=== PATIENT | male | born 1950 | race Caucasian/White ===

== ENCOUNTER → 2018-05-08 13:17 | Outpatient (CLI) | payer BC, SELFPAY ==
[2018-05-03 13:34] VITALS: BMI 31.3
[2018-05-08 16:08] LABS: AST(SGOT) 29 U/L (15-37); Alanine Aminotransfer ALT/SGPT 52 U/L (16-61); Albumin, Serum 3.9 g/dL (3.2-5.0); Alkaline Phosphatase 66 U/L (45-117); Bilirubin, Direct 0.18 mg/dL (0.00-0.30); Cholesterol 208 mg/dL (200); Globulin 3.9 g/dL (2.2-4.2); High Density Lipoprotein 45 mg/dL; Protein, Total 7.8 g/dL (6.4-8.2); Triglycerides 178 mg/dL; Very Low Density Lipoprotein 36 mg/dL (5-40)
--- OUTSIDE RECORDS SUMMARY | 2018-06-24 17:46 | XMS RPT_ITS | Clinical Summary ---
:1950 Author Organization [facility] Address [address] [place] [address] Phone Care Team Providers Name Role Phone [facility] Nurse Unavailable Unavailable Conditions or Problems Problem Name Problem Onset Status Entry Provider Comment Standard Annotate Code Date Date Description Body mass Z68.32 Active Luis S Body mass index index (BMI) (ICD-10-C 05/30 05/30 MD Faisal (BMI) 32.0-32.9, M) 32.0-32.9, adult adult Chest pain on 89643535 Active Kimberley M Chest pain on exertion (SNOMED 05/30 05/30 [place], exertion CT) RN Hyperlipidemia 11463929 Active Kimberley M Hyperlipidemia (SNOMED 05/30 05/30 [place], [place]) RN Body mass Z68.31 Inactive Kimberley M Body mass index index (BMI) (ICD-10-C 05/30 05/30 [place], (BMI) 31.0-31.9, M) RN 31.0-31.9, adult adult Medications Medication Instructions Start Stop Generic Name [facility] Provider Date Date TOPROL XL 25 MG One tablet by / METOPROLOL [id number] Luis S [id number] mouth daily 03 SUCCINATE MD Faisal PLAVIX 75 MG 4 tabs today / CLOPIDOGREL [id number] Rupert S TABS then 1 daily 03 BISULFATE MD Faisal ASPIRIN EC 81 One tablet by / ASPIRIN [id number] Kimberley M MG TBEC mouth daily DELMIS Dockery ASPIRIN EC 81 One tablet by ASPIRIN [id number] Luis S MG TBEC mouth daily MD Faisal Y-NFQTHF-F-CYST One tablet by / ACETYLCYSTEINE 25469905472 Kimberley Varela EINE 600 MG mouth twice DELMIS Dockery CAPS daily H-CLXJSZ-S-CYST One tablet by ACETYLCYSTEINE [id number] Luis S EINE 600 MG mouth twice MD Faisal CAPS daily FERROUS SULFATE One tablet by / FERROUS SULFATE [id number] Kimberley Varela 325 (65 Fe) MG mouth twice DELMIS Dockery TABS daily ASPIRIN 325 MG One tablet by / ASPIRIN [id number] Kimberley M TABS mouth daily DELMIS Dockery HYDROXYZINE HCL (Atarax) As / HYDROXYZINE HCL 40278131321 Luis S 25 MG TABS needed MD Faisal VALERIAN ROOT as needed / VALERIAN [id number] Rupert S 450 MG CAPS 03 MD Faisal GREEN Two tablets by / GREEN TEA-HOODIA [id number] Luis S TEA-HOODIA CAPS mouth daily 03 CAPS MD Faisal GARLIC TABS One tablet by / GARLIC-CALCIUM 64082055742 Luis S mouth daily 03 TABS MD Faisal VITAMIN B One tablet by / B COMPLEX 76039321553 Rupert S COMPLEX TABS mouth daily 03 VITAMINS MD Faisal OMEGA 3 CPDR One tablet by / OMEGA-3 FATTY [id number] Luis S mouth daily 03 ACIDS CPDR MD Faisal OS-MARTHA 500 + D One tablet by / CALCIUM Luis S 500-200 MG-UNIT mouth twice 03 CARBONATE-VITAMIN MD Faisal TABS daily D MULTIVITAMIN One tablet by / MULTIPLE [id number] Ru[place] S ADULT TABS mouth daily 03 VITAMINS-MINERALS MD Faisal FERROUS SULFATE One tablet by / FERROUS SULFATE [id number] Rupert S 325 (65 Fe) MG mouth daily MD Faisal TABS Medications Administered No information available. Allergies, Adverse Reactions, Alerts Allergy Name Reaction Description Start Date Severity Status Provider NKDA Critical Active Kimberley M DELMIS Dockery Results Date Name Value Unit Range Flag Description Clinical Lists Update: Preload SMOK STATUS Former smoker Tobacco use [facility] Lab Report: Basic Metabolic Profile (BMP) ANION GAP 6 5-15 anion gap, serum CO2 32.0 mmol/L 21.0-32.0 carbon dioxide, venous blood CHLORIDE 103 mmol/L 98-107 chloride, serum POTASSIUM 4.1 mmol/L 3.5-5.1 potassium, serum SODIUM 141 mmol/L 136-145 sodium, serum CALCIUM 9.7 mg/dL 8.5-10.1 calcium, serum BUN/CREAT 13.3 RATIO 10-20 urea nitrogen/creatinine ratio, serum GFRAA 91 mL/min >60 Glomerular Filtration rate GFR EST 75 mL/min >60 estimated glomerular filtration rate CREATININE 1.05 mg/dL 0.70-1.30 creatinine, serum BUN 14 mg/dL 7-18 urea nitrogen, blood GLUCOSE SER 79 mg/dL 70-110 blood glucose Plan of Care Type Date Detail Appointment 03:30 PM Selam Arciniega PA-C, [address] [facility] [address], [address], [place], [address], Pending order MMM Pending order Follow Up Appt 3 months Pending order *Hepatic Function Panel Pending order *Lipid Profile CC PCP Pending order *BMP Pending order *CBC with Differential Pending order Left Heart Cath Procedures Code Procedure Name Date Entry Date F/U MMM MMM FUA 3 months Follow Up Appt 3 months 0667-1 *BMP 0788-1 *Hepatic Function Panel 81138-5 *Lipid Profile CC PCP Vital Signs No information available.
--- OUTSIDE RECORDS SUMMARY | 2018-06-24 17:46 | XMS RPT_ITS | Clinical Summary ---
:1950 Author Organization [facility] Address [address] [place] [address] Phone Care Team Providers Name Role Phone [facility] Nurse Unavailable Unavailable Conditions or Problems Problem Name Problem Onset Status Entry Provider Comment Standard Annotate Code Date Date Description Body mass Z68.32 Active Pal[place] S Body mass index index (BMI) (ICD-10-C 05/30 05/30 MD Faisal (BMI) 32.0-32.9, M) 32.0-32.9, adult adult Chest pain on 25048788 Active Kimberley M Chest pain on exertion (SNOMED 05/30 05/30 [place], exertion CT) RN Hyperlipidemia 18633942 Active Kimberley M Hyperlipidemia (SNOMED 05/30 05/30 [place], CT) RN Body mass Z68.31 Inactive Kimberley M Body mass index index (BMI) (ICD-10-C 05/30 05/30 [place], (BMI) 31.0-31.9, M) RN 31.0-31.9, adult adult Medications Medication Instructions Start Stop Generic Name [facility] Provider Date Date TOPROL XL 25 MG One tablet by / METOPROLOL [id number] Luis S [id number] mouth daily 03 SUCCINATE MD Faisal PLAVIX 75 MG 4 tabs today / CLOPIDOGREL [id number] Luis S TABS then 1 daily 03 BISULFATE MD Faisal ASPIRIN EC 81 One tablet by / ASPIRIN 65453488286 Kimberley M MG TBEC mouth daily DELMIS Dockery ASPIRIN EC 81 One tablet by ASPIRIN 16588732607 [place] S MG TBEC mouth daily MD Faisal P-GNYRGU-D-CYST One tablet by / ACETYLCYSTEINE 24018862787 Kimberley Varela EINE 600 MG mouth twice DELMIS Dockery CAPS daily I-FKJDVT-M-CYST One tablet by ACETYLCYSTEINE 34746699458 [place] S EINE 600 MG mouth twice MD Faisal CAPS daily FERROUS SULFATE One tablet by / FERROUS SULFATE [id number] Kimberley Varela 325 (65 Fe) MG mouth twice DELMIS Dockery TABS daily ASPIRIN 325 MG One tablet by / ASPIRIN 35760965264 Kimberley M TABS mouth daily DELMIS Dockery HYDROXYZINE HCL (Atarax) As / HYDROXYZINE HCL 45751780074 [place] S 25 MG TABS needed MD Faisal VALERIAN ROOT as needed / VALERIAN 39015805465 Pal[place] S 450 MG CAPS 03 MD Faisal GREEN Two tablets by / GREEN TEA-HOODIA 51906320292 Palermo S TEA-HOODIA CAPS mouth daily 03 CAPS MD Faisal GARLIC TABS One tablet by / GARLIC-CALCIUM 00137338940 Luis S mouth daily 03 TABS MD Faisal VITAMIN B One tablet by / B COMPLEX 96043883545 Luis S COMPLEX TABS mouth daily 03 VITAMINS MD Faisal OMEGA 3 CPDR One tablet by / OMEGA-3 FATTY 87195682505 Luis S mouth daily 03 ACIDS CPDR MD Faisal OS-MARTHA 500 + D One tablet by / CALCIUM Luis S 500-200 MG-UNIT mouth twice 03 CARBONATE-VITAMIN MD Faisal TABS daily D MULTIVITAMIN One tablet by / MULTIPLE [id number] [place] S ADULT TABS mouth daily 03 VITAMINS-MINERALS MD Faisal FERROUS SULFATE One tablet by / FERROUS SULFATE [id number] Luis S 325 (65 Fe) MG mouth daily MD Faisal TABS Medications Administered No information available. 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 Dietary management education, guidance, and counseling (procedure) MEDS REVIEW Done Documentation of current medications (procedure) Lab Report: CBC W/Diff, Automated LYMPHCT AUTO 1.83 X10 3/UL 10*3/mm3 0.83-4.51 lymphocyte count, blood, automated ANC 2.8 X10 3/UL 10*3/mm3 2.0-7.7 neutrophil count, blood IMM GRANU % 0.300 % 0.0-0.9 immature granulocytes, percentage of total cells, blood BASOPHIL % 1.2 % 0-1 H basophils as percent of blood leukocytes EOSINOPHIL % 5.7 % 0-5 H eosinophils as percent of blood leukocytes MONOCYTE % 16.1 % 0-10 H monocytes as percent of blood leukocytes LYMPHS % 30.7 % 19-41 lymphocytes as percent of blood leukocytes PMN % 46.0 % 47-70 L neutrophils as percent of blood leukocytes MPV 9.7 fL 6.2-12.0 mean platelet volume PLATELETS 225 10*3/mm3 150-450 platelet count RDW-SD 45.4 fL 35.1-43.9 H red blood cell distribution width, size density RDW 13.1 % 11.6-14.6 red blood cell distribution width MCHC RBC 34.3 G/GL g/dL 32-36 mean corpuscular hemoglobin concentration, RBC MCH 32.6 pg 27.0-32.0 H mean corpuscular hemoglobin, RBC MCV 95.3 fL 80-94 H mean corpuscular volume, RBC HCT 50.2 % 40-54 hematocrit, blood HGB 17.2 g/dL 13.0-16.5 H hemoglobin, blood RBC M/UL 5.27 10*6/uL 4.6-6.2 red blood count WBC BLOOD 6.0 10*9/L 4.4-11.0 leukocyte (white blood cells) count, blood Lab Report: Basic Metabolic Profile (BMP) ANION [...] GLUCOSE SER 79 mg/dL 70-110 blood glucose Lab Report: Liver Profile BILI DIRECT 0.12 mg/dL 0.00-0.30 bilirubin, serum, direct BILI TOTAL 0.40 mg/dL 0.20-1.00 bilirubin, serum, total SGPT (ALT) 58 U/L 12-78 alanine aminotransferase (SGPT), serum ALK PHOS 81 U/L 45-117 alkaline phosphatase, serum SGOT (AST) 35 U/L 15-37 aspartate aminotransferase (SGOT), serum GLOBULIN TOT 4.0 g/dL 2.2-4.2 globulins, serum, total ALBUMIN 3.8 g/dL 3.4-5.0 albumin, serum PROTEIN, TOT 7.8 g/dL 6.4-8.2 protein, total, serum Lab Report: Lipid Profile VLDL 57 mg/dL 5-40 H very low density lipoproteins LDL 109 mg/dL 0-130 Cholesterol in LDL [Mass/volume] in Serum or Plasma HDL 40 mg/dL Cholesterol in HDL [Mass/volume] in Serum or Plasma TRIGLYCRDES 287 mg/dL H Triglyceride [Mass/volume] in Serum or Plasma CHOLESTEROL 206 mg/dL 200 H Cholesterol [Mass/volume] in Serum or Plasma Plan of Care Type Date Detail Appointment 01:00 PM Luis Malone MD, [address], [address], [place], [address], Appointment 03:30 PM Selam Arciniega PA-C, [address], [address], [place], [address], Pending order MMM Pending order Follow Up Appt 3 months Pending order *Hepatic Function Panel Pending order *Lipid Profile CC PCP Pending order *BMP Pending order *CBC with Differential Pending order Left Heart Cath Procedures Code Procedure Name Date Entry Date F/U MMM MMM FUA 3 months Follow Up Appt 3 months 0667-1 *BMP 0788-1 *Hepatic Function Panel 30036-0 *Lipid Profile CC PCP 0184-1 *CBC with Differential Vital Signs Date Name Value Unit Description BMI (Body Mass Index) 32.42 kg/m2 Body Mass Index [Ratio] BP Diastolic 84 mm[Hg] blood pressure, diastolic - 8462-4 BP Systolic 140 mm[Hg] blood pressure, systolic - 8480-6 Heart Rate 70 /min pulse rate E&M - 8867-4 Height 67 [in_us] height E&M - 8302-2 Respiratory Rate 16 /min respiratory rate E&M - 9279-1 Weight Measured 207 [lb_av] weight E&M - 3141-9
--- OUTSIDE RECORDS SUMMARY | 2018-06-24 17:46 | XMS RPT_ITS | Clinical Summary ---
:1950 Author Organization [facility] Address [address] [place] [address] Phone Care Team Providers Name Role Phone Laurie Morales RN Unavailable Unavailable Conditions or Problems Problem Name Problem Onset Status Entry Provider Comment Standard Annotate Code Date Date Description Body mass Z68.32 Active Luis S Body mass index index (BMI) (ICD-10-C 05/30 05/30 MD Faisal (BMI) 32.0-32.9, M) 32.0-32.9, adult adult Chest pain on 84714972 Active Kimberley M Chest pain on exertion (SNOMED 05/30 05/30 [place], exertion CT) RN Hyperlipidemia 44041155 Active Kimberley M Hyperlipidemia (SNOMED 05/30 05/30 [place], CT) RN Body mass Z68.31 Inactive Kimberley M Body mass index index (BMI) (ICD-10-C 05/30 05/30 [place], (BMI) 31.0-31.9, M) RN 31.0-31.9, adult adult Medications Medication Instructions Start Stop Generic Name [facility] Provider Date Date TOPROL XL 25 MG One tablet by / METOPROLOL [id number] Luis S [id number] mouth daily 03 SUCCINATE MD Faisal PLAVIX 75 MG 4 tabs today / CLOPIDOGREL [id number] [place] S TABS then 1 daily 03 BISULFATE MD Faisal ASPIRIN EC 81 One tablet by / ASPIRIN 80342686753 Kimberley M MG TBEC mouth daily DELMIS Dockery ASPIRIN EC 81 One tablet by ASPIRIN 04957117503 [place] S MG TBEC mouth daily MD Faisal L-JHDFLD-F-CYST One tablet by / ACETYLCYSTEINE 51853471310 Kimberley Varela EINE 600 MG mouth twice DELMIS Dockery CAPS daily Q-HSLGHP-X-CYST One tablet by ACETYLCYSTEINE 79964824044 Luis S EINE 600 MG mouth twice MD Faisal CAPS daily FERROUS SULFATE One tablet by / FERROUS SULFATE [id number] Kimberley Varela 325 (65 Fe) MG mouth twice DELMIS Dockery TABS daily ASPIRIN 325 MG One tablet by / ASPIRIN 57977753896 Kimberley M TABS mouth daily DELMIS Dockery HYDROXYZINE HCL (Atarax) As / HYDROXYZINE HCL 40391813157 Luis S 25 MG TABS needed 03 MD Faisal VALERIAN ROOT as needed / VALERIAN 24017297502 Luis S 450 MG CAPS 03 MD Faisal GREEN Two tablets by / GREEN TEA-HOODIA [id number] [place] S TEA-HOODIA CAPS mouth daily 03 CAPS MD Faisal GARLIC TABS One tablet by / GARLIC-CALCIUM 93174589046 [place] S mouth daily 03 TABS MD Faisal VITAMIN B One tablet by / B COMPLEX 74919009340 Luis S COMPLEX TABS mouth daily 03 VITAMINS MD Faisal OMEGA 3 CPDR One tablet by / OMEGA-3 FATTY 79453110042 Luis S mouth daily 03 ACIDS CPDR MD Faisal OS-MARTHA 500 + D One tablet by / CALCIUM Luis S 500-200 MG-UNIT mouth twice 03 CARBONATE-VITAMIN MD Faisal TABS daily D MULTIVITAMIN One tablet by / MULTIPLE 95326041004 [place] S ADULT TABS mouth daily 03 VITAMINS-MINERALS MD Faisal FERROUS SULFATE One tablet by / FERROUS SULFATE 71461260187 Luis S 325 (65 Fe) MG mouth daily MD Faisal TABS Medications Administered No information available. 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 Dietary management education, guidance, and counseling [...] H Cholesterol [Mass/volume] in Serum or Plasma Clinical Lists Update: Preload LUISITO 60 % Left ventricular Ejection fraction Plan of Care Type Date Detail Appointment 01:00 PM Luis Malone MD, [address], [address], [place], [address], Appointment 03:30 PM Selam Arciniega PA-C, [address], [address], [place], [address], Pending order MMM Pending order Follow Up Appt 3 months Pending order *Hepatic Function Panel Pending order *Lipid Profile CC PCP Pending order *BMP Pending order *CBC with Differential Pending order Left Heart Cath Procedures Code Procedure Name Date Entry Date F/U MMM MMM FUA 3 months Follow Up Appt 3 months 0667-1 *BMP 0788-1 *Hepatic Function Panel 76060-7 *Lipid Profile CC PCP 0184-1 *CBC with [...]
--- OUTSIDE RECORDS SUMMARY | 2018-06-24 17:46 | XMS RPT_ITS | Clinical Summary ---
:1950 Author Organization [facility] Address [address] [place] [address] Phone Care Team Providers Name Role Phone DELMIS Dockery, Kimberley Varela Unavailable Unavailable Conditions or Problems Problem Name Problem Onset Status Entry Provider Comment Standard Annotate Code Date Date Description Chest pain on 90731284 Active Kimberley Varela Chest pain on exertion (SNOMED 05/30 05/30 [place], exertion CT) RN Hyperlipidemia 68924892 Active Kimberley Varela Hyperlipidemia (SNOMED 05/30 05/30 [place], CT) RN Body mass index Z68.31 Active Kimberley Varela Body mass index (BMI) 31.0-31.9, (ICD-10-C 05/30 05/30 [place], (BMI) adult M) RN 31.0-31.9, adult Medications Medication Instructions Start Stop Generic Name [facility] Provider Date Date FERROUS One tablet by FERROUS SULFATE [id number] Kimberley Nichole SULFATE 325 mouth twice 2 [place], RN (65 Fe) MG daily TABS U-CPBHNV-I-CYS One tablet by ACETYLCYSTEINE 05015740014 Kimberley Varela TEINE 600 MG mouth twice 2 [place], RN CAPS daily ASPIRIN 325 MG One tablet by ASPIRIN [id number] Kimberley Nichole TABS mouth daily 2 [place], RN ASPIRIN EC 81 One tablet by ASPIRIN 62739672261 Kimberley M MG TBEC mouth daily 2 [place], RN Medications Administered No information available. Allergies, Adverse Reactions, Alerts Allergy Name Reaction Description Start Date Severity Status Provider NKDA Critical Active Kimberley Dockery RN Results Date Name Value Unit Range Flag Description Clinical Lists Update: Preload SMOK STATUS Former smoker Tobacco use [facility] Plan of Care Type Date Detail Appointment 01:00 PM Luis Malone MD, [address] [facility], [address], [place], [address], Procedures No information available. Vital Signs No information available.
--- OUTSIDE RECORDS SUMMARY | 2018-06-24 17:46 | XMS RPT_ITS | Clinical Summary ---
:1950 Author Organization [facility] Address [address] [place] [address] Phone Care Team Providers Name Role Phone MD Faisal, [place] S Unavailable [ ] Conditions or Problems Problem Name Problem Onset Status Entry Provider Comment Standard Annotate Code Date Date Description Body mass Z68.32 Active Luis S Body mass index index (BMI) (ICD-10-C 05/30 05/30 MD Faisal (BMI) 32.0-32.9, M) 32.0-32.9, adult adult Chest pain on 13581200 Active Kimberley Varela Chest pain on exertion (SNOMED 05/30 05/30 [place], exertion CT) RN Hyperlipidemia 42436291 Active Kimberley Nichole Hyperlipidemia (SNOMED 05/30 05/30 [place], CT) RN Body mass Z68.31 Inactive Kimberley M Body mass index index (BMI) (ICD-10-C 05/30 05/30 [place], (BMI) 31.0-31.9, M) RN 31.0-31.9, adult adult Medications Medication Instructions Start Stop Generic Name [facility] Provider Date Date TOPROL XL 25 MG One tablet by / METOPROLOL [id number] [place] S [id number] mouth daily 03 SUCCINATE MD Faisal PLAVIX 75 MG 4 tabs today / CLOPIDOGREL 31387742315 [place] S TABS then 1 daily 03 BISULFATE MD Faisal ASPIRIN EC 81 One tablet by ASPIRIN 77441051866 Kimberley M MG TBEC mouth daily DELMIS Dockery ASPIRIN EC 81 One tablet by ASPIRIN 05554403797 [place] S MG TBEC mouth daily MD Faisal M-BIZCWV-A-CYST One tablet by / ACETYLCYSTEINE 18974212368 Kimberley Nichole EINE 600 MG mouth twice DELMIS Dockery CAPS daily V-KRKJNF-H-CYST One tablet by ACETYLCYSTEINE 99829635348 [place] S EINE 600 MG mouth twice MD Faisal CAPS daily FERROUS SULFATE One tablet by / FERROUS SULFATE 33036649636 Kimberley M 325 (65 Fe) MG mouth twice DELMIS Dockery TABS daily ASPIRIN 325 MG One tablet by / ASPIRIN 59563541939 Kimberley Nichole TABS mouth daily DELMIS Dockery HYDROXYZINE HCL (Atarax) As / HYDROXYZINE HCL 49520143077 [place] S 25 MG TABS needed MD Faisal VALERIAN ROOT as needed / VALREINALDON 98464550446 [place] S 450 MG CAPS 03 MD Faisal GREEN Two tablets by / GREEN TEA-HOODIA 06089267609 [place] TEA-HOODIA CAPS mouth daily 03 CAPS MD Faisal GARLIC TABS One tablet by / GARLIC-CALCIUM 39325319928 [place] S mouth daily 03 TABS MD Faisal VITAMIN B One tablet by / B COMPLEX 86458868691 Luis S COMPLEX TABS mouth daily 03 VITAMINS MD Faisal OMEGA 3 CPDR One tablet by / OMEGA-3 FATTY 20337396748 [place] S mouth daily 03 ACIDS CPDR MD Faisal OS-MARTHA 500 + D One tablet by / CALCIUM Luis S 500-200 MG-UNIT mouth twice 03 CARBONATE-VITAMIN MD Faisal TABS daily D MULTIVITAMIN One tablet by / MULTIPLE 36851278843 [place] S ADULT TABS mouth daily 03 VITAMINS-MINERALS MD Faisal FERROUS SULFATE One tablet by / FERROUS SULFATE 08757058049 Luis S 325 (65 Fe) MG mouth daily MD Faisal TABS Medications Administered No information available. 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
--- OUTSIDE RECORDS SUMMARY | 2018-06-24 17:46 | XMS RPT_ITS | Clinical Summary ---
:1950 Author Organization [facility] Address [address] [place] [address] Phone Care Team Providers Name Role Phone MD Faisal, Griffin S Unavailable [ ] Conditions or Problems Problem Name Problem Onset Status Entry Provider Comment Standard Annotate Code Date Date Description Body mass Z68.32 Active Luis S Body mass index index (BMI) (ICD-10-C 05/30 05/30 MD Faisal (BMI) 32.0-32.9, M) 32.0-32.9, adult adult Chest pain on 82559542 Active Kimberley Varela Chest pain on exertion (SNOMED 05/30 05/30 [place], exertion CT) RN Hyperlipidemia [id number] Active Kimberley Nichole Hyperlipidemia (SNOMED 05/30 05/30 [place], CT) RN Body mass Z68.31 Inactive Kimberley M Body mass index index (BMI) (ICD-10-C 05/30 05/30 [place], (BMI) 31.0-31.9, M) RN 31.0-31.9, adult adult Medications Medication Instructions Start Stop Generic Name [facility] Provider Date Date TOPROL XL 25 MG One tablet by / METOPROLOL [id number] Griffin S [id number] mouth daily 03 SUCCINATE MD Faisal PLAVIX 75 MG 4 tabs today / CLOPIDOGREL [id number] Griffin S TABS then 1 daily 03 BISULFATE MD Faisal ASPIRIN EC 81 One tablet by ASPIRIN [id number] Kimberley M MG TBEC mouth daily DELMIS Dockery ASPIRIN EC 81 One tablet by ASPIRIN [id number] Griffin S MG TBEC mouth daily MD Faisal G-SATQOA-V-CYST One tablet by / ACETYLCYSTEINE [id number] Kimberley Nichole EINE 600 MG mouth twice DELMIS Dockery CAPS daily G-ICEBJF-H-CYST One tablet by ACETYLCYSTEINE [id number] Griffin S EINE 600 MG mouth twice MD Faisal CAPS daily FERROUS SULFATE One tablet by / FERROUS SULFATE [id number] Kimberley M 325 (65 Fe) MG mouth twice DELMIS Dockery TABS daily ASPIRIN 325 MG One tablet by / ASPIRIN [id number] Kimberley Nichole TABS mouth daily DELMIS Dockery HYDROXYZINE HCL (Atarax) As / HYDROXYZINE HCL [id number] Griffin S 25 MG TABS needed MD Faisal VALERIAN ROOT as needed / VALREINALDON 91566526990 Griffin S 450 MG CAPS 03 MD Faisal GREEN Two tablets by / GREEN [place] [id number] Griffin S [place] CAPS mouth daily 03 CAPS MD Faisal GARLIC TABS One tablet by / GARLIC-CALCIUM [id number] Griffin S mouth daily 03 TABS MD Faisal VITAMIN B One tablet by / B COMPLEX [id number] Luis S COMPLEX TABS mouth daily 03 VITAMINS MD Faisal OMEGA 3 CPDR One tablet by / OMEGA-3 FATTY [id number] Griffin S mouth daily 03 ACIDS CPDR MD Faisal OS-MARTHA 500 + D One tablet by / CALCIUM Luis S 500-200 MG-UNIT mouth twice 03 CARBONATE-VITAMIN MD Faisal TABS daily D MULTIVITAMIN One tablet by / MULTIPLE [id number] Griffin S ADULT TABS mouth daily 03 VITAMINS-MINERALS MD Faisal FERROUS SULFATE One tablet by / FERROUS SULFATE [id number] Luis S 325 (65 Fe) MG mouth daily MD Faisal TABS Medications Administered No information available. Allergies, Adverse Reactions, Alerts Allergy Name Reaction Description Start Date Severity Status Provider NKDA Critical Active Kimberley Dockery RN Results Date Name Value Unit Range Flag Description Clinical Lists Update: Preload SMOK STATUS Former smoker Tobacco use [facility] Lab Report: CBC W/Diff, Automated LYMPHCT AUTO [...] Appointment 03:30 PM Selam Arciniega PA-C, [address], [place], [address], Pending order MMM Pending order Follow Up Appt 3 months Pending order *Hepatic Function Panel Pending order *Lipid Profile CC PCP Pending order *BMP Pending order *CBC with Differential Pending order Left Heart Cath Procedures Code Procedure Name Date Entry Date F/U MMM MM FUA 3 months Follow Up Appt 3 months 0667-1 *BMP 0788-1 *Hepatic Function Panel 78790-7 *Lipid Profile CC PCP 0184-1 *CBC with Differential Vital Signs No information available.
--- OUTSIDE RECORDS SUMMARY | 2018-06-24 17:47 | XMS RPT_ITS ---
:1950 Author Organization OHIP Care Team Providers Name Role Phone FaisalJeyson nielsenl Attending Unavailable Faisal, [place] Referring Unavailable Mainor Childress Primary Care Unavailable Selam Arciniega Attending Unavailable Mainor Childress Referring Unavailable FaisalLuis nielsen Attending Unavailable Mainor Childress Referring Unavailable CHRISTOPHER ANGUIANO Admitting Unavailable CHRISTOPHER ANGUIANO Attending Unavailable NOE RODRIGUEZ (PA) Referring Unavailable JOSE HENAO (NUCLEAR EQUIPMENT DESIGN ENGINEER) Referring Unavailable JOSE HENAO (NUCLEAR EQUIPMENT DESIGN ENGINEER) Attending Unavailable JOSE HENAO (NUCLEAR EQUIPMENT DESIGN ENGINEER) Referring Unavailable JOSE HENAO (NUCLEAR EQUIPMENT DESIGN ENGINEER) Referring Unavailable JOSE HENAO (NUCLEAR EQUIPMENT DESIGN ENGINEER) Attending Unavailable JOSE HENAO (NUCLEAR EQUIPMENT DESIGN ENGINEER) Referring Unavailable PROBLEMS PROBLEMS DATE TYPE CONDITION / CODE ATTENDING STATUS SOURCE 05/08/2018 Unknown I25.10 - Faisal, [place] Active [place] Atherosclerotic heart Community disease of [facility] coronary artery Repository without angina pectoris / I25.10(ICD-10) 05/08/2018 Unknown E78.00 - Pure Faisal, Luis Active [place] hypercholesterolemia, Community unspecified / Hospital E78.00(ICD-10) Repository 07/31/2017 Active Malignant neoplasm of NA Active [place] ascending colon / Clinic Main C18.2(ICD-10) [place] Repository 02/23/2017 Active Personal history of NA Active [place] other malignant Clinic Main neoplasm of large [place] intestine / Repository Z85.038(ICD-10) 06/23/2017 Active Encounter for ANNMARIE, Active [place] screening for CHRISTOPHER T [facility] Main malignant neoplasm of [place] colon / Repository Z12.11(ICD-10) PROCEDURES PROCEDURES No Procedure Records FoundRESULTS RESULTS LIVER PROFILE Collected: 05/08/2018 Status: F Source: [place] 1:29 PM [facility] REPOSITORY TYPE CODE TESTS RESULT OUT OF RANGE REFERENCE UNITS LAB L501.1500 6.4-8.2 g/dL Normal T PROT 7.8 LAB L501.1800 3.2-5.0 g/dL Normal ALB 3.9 LAB L501.1950 2.2-4.2 g/dL Normal GLOB 3.9 LAB L501.4100 15-37 U/L Normal AST 29 LAB L501.4305 45-117 U/L Normal ALK P 66 LAB L501.4405 16-61 U/L Normal ALT 52 LAB L501.4600 0.20-1.00 mg/dL Normal T BILI 0.60 LAB L501.4700 0.00-0.30 mg/dL Normal D BILI 0.18 Performed By: #### L500.3400, L500.4100 #### [facility] [address] [place], [address] LIPID PROFILE Collected: 05/08/2018 Status: F Source: [place] 1:29 PM [facility] REPOSITORY TYPE CODE TESTS RESULT OUT OF RANGE REFERENCE UNITS LAB L501.4900 200 mg/dL High CHOL 208 Result Comment: <200 mg/dL Desirable 200-240 mg/dL Borderline >240 mg/dL High Risk LAB L501.5000 mg/dL Normal TRIG 178 Result Comment: The drugs N-Acetylcysteine and Metamizole may falsely depress this assay. Serum Triglycerides Reference Interval Normal <150 mg/dL Borderline high 150 - 199 mg/dL High 200 - 499 mg/dL Very High > or = 500 mg/dL LAB L501.6400 mg/dL Normal HDL 45 Result Comment: The drugs N-Acetylcysteine and Metamizole may falsely depress this assay. Reference Range HDL <40 mg/dL Low HDL Cholesterol HDL >or= 60 mg/dL High HDL Cholesterol LAB L501.6500 0-130 mg/dL Normal LDL 127 LAB L501.6600 5-40 mg/dL Normal VLDL 36 Performed By: #### L500.3400, L500.4100 #### [facility] [address] [place], [address] CARDIOLOGY VISIT Observed: 05/03/2018 Status: F Source: [place] REPORT 1:40 PM [facility] REPOSITORY [facility] [address] [place] [address] OFFICE VISIT Date of Service: 05/03/18 MR#: [id number] Acct: [id number] Name: CHRISTOPHER WILLIAMSON Rep #: [id number] : 1950 Provider: Luis Malone MD Age/Sex: 67/M Location: [facility] Status: Signed HPI HPI Chief Complaint: Follow-up visit. Details: CHRISTOPHER WILLIAMSON, is a 67 M who presents to the office today for a follow-up visit. He is a gentleman with a history of mild coronary artery disease with 50-60% stenosis noted in the ramus intermedius vessel. He denies any chest pain or shortness breath or paroxysmal nocturnal dyspnea or pedal edema his been compliant with his medications. He has had no dizziness or diaphoresis no near syncope or syncope. His physical exam today demonstrates clear lung reina regular rate and rhythm and no pedal edema. Intake Vital Signs05/03/18 Height 5 ft 8 in 05/03/18 Weight: 206 lb 05/03/18 Body Mass Index (BMI) 31.3 05/03/18 Blood Pressure 138/78 H 05/03/18 Blood Pressure Location Lt brachial Intake Visit Reasons: 1 Y F U Allergies No Known Allergies Allergy (Verified 05/03/18 13:35) Medications B Complex with Vitamin C [Super B Complex with C] 1 ea PO DAILY 06/28/13 [History Confirmed 05/03/18] Calcium Carb/Vitamin D [Os-Martha 500MG + D] 1 tab PO BID 06/28/13 [History Confirmed 05/03/18] Garlic 1 tab PO DAILY 06/28/13 [History Confirmed 05/03/18] Green Tea/Hoodia Gordonii [Sv Green Tea Plus Hoodia Cap] 2 ea PO DAILY 06/28/13 [History Confirmed 05/03/18] Multivitamins,Therapeutic [Multivitamin] 1 tab PO DAILY 06/28/13 [History Confirmed 05/03/18] Valerian Root 450 mg PO QHS 06/28/13 [History Confirmed 05/03/18] Aspirin 325 mg PO DAILY@0800 04/07/17 [History Confirmed 05/03/18] Ferrous Sulfate 325 mg PO DAILY@0800 04/07/17 [History Confirmed 05/03/18] Hydroxyzine HCl 25 mg PO DAILY PRN 04/07/17 [History Confirmed 05/03/18] calcium carbonate 500 mg (1,250 mg)-vitamin D3 200 unit tablet 1 tab PO BID 05/02/17 [History Confirmed 05/03/18] green tea 315 mg-hoodia gordonii 12.5 mg capsule cap PO 05/02/17 [History Confirmed 05/03/18] omega-3 fatty acids 1,000 mg capsule 1,000 mg PO QDAY 05/02/17 [History Confirmed 05/03/18] metoprolol succinate ER 50 mg tablet,extended release 24 hr 50 mg PO QDAY #90 tab 05/03/18 [Rx Confirmed 05/03/18] [facility] History Atherosclerotic heart disease of [place] coronary artery without angina pectoris (Chronic) Hyperlipidemia (Chronic) Adenocarcinoma, colon (Chronic) Anemia (Chronic) Surgical History H/O cardiac catheterization (Chronic) H/O hemicolectomy (Inactive) Social History Smoking Status: Former smoker alcohol intake: current alcohol intake frequency: holidays/special occasions only Alcohol type: beer ROS Const Const: Negative for fatigue, weakness, night sweats, excessive sweating, frequent falls, headache(s) or daytime sleepiness Eyes Eyes: Negative for loss of peripheral vision, transient loss of vision, blind spots, double vision or blurry vision ENT ENT: Negative for headache(s), dizziness, balance problems, Nosebleed/epistaxis, tongue swelling or lip swelling Cardio Chest Pain: No Palpitations: No Edema: None Muscle aches with walking: None Resp Respiratory: Negative for SOB at rest, SOB orthopnea\SOB lying down, Cough, paroxysmal nocturnal dyspnea or SOB with activity GI GI: Negative nausea, vomiting, heartburn, black,tarry stools or bright, red blood in stools : Negative for hematuria Musc Musc: Negative for balance problems, muscle aches/ myalgia, muscle weakness or joint pain Skin Skin: Negative non-healing lesions, unusual bruising or rash Neuro Neuro: Negative for weakness, frequent falls, headache(s), double vision, dizziness, lightheadedness, orthostatic symptoms, blurry vision or lack of coordination Elfe[place] Hematologic/Lymphatic: Negative for easy bruising or easy bleeding Endo Endo: Negative for fatigue, excessive sweating, cold intolerance, heat intolerance, increased thirst/drinking or hair loss Psych Psych: Negative for anxiety or depression Allergy Allergy/Immunology: Negative for throat swelling, Negative for tongue swelling, Negative for hives, Negative for rash, Negative for lip swelling Cardiology Exam Const Appearance: cooperative, healthy appearing, well developed, well groomed and no acute distress Nutritional Appearance: well nourished and average body habitus Orientation: alert, awake and oriented x3 Head Head: normal to inspection, normocephalic and atraumatic Ears: hearing grossly normal bilaterally and external ears normal Nose: external nose normal, nasal mucous membranes and turbinates normal, nares normal, septum normal, no nasal discharge Face and Sinus: face symmetric Mouth: oral mucosae normal, tongue normal, oropharynx normal and moist mucous membranes Teeth and gingiva: dentition normal Throat: posterior oropharynx normal, tonsils normal and uvula midline Eyes General: appearance normal, both eyes and all related structures Eyelids: eyelids normal Conjunctivae: conjunctivae normal Pupils: PERRL, normal by confrontation and accommodation normal EOM: EOM intact bilaterally Neck Neck: normal visual inspection, trachea midline and no JVD JVD: +5 Carotids: normal carotid upstroke and bounding pulses Chest Chest inspection: normal inspection of the chest, symmetric chest movement and normal respiratory effort Auscultation: Bilateral: Clear to Auscultation Cardio Palpation: normal PMI Rate: regular rate Rhythm: regular rhythm Heart sounds: S1 normal, S2 normal and normal, physiologic split S2; negative rub, gallop or murmur GI GI: normal to inspection, soft, no hepatosplenomegaly and bowel sounds present Neuro General: alert, awake, oriented x3, no focal sensory deficit, gait normal and moves all extremities Skin Skin: no rashes or lesions noted Extremities Pulses: Normal: Right Femoral Pulse, Left Femoral Pulse, Right Dorsalis Pedis Pulse, Left Dorsalis Pedis Pulse, Right Posterior Tibial Pulse, Left Posterior Tibial Pulse, Right Radial Pulse, Left Radial Pulse Lower Extremity Edema: None: Bilateral Musculoskel Musculoskeletal: No joint tenderness Psych Psychological: normal affect Assessment AND Plan 1. Atherosclerosis of [place] coronary artery of [place] heart without angina pectoris I25.10 non-obstructive CAD of [place] Plan He does have a history of mild coronary artery disease. At this time my recommendation will be for him to do with risk factor modification and exercise. He has not had any recurrence of his chest discomfort and we will continue following him. He will remain on his baby aspirin for now. Orders Orders: 2. Pure hypercholesterolemia E78.00 Plan We will continue to modify his risk factors by obtaining a repeat lipid profile. Depending on the findings further recommendations will be made. In the meantime he will continue with his usual supplements. Orders Orders: Plan Detail Other Medications Refilled: Coding Level of Care Code Off vis,est,level 3 Diagnoses Atherosclerosis of [place] coronary artery of [place] heart without angina pectoris I25.10 [place] vs. transplanted heart: [place] heart Pure hypercholesterolemia E78.00 Hyperlipidemia type: pure hypercholesterolemia Coding Level of Care Code Off vis,est,level 3 Diagnoses Atherosclerosis of [place] coronary artery of [place] heart without angina pectoris I25.10 [place] vs. transplanted heart: [place] heart Pure hypercholesterolemia E78.00 Hyperlipidemia type: pure hypercholesterolemia 05/03/18 1340 <Electronically signed by Luis Malone MD> Date Luis Malone MD Cosigner Signature: Date (if applicable) CC: Mainor Childress MD PROGRESS Observed: 02/01/2018 Status: COMPLETED Source: [place] 8:39 AM [facility] [place] REPOSITORY O ID: [id number] Author: Jose Henao Service: (none) Author Type: Nurse Practitioner Type: Progress Notes Filed: 02/01/2018 9:45 AM Note Text: Chief Complaint Patient presents with: Established Patient HPI: Christopher Williamson is a 67 year old male who presents here today for follow up colon cancer. 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 He was noted to have HASEEB. A CT of the A/P was obtained and patient was referred to Dr. Anguiano for colonoscopy. ?? The CT demonstrated what appeared to be a malignant mass just distal to the haptic flexure with no evidence metastatic disease. ?? Colonoscopy revealed circumferential tumor just distal to hepatic flexure. ?? Underwent colectomy 07/05/13: Final pathology: 7 cm adenocarcinoma with 30% mucinous differentiation invading through muscularis porpria into the subserosal adipose tissue and not to serosal surface. Low grade. No AL invasion. No perineural invasion. No tumor perforation. 34 LNs all negative. IHC for MSH2, MSH6, MLH-1 and PMS2 all positive. Ki76 positive; high. ?? Had Oncotype testing. Suggested potential benefit from chemotherapy, but he declined. ?? Colonoscopy done in August 2014. Repeat in 3 years-Annmarie. Colonoscopy done 2017-Next due in 5 years. ? No complaints.? Appetite:too good?Energy level:not too bad Denies fevers or recent illness. Resp:denies cough or sob Cardiac:denies chest pain/palpitations GI:denies abd pain,?n/v, moving bowels regularly :denies dysuria/hematuria Extrem:denies back/bone/joint pain Neuro:occ.?tingling to fingers/toes-mostly resolved Skin:denies rashes/lesions? Heme:denies bleeding The ROS is otherwise negative. Past medical history, appointments, medications, allergies reviewed. No changes. EXAM: BP 142/76 Pulse 65 Temp 37.3 ?C (99.1 ?F) (Oral) Wt 93.7 kg (206 lb 8 oz) BMI 31.40 kg/m? APPEARANCE Well appearing, alert, in no acute distress, well-hydrated, well nourished. HEART RRR with normal S1 and S2, no murmurs LUNG clear to auscultation LYMPH NODES No cervical lymphadenopathy, No supraclavicular lymphadenopathy and No axillary lymphadenopathy. ABDOMEN bowel sounds normoactive, no bruits, soft, non-tender, non-distended, without organomegaly or palpable masses EXTREMITIES No edema NEURO Awake, alert and oriented x 3, Normal gait and No involuntary motions. SKIN Skin color, texture, turgor normal, no suspicious rashes or lesions ASSESSMENT/PLAN: 1. Malignant neoplasm of ascending colon (HCC) - ICD9: 153.6, ICD10: C18.2 pT3 N0 M0 low grade adenocarcinoma of the ascending colon. - ?No concerning findings on exam. - ?CEA pending. - ?CT's as indicated. - ?Colonoscopy due in 4 1/2 years-Dr. Anguiano. - ?Follow up in 6 months with CEA-pending today's CEA. - ?Pt. aware to call office with any questions/concerns. ? The patient indicates understanding of these issues and agrees with the plan. Jose Henao APRN.CNP CNOVSP Observed: 02/01/2018 Status: COMPLETED Source: [place] 8:30 AM [facility] REPOSITORY Visit (SP) Office ([place]) MELVINCHRISTOPHER CHAVARRIA Nichole ([id number]) 1950 M Date Time Provider Department 02/01/18 8:30 AM JOSE HENAO ([place]) [place] During your visit today, we recorded the following information about you: Temperature Pulse Blood pressure Weight 99.1 degrees 65/minute 142/76 93.7 kg Mi Watts LPN 02/01/2018 8:45 AM Signed Est patient. Six month office visit. CEA level this morning. Mi Henao APRN.CNP 02/01/2018 9:45 AM Signed Chief Complaint Patient presents with: Established Patient HPI: Christopher Abdullahitegan is a 67 year old male who presents here today for follow up colon cancer. 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 He was noted to have HASEEB. A CT of the A/P was obtained and patient was referred to Dr. Anguiano for colonoscopy. ?? The CT demonstrated what appeared to be a malignant mass just distal to the haptic flexure with no evidence metastatic disease. ?? Colonoscopy revealed circumferential tumor just distal to hepatic flexure. ?? Underwent colectomy 07/05/13: Final pathology: 7 cm adenocarcinoma with 30% mucinous differentiation invading through muscularis porpria into the subserosal adipose tissue and not to serosal surface. Low grade. No AL invasion. No perineural invasion. No tumor perforation. 34 LNs all negative. IHC for MSH2, MSH6, MLH-1 and PMS2 all positive. Ki76 positive; high. ?? Had Oncotype testing. Suggested potential benefit from chemotherapy, but he declined. ?? Colonoscopy done in August 2014. Repeat in 3 years-Annmarie. Colonoscopy done 2017-Next due in 5 years. ? No complaints.? Appetite:too good?Energy level:not too bad Denies fevers or recent illness. Resp:denies cough or sob Cardiac:denies chest pain/palpitations GI:denies abd pain,?n/v, moving bowels regularly :denies dysuria/hematuria Extrem:denies back/bone/joint pain Neuro:occ.?tingling to fingers/toes-mostly resolved Skin:denies rashes/lesions? Heme:denies bleeding The ROS is otherwise negative. Past medical history, appointments, medications, allergies reviewed. No changes. EXAM: BP 142/76 Pulse 65 Temp 37.3 ?C (99.1 ?F) (Oral) Wt 93.7 kg (206 lb 8 oz) BMI 31.40 kg/m? APPEARANCE Well appearing, alert, in no acute distress, well- hydrated, well nourished. HEART RRR with normal S1 and S2, no murmurs LUNG clear to auscultation LYMPH NODES No cervical lymphadenopathy, No supraclavicular lymphadenopathy and No axillary lymphadenopathy. ABDOMEN bowel sounds normoactive, no bruits, soft, non-tender, non-distended, without organomegaly or palpable masses EXTREMITIES No edema NEURO Awake, alert and oriented x 3, Normal gait and No involuntary motions. SKIN Skin color, texture, turgor normal, no suspicious rashes or lesions ASSESSMENT/PLAN: 1. Malignant neoplasm of ascending colon (HCC) - ICD9: 153.6, ICD10: C18.2 pT3 N0 M0 low grade adenocarcinoma of the ascending colon. - ?No concerning findings on exam. - ?CEA pending. - ?CT's as indicated. - ?Colonoscopy due in 4 1/2 years-Dr. Anguiano. - ?Follow up in 6 months with CEA-pending today's CEA. - ?Pt. aware to call office with any questions/concerns. ? The patient indicates understanding of these issues and agrees with the plan. Jose Henao APRN.NUCLEAR EQUIPMENT DESIGN ENGINEER Referring Provider: JOSE HENAO ([facility]) [[id number]] Allergies As of Date: 02/01/2018 Noted Allergy Reaction SEASONAL ALLERGIES 06/19/2013 14 - Other: See Comments Comments: Stuffy nose Date Reviewed: 02/01/2018 Reviewed by: Jose (Egg Packer) Earlene - Fully Assessed Reason for Visit: Established Patient [175] Primary Visit Diagnosis:Malignant neoplasm of ascending colon (HCC) [C18.2] Follow-up and Disposition History Recorded Prescriptions as of 02/01/2018 Sig: ASPIRIN 325 MG TABLET Take 325 mg by mouth once santos* METOPROLOL SUCCINATE ER 50 MG* Take 50 mg by mouth once jah* IRON ORAL Take 1 tablet by mouth once d* ADVIL PM ORAL Take 1 tablet by mouth at bed* VALERIAN ROOT ORAL Take 2 tablets by mouth at be* GREEN TEA-HOODIA GORDONII ORAL Take 2 tablets by mouth once * GARLIC 1,000 MG CAPSULE Take 1 tablet by mouth once d* SUPER B COMPLEX ORAL Take 1 tablet by mouth once d* OMEGA-3 FATTY ACIDS-FISH OIL * Take 2 capsules by mouth once* OS-MARTHA ORAL Take 1 tablet by mouth once d* ONE DAILY ACTIVE ORAL Take 1 tablet by mouth once d* Medication notes this encounter HYDROXYZINE HCL 25 MG TABLET >> Mi Watts LPN 02/01/2018 8:27 AM >> MI WATTS LPN [facility] Feb 01, 2018 8:27 AM 2 tabs >> Mi Watts LPN 02/01/2018 8:28 AM >> MI WATTS LPN Anabel Feb 01, 2018 8:28 AM Not taking Problem List As Of Date 02/01/2018 Noted Resolved OTHER LUNG DISEASE NEC [J98.4] INVALID FOR* Colon cancer [C18.9] INVALID FOR* Personal history of colon cancer [Z85.038] INVALID FOR* Malignant neoplasm of ascending colon (HCC) [C1*INVALID FOR* Visit Notes: >> Mi Watts ROJELIO Anabel Feb 01, 2018 8:28 AM Status: Signed Est patient. Six month office visit. CEA level this morning. Mi Watts LPN Encounter Status:Closed by JOSE HENAO CNP on 02/01/18 CEA Collected: 02/01/2018 Status: F Source: [place] 8:08 AM [facility] REPOSITORY TYPE CODE TESTS RESULT OUT OF RANGE REFERENCE UNITS LAB CEA 0.0-2.9 ng/mL CEA 2.9 Result Comment: Test analyzed by the [employer] DxI method. Performed By: #### CEA #### [facility] [employer] [address] [place], [place] [address] CNOVSP Observed: 07/31/2017 Status: COMPLETED Source: [place] 8:30 AM [facility] REPOSITORY Visit (SP) Office ([place]) CHRISTOPHER WILLIAMSON ([id number]) 1950 M Date Time Provider Department 07/31/17 8:30 AM JOSE HENAO) [place] During your visit today, we recorded the following information about you: Temperature Pulse Blood pressure Weight 97.5 degrees 59/minute 141/86 96.6 kg Miranda Velásquez LPN, LPN 07/31/2017 8:22 AM Signed Est pt, 6 month f/u. Had labs done this morning ROJELIO Silva CNP 07/31/2017 8:38 AM Signed Chief Complaint Patient presents with: Established Patient HPI: Christopher Varela Renato is a 66 year old male who presents here today for follow up colon cancer. 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 He was noted to have HASEEB. A CT of the A/P was obtained and patient was referred to Dr. Anguiano for colonoscopy. ?? The CT demonstrated what appeared to be a malignant mass just distal to the haptic flexure with no evidence metastatic disease. ?? Colonoscopy revealed circumferential tumor just distal to hepatic flexure. ?? Underwent colectomy 07/05/13: Final pathology: 7 cm adenocarcinoma with 30% mucinous differentiation invading through muscularis porpria into the subserosal adipose tissue and not to serosal surface. Low grade. No AL invasion. No perineural invasion. No tumor perforation. 34 LNs all negative. IHC for MSH2, MSH6, MLH-1 and PMS2 all positive. Ki76 positive; high. ?? Had Oncotype testing. Suggested potential benefit from chemotherapy, but he declined. ?? Colonoscopy done in August 2014. Repeat in 3 years-Annmarie. ? No complaints.?? Colonoscopy done 2017. Planning to retire next month. ?? Appetite:ANDquot;too goodANDquot; Energy level:ANDquot;not badANDquot; Denies fevers or recent illness. Resp:denies cough or sob Cardiac:denies chest pain/palpitations -ANDquot;I had a heart cath May.03 because I was having L arm pain-one artery was partially blocked but not enough to stent.ANDquot; GI:denies abd pain other than above, denies?n/v, moving bowels regularly :denies dysuria/hematuria Extrem:denies back/bone/joint pain Neuro:occ.?tingling to fingers/toes Skin:denies rashes/lesions Heme:denies bleeding The ROS is otherwise negative. Past medical history, appointments, medications, allergies reviewed. No changes. EXAM: BP 141/86 Pulse (!) 59 Temp 36.4 ?C (97.5 ?F) Wt 96.6 kg (213 lb) BMI 32.39 kg/m2 APPEARANCE Well appearing, alert, in no acute distress, well- hydrated, well nourished. HEART RRR with normal S1 and S2, no murmurs LUNG clear to auscultation LYMPH NODES No cervical lymphadenopathy, No supraclavicular lymphadenopathy and No axillary lymphadenopathy. ABDOMEN bowel sounds normoactive, no bruits, soft, non-tender, non-distended, without organomegaly or palpable masses EXTREMITIES No edema NEURO Awake, alert and oriented x 3, Normal gait and No involuntary motions. SKIN Skin color, texture, turgor normal, no suspicious rashes or lesions LABS: CEA: Pending ASSESSMENT/PLAN: 1. Malignant neoplasm of ascending colon (HCC) - ICD9: 153.6, ICD10: C18.2 pT3 N0 M0 low grade adenocarcinoma of the ascending colon. - ?No concerning findings on exam. - ?CEA pending-drawn this morning. - CT's as indicated. - ?Colonoscopy due in 5 years-Dr. Anguiano. - ?Follow up in 6 months with CEA-pending today's CEA. - ?Pt. aware to call office with any questions/concerns. The patient indicates understanding of these issues and agrees with the plan. Jose Henao CNP Referring Provider: JOSE HENAO ([facility]) [[id number]] Allergies As of Date: 07/31/2017 Noted Allergy Reaction SEASONAL ALLERGIES 06/19/2013 14 - Other: See Comments Comments: Stuffy nose Date Reviewed: 07/31/2017 Reviewed by: Jose (Egg Packer) Earlene - Fully Assessed Reason for Visit: Established Patient [175] Primary Visit Diagnosis:Malignant neoplasm of ascending colon (HCC) [C18.2] Follow-up and Disposition History Recorded Prescriptions as of 07/31/2017 Sig: ASPIRIN 325 MG TABLET Take 325 mg by mouth once santos* METOPROLOL SUCCINATE ER 50 MG* Take 50 mg by mouth once jah* IRON ORAL Take 1 tablet by mouth once d* HYDROXYZINE HCL 25 MG TABLET Take 25 mg by mouth every 8 h* ADVIL PM ORAL Take 1 tablet by mouth at bed* VALERIAN ROOT ORAL Take 2 tablets by mouth at be* GREEN TEA-HOODIA GORDONII ORAL Take 2 tablets by mouth once * GARLIC 1,000 MG CAPSULE Take 1 tablet by mouth once d* SUPER B COMPLEX ORAL Take 1 tablet by mouth once d* OMEGA-3 FATTY ACIDS-FISH OIL * Take 2 capsules by mouth once* OS-MARTHA ORAL Take 1 tablet by mouth once d* ONE DAILY ACTIVE ORAL Take 1 tablet by mouth once d* Problem List As Of Date 07/31/2017 Noted Resolved OTHER LUNG DISEASE NEC [J98.4] INVALID FOR* Colon cancer [C18.9] INVALID FOR* Personal history of colon cancer [Z85.038] INVALID FOR* Malignant neoplasm of ascending colon (HCC) [C1*INVALID FOR* Visit Notes: >> Miranda Alvarado JeraldTeetee ROJELIO Velásquez Mon Jul 31, 2017 8:16 AM Status: Signed Est pt, 6 month f/u. Had labs done this morning Miranda Alvarado ROJELIO Velásquez Encounter Status:Closed by JOSE HENAO CNP on 07/31/17 PROGRESS Observed: 07/31/2017 Status: COMPLETED Source: [place] 8:17 AM [facility] REPOSITORY HNO ID: [id number] Author: Jose Anna) Earlene Service: (none) Author Type: Nurse Practitioner Type: Progress Notes Filed: 07/31/2017 8:38 AM Note Text: Chief Complaint Patient presents with: Established Patient HPI: Christopher Williamson is a 66 year old male who presents here today for follow up colon cancer. 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 He was noted to have HASEEB. A CT of the A/P was obtained and patient was referred to Dr. Anguiano for colonoscopy. ?? The CT demonstrated what appeared to be a malignant mass just distal to the haptic flexure with no evidence metastatic disease. ?? Colonoscopy revealed circumferential tumor just distal to hepatic flexure. ?? Underwent colectomy 07/05/13: Final pathology: 7 cm adenocarcinoma with 30% mucinous differentiation invading through muscularis porpria into the subserosal adipose tissue and not to serosal surface. Low grade. No AL invasion. No perineural invasion. No tumor perforation. 34 LNs all negative. IHC for MSH2, MSH6, MLH-1 and PMS2 all positive. Ki76 positive; high. ?? Had Oncotype testing. Suggested potential benefit from chemotherapy, but he declined. ?? Colonoscopy done in August 2014. Repeat in 3 years-Annmarie. ? No complaints.?? Colonoscopy done 2017. Planning to retire next month. ?? Appetite:too good Energy level:not bad Denies fevers or recent illness. Resp:denies cough or sob Cardiac:denies chest pain/palpitations -I had a heart cath May.03 because I was having L arm pain-one artery was partially blocked but not enough to stent. GI:denies abd pain other than above, denies?n/v, moving bowels regularly :denies dysuria/hematuria Extrem:denies back/bone/joint pain Neuro:occ.?tingling to fingers/toes Skin:denies rashes/lesions Heme:denies bleeding The ROS is otherwise negative. Past medical history, appointments, medications, allergies reviewed. No changes. EXAM: BP 141/86 Pulse (!) 59 Temp 36.4 ?C (97.5 ?F) Wt 96.6 kg (213 lb) BMI 32.39 kg/m2 APPEARANCE Well appearing, alert, in no acute distress, well-hydrated, well nourished. HEART RRR with normal S1 and S2, no murmurs LUNG clear to auscultation LYMPH NODES No cervical lymphadenopathy, No supraclavicular lymphadenopathy and No axillary lymphadenopathy. ABDOMEN bowel sounds normoactive, no bruits, soft, non-tender, non-distended, without organomegaly or palpable masses EXTREMITIES No edema NEURO Awake, alert and oriented x 3, Normal gait and No involuntary motions. SKIN Skin color, texture, turgor normal, no suspicious rashes or lesions LABS: CEA: Pending ASSESSMENT/PLAN: 1. Malignant neoplasm of ascending colon (HCC) - ICD9: 153.6, ICD10: C18.2 pT3 N0 M0 low grade adenocarcinoma of the ascending colon. - ?No concerning findings on exam. - ?CEA pending-drawn this morning. - CT's as indicated. - ?Colonoscopy due in 5 years-Dr. Anguiano. - ?Follow up in 6 months with CEA-pending today's CEA. - ?Pt. aware to call office with any questions/concerns. The patient indicates understanding of these issues and agrees with the plan. Jose Henao CNP CEA Collected: 07/31/2017 Status: F Source: [place] 8:07 AM [facility] REPOSITORY TYPE CODE TESTS RESULT OUT OF RANGE REFERENCE UNITS LAB CEA 0.0-2.9 ng/mL High CEA 3.0 Result Comment: Test analyzed by the [employer] DxI method. Performed By: #### CEA #### [facility] [address], [place] [address] CNCO Observed: 07/02/2017 Status: COMPLETED Source: [place] 12:00 AM [facility] REPOSIT[facility] Letter Text NURSING PROG Observed: 06/23/2017 Status: COMPLETED Source: [place] 7:51 AM [facility] REPOSITORY HNO ID: [id number] Author: Isabella AlmonteRnTeetee Flores RN Service: (none) Author Type: Registered Nurse Type: Nursing Progress Note Filed: 06/23/2017 7:54 AM Note Text: Patient did not experience a fall prior to discharge. Patient did not experience a burn prior to discharge. Isabella Flores RN NURSING PROG Observed: 06/23/2017 Status: COMPLETED Source: [place] 7:29 AM [facility] REPOSITORY HNO ID: [id number] Author: Isabella Flores RN Service: (none) Author Type: Registered Nurse Type: Nursing Progress Note Filed: 06/23/2017 7:30 AM Note Text: Pt sitting up in bed tolerating snack and drink. at bedside. Abd soft and nondistended. Denies pain or nausea. Dr. Anguiano was by and spoke with both pt and . No complaints. Isabella Flores RN PT ED Observed: 06/23/2017 Status: COMPLETED Source: [place] 7:17 AM [facility] REPOSITORY HNO ID: [id number] Author: Isabella Flores RN Service: (none) Author Type: Registered Nurse Type: Patient Education Filed: 06/23/2017 7:17 AM Note Text: POST OP LEARNING RESPONSE INSTRUCTION PROVIDED TO: Patient and Spouse METHOD OF INSTRUCTION: Individual instruction Written instruction - handouts Verbal instruction PATIENT / FAMILY RESPONSE: Verbalizes understanding of: MEDICAL REGIMEN-Importance of following prescribed medical regimen POST-PROCEDURE INSTRUCTIONS-Correct actions to take to reduce post procedure complications WORSENING CONDITION-Signs and symptoms of a worsening condition that warrant a call to the physician FOLLOW-UP PLAN: Follow up phone call. Contact information given. SUPPLEMENTAL MATERIAL: Procedure discharge instructions REFERRAL (RECOMMENDATION): None Electronically Signed By: Isabella Flores RN In Department: AMBULATORY SURGERY NURSING PROG Observed: 06/23/2017 Status: COMPLETED Source: [place] 7:05 AM [facility] REPOSITORY HNO ID: [id number] Author: Mirtha AlmonteRnTeetee Huitron RN Service: Nursing Author Type: Registered Nurse Type: Nursing Progress Note Filed: 06/23/2017 7:05 AM Note Text: Preoperative order for IV Antibiotic Prophylaxis is N/A. Patient did not experience a fall within the Intraoperative procedural area. Patient did not experience a burn within the Intraoperative procedural area. Mirtha Huitron RN NURSING PROG Observed: 06/23/2017 Status: COMPLETED Source: [place] 6:38 AM [facility] REPOSITORY HNO ID: [id number] Author: Rylie Natarajan RN Service: (none) Author Type: Registered Nurse Type: Nursing Progress Note Filed: 06/23/2017 6:47 AM Note Text: Patient did not experience a fall within the Preoperative area. Patient did not experience a burn within the Preoperative area. [facility] PRE-OP NURSING HAND OFF NOTE SBAR Hand off given to Mirtha Huitron RN. Hand off was communicated verbally and at the patient's bedside and all questions were answered. DELMIS Piper RN PT ED Observed: 06/23/2017 Status: COMPLETED Source: [place] 6:27 AM [facility] HNO ID: [id number] Author: Rylie Natarajan RN Service: (none) Author Type: Registered Nurse Type: Patient Education Filed: 06/23/2017 6:27 AM Note Text: PRE OP LEARNING ASSESSMENT PROCEDURE/SURGERY: GI PROCEDURES: Colonoscopy READINESS TO LEARN COGNITIVE ABILITY: Alert and oriented MOTIVATION TO LEARN: Eager Interested FAMILY SUPPORT: High - Very involved in pt care PATIENT LEARNS BEST BY: Individual Instruction Written Instruction - Hand-outs Verbal Instruction Multiple Methods FACTORS AFFECTING LEARNING: None PHYSICAL LIMITATIONS AFFECTING LEARNING: None Electronically Signed By: Rylie Natarajan RN In Department: AMBULATORY SURGERY HISTORY PHYSICAL Observed: 06/23/2017 Status: COMPLETED Source: [place] 6:22 AM [facility] REPOSITORY HNO ID: [id number] Author: Christopher Anguiano Service: General Surgery Author Type: Physician Type: HANDP Filed: 06/23/2017 6:22 AM Note Text: ? HISTORY AND PHYSICAL ? Christopher Williamson 1950 ? REFERRING PHYSICIAN: Self ? CHIEF COMPLAINT: colon consult ? HPI: The patient is a 66 year old male referred for endoscopy. Christopher notes a personal history of colon cancer. ?Dr. Anguiano performed a laparoscopic extended right hemicolectomy on 07/05/2013. The pathology demonstrated invasive adenocarcinoma. The tumor's greatest dimension was 7.0 x 5.5 x 1.0cm. Surgical margins were free of disease. 34 out of 34 lymph nodes were negative for metastatic disease. Angiolymphatic invasion was not seen. Histologic features for microsatellite instability - Lymphocytic response: Tumor infiltrating lymphocytes: present. Crohn's like lymphoid response present. Dirty necrosis present. Mucinous differentiation present. Tumor heterogeneity not present IHC prognostic markers - Pum1pxc negative, Ki-67 positive, high, p53 negative. ? performed follow-up lower endoscopy on 09/09/14. ?The patient was found to have a patent anastomosis, diverticukosis, scar in mid sigmoid colon. ?Pathology demonstrated: benign colonic mucosa ? Patient is due for 3-year follow-up this year. He denies any change in bowel habits, weight changes, blood in stools, black tarry stools or abdominal pain. The patient notes no history of upper GI complaints. He denies any chest pain, shortness of breath or recent hospitalizations. ? ? ? PAST?MEDICAL?HISTORY PAST MEDICAL HISTORY Diagnosis Date - Colonic mass ? - Fatigue ? ? ? PAST?SURGICAL?HISTORY PAST SURGICAL HISTORY Procedure Laterality Date - COLONOS W/REM POLYP SNARE ? 07/04/13 ? prox transverse colon cancer - COLONOSCOPY ? 09/09/14 ? repeat in 3 yrs - LAPAROSCOPIC HEMICOLECTOMY ? 07/05/13 ? 34 nodes neg T3N0 - OTHER ? 2008 ? basal cell excision, side of nose, done in [place] ? ? ? CURRENT?MEDICATIONS ? Current Outpatient Prescriptions: aspirin 325 mg tablet Take 325 mg by mouth once daily. metoprolol succinate ER (TOPROL XL) 50 mg 24 hr tablet Take 50 mg by mouth once daily. FERROUS SULFATE (IRON ORAL) Take 1 tablet by mouth once daily. hydrOXYzine HCl 25 mg tablet Take 25 mg by mouth every 8 hours as needed. IBUPROFEN/DIPHENHYDRAMINE CIT (ADVIL PM ORAL) Take 1 tablet by mouth at bedtime as needed. VALERIAN ROOT ORAL Take 2 tablets by mouth at bedtime as needed. GREEN TEA-HOODIA GORDONII ORAL Take 2 tablets by mouth once daily. Garlic 1,000 mg cap Take 1 tablet by mouth once daily. VITAMIN B COMPLEX (SUPER B COMPLEX ORAL) Take 1 tablet by mouth once daily. [place]roe-3 Fatty Acids, FISH OIL, (FISH OIL) 360-1,200 mg cap Take 2 capsules by mouth once daily. CALCIUM CARBONATE (OS-MARTHA ORAL) Take 1 tablet by mouth once daily. MULTIVITAMIN WITH MINERALS (ONE DAILY ACTIVE ORAL) Take 1 tablet by mouth once daily. ? No current facility-administered medications for this visit. ? ALLERGIES: Seasonal Allergies ? PERSONAL HISTORY: SOCIAL?HISTORY Social History Marital status: Spouse name: Years of education: Number of children: ? Social History Main Topics Smoking status: Former Smoker Packs/day: 1.00 Years: 20.00 Types: Cigarettes Quit date: 01/19/1991 Smokeless status: Never Used Alcohol use: Yes Comment: occassional Drug use: No Sexual activity: Yes Partners with: Female control/protection: None ? ? FAMILY HISTORY: FAMILY?HISTORY FAMILY HISTORY Problem Relation Age of Onset - Cancer Sister ? ? ? colon ? ? REVIEW OF SYMPTOMS: The review of systems data was entered by the nurse and reviewed by me ? Nursing Notes: Melani Byrnes LPN 06/01/2017 8:32 AM Signed REVIEW OF SYSTEMS: General: The patient NOTES fatigue, denies weight loss, denies weight gain, NOTES feeling hot, and NOTES feelings of cold. Eyes: The patient denies glaucoma, denies eye injury/surgery, wears glasses or contacts. Ear/Nose/Throat: The patient NOTES allergies, denies hayfever, denies ear infections, and denies bloody noses. Cardiovascular: The patient denies chest pain, denies heart disease, denies high blood pressure,denies cardiac stent, denies prior heart attack, denies irregular heart beat, denies high cholesterol, denies poor circulation, denies heart failure, other cardiac issues, denies claudication, NOTES cold feet, denies peripheral arterial stent. Respiratory: The patient denies tuberculosis, NOTES pneumonia, denies frequent cough, denies pulmonary embolism, NOTES shortness of breath, and denies coughing up blood. Gastrointestinal: The patient denies difficulty swallowing, denies acid reflux, denies ulcers, denies vomiting, denies jaundice/hepatitis, denies gallbladder problems, denies black or tarry stools, denies hemorrhoids, NOTES bleeding from rectum, denies diverticulitis, denies constipation, denies diarrhea, denies loss of stool control, and denies hernias. Kidney/Bladder: The patient denies kidney stones, denies urine infections, and denies bloody urine. Skin: The patient NOTES a history of skin cancer, denies bleeding/changing moles, and denies a history of skin rash. Neurologic: The patient denies a history of epilepsy/convulsions, NOTES headaches, denies head/spinal injuries, and denies stroke/TIA. Psychiatric: The patient denies psychiatric medications, denies depression, and denies voices, denies substance abuse. Endocrine: The patient denies thyroid disorders, denies diabetes, and denies hormonal problems. Hematologic: The patient denies a history of bruising, denies bleeding, and denies anemia, denies blood clots. Infections: The patient NOTES a history of measles and mumps, denies rheumatic fever, and denies sexually transmitted diseases. Musculoskeletal: The patient denies back pain/injury, denies back problems, denies sciatica, denies knee/foot trouble, denies arthritis, or denies gout. ? ? When was patient's last Mammogram screening? N/A ? Last Colonoscopy: 2014 ? Melani Rodriguez PA-C ? ?? PHYSICAL EXAMINATION: ? General: The patient is 66 year old male, well nourished, well hydrated in no acute distress. The patient is oriented to time, place, and person. ? VITALS: Blood pressure 154/76, pulse 60, height 172.7 cm (5' 8), weight 94.8 kg (209 lb). Body mass index is 31.78 kg/(m2). ? HEENT: Normal cephalic, ataumatic, pupils are equally round, sclera are anicteric, mucous membranes are moist, oropharynx is clear. Neck has no masses, asymmetry or lymphadenopathy. Respiratory: Clear to auscultation and percussion. Normal respiratory excursion and pattern. ? Cardiac: Examination is regular rate and rhythm. ? Abdominal exam: Soft, nontender, with no palpable masses. No hepatosplenomegaly. No palpable hernias. ? Rectal exam: exam deferred ? Extremities: no clubbing, cyanosis or edema. No adenopathy. ? Other: ? LABORATORY VALUES: As Noted ? RADIOLOGIC STUDIES: As Noted ? ? Assessment IMPRESSION: encounter for surveillance colonoscopy, personal history of colon cancer ? PLAN: We will plan for surveillance colonoscopy. We discussed the risks and benefits of the planned endoscopy. I have informed the patient that complications can occur including failure to complete the endoscopy and perforation. The patient had the opportunity to ask questions concerning the planned endoscopy. My staff has also explained the procedure to the patient in understandable terms and has given the patient printed material concerning the procedure. The patient freely consents to surgery. ? I plan to use golytely bowel preparation for endoscopy ? Diagnoses: (Z85.038) Personal history of colon cancer (primary encounter diagnosis) ? This note will be forwarded to Dr. Mainor Childress MD. ?? Return to Clinic: The patient is instructed to follow-up with me 1 week post operatively. ? I spent 25 minutes in the visit, with more than 50% of the total qgkh-sf-ypcm time of the visit in counseling / coordination of care. ? ? Noe Rodriguez PA-C ALLERGIES ALLERGIES DATE TYPE / CODE NAME / CODE REACTION SEVERITY SOURCE 05/03/2018 Drug No Known Unknown [facility] Allergy/416 Allergies/I98129 [facility] 035132(SNOM 0388(RXNORM) Repository ED CT) 06/19/2013 Environ/420 SEASONAL OTHER: SEE C [facility] [id number](SNOM ALLERGIES [place] [facility]) Repository ENCOUNTERS ENCOUNTERS ADMIT/DISCHARGE ACCOUNT ADMITTING ENCOUNTER LOCATION SOURCE NUMBER CLASS 05/08/2018 [id number] [facility] ing:MTLAB Repository 05/03/2018/05/03/20 [id number] Ambulatory BMSBuilding:[place] [facility] Repository 02/01/2018/02/03/[id number] Repository 02/01/2018/02/02/[id number] Repository 07/31/2017/08/02/[id number] Repository 07/31/2017/08/01/[id number] Repository 06/29/2017 [id number] Ambulatory BMSBuilding:[place] [facility] Repository 06/23/2017/06/23/19 [id number] ANNMARIE Ambulatory [place] [address] [facility] [place] Repository PAYERS PAYERS ENCOUNTER GUARANTOR PAYER SUBSCRIBER SOURCE 05/08/2018 CHRISTOPHER Varela Primary MALCOLM S Sonya [id number] Insurance:ANTHEMPolic BENNINGERDOB: [facility] y Number: [id number] [id number] Repository 42399Dpp: (330) Date:4475-12-75DY [phone] () [id number] [place] [address] 75595JZ: 05/08/2018 Secondary NOT GIVENUNK Sonya Insurance:SELF PAY [facility] Number: Effective Repository Date:2018-05-08 05/03/2018 CHRISTOPHER Varela Primary MALCOLM S Sonya [id number] Insurance:ANTHEMPolic BENNINGERDOB: [facility] y Number: [id number], [place] [id number] Repository 48[address]Ifz: (330) Date:1616-45-93TG [phone] () [id number] [place] [address] 45485UI: 05/03/2018 Secondary NOT GIVENUNK Devon Insurance:SELF PAY [facility] Number: Effective Repository Date:2018-05-03 06/29/2017 CHRISTOPHER Varela Primary MALCOLM Wu Sonya [id number] Insurance:ANTHEMPolic BENNINGERDOB: [facility] y Number: [id number] [id number] Repository 484[address]Fjt: ([phone]) Date:7970-26-57CE [phone] () [id number], [place] [address]GG: 06/29/2017 Secondary NOT GIVENUNK Devon Insurance:SELF PAY [facility] Number: Effective Repository Date:2017-05-02
--- OUTSIDE RECORDS SUMMARY | 2018-06-24 17:47 | XMS RPT_ITS | Clinical Summary ---
:1950 Author Organization [facility] Address [address] [place] [address] Phone Care Team Providers Name Role Phone Laurie Morales RN Unavailable Unavailable Conditions or Problems Problem Name Problem Onset Status Entry Provider Comment Standard Annotate Code Date Date Description Body mass Z68.32 Active Luis S Body mass index index (BMI) (ICD-10-C 05/30 05/30 MD Faisal (BMI) 32.0-32.9, M) 32.0-32.9, adult adult Chest pain on [id number] Active Kimberley Varela Chest pain on exertion (SNOMED 05/30 05/30 [place], exertion CT) RN Hyperlipidemia [id number] Active Kimberley Varela Hyperlipidemia (SNOMED 05/30 05/30 [place], CT) RN Body mass Z68.31 Inactive Kimberley Varela Body mass index index (BMI) (ICD-10-C 05/30 05/30 [place], (BMI) 31.0-31.9, M) RN 31.0-31.9, adult adult Medications Medication Instructions Start Stop Generic Name [facility] Provider Date Date TOPROL XL 50 MG One tablet by / METOPROLOL [id number] Luis S [id number] mouth daily 03 SUCCINATE MD Faisal PLAVIX 75 MG 4 tabs today / CLOPIDOGREL [id number] Thomaston S TABS then 1 daily 03 BISULFATE MD Faisal TOPROL XL 25 MG One tablet by / METOPROLOL [id number] Thomaston S [id number] mouth daily 03 SUCCINATE MD Faisal ASPIRIN 325 MG One tablet by / ASPIRIN [id number] Kimberley M TABS mouth daily 02 DELMIS Dockery HYDROXYZINE HCL (Atarax) As / HYDROXYZINE HCL [id number] Thomaston S 25 MG TABS needed 03 MD Faisal VALERIAN ROOT as needed / VALERIAN [id number] Thomaston S 450 MG CAPS 03 MD Faisal GREEN Two tablets by / GREEN TEA-HOODIA [id number] Luis S TEA-HOODIA CAPS mouth daily 03 CAPS MD Faisal GARLIC TABS One tablet by / GARLIC-CALCIUM [id number] Luis S mouth daily 03 TABS MD Faisal VITAMIN B One tablet by / B COMPLEX [id number] Thomaston S COMPLEX TABS mouth daily 03 VITAMINS MD Faisal OMEGA 3 CPDR One tablet by / OMEGA-3 FATTY [id number] Luis S mouth daily ACIDS CPDR MD Faisal OS-MARTHA 500 + D One tablet by / CALCIUM Luis S 500-200 MG-UNIT mouth twice 03 CARBONATE-VITAMIN MD Faisal TABS daily D MULTIVITAMIN One tablet by / MULTIPLE 24091210349 Thomaston S ADULT TABS mouth daily 03 VITAMINS-MINERALS MD Faisal FERROUS SULFATE One tablet by / FERROUS SULFATE 23634125971 Luis S 325 (65 Fe) MG mouth daily MD Faisal TABS ASPIRIN EC 81 One tablet by / ASPIRIN [id number] Kimberley M MG TBEC mouth daily [facility] ASPIRIN EC 81 One tablet by ASPIRIN 81111902148 Luis S MG TBEC mouth daily MD Faisal G-XOTGAD-A-CYST One tablet by / ACETYLCYSTEINE [id number] Kimberley M EINE 600 MG mouth twice Kilmelita, RN CAPS daily K-AIIXAG-E-CYST One tablet by ACETYLCYSTEINE 60450560125 Thomaston S EINE 600 MG mouth twice MD Faisal CAPS daily FERROUS SULFATE One tablet by / FERROUS SULFATE [id number] Kimberley M 325 (65 Fe) MG mouth twice [facility], RN TABS daily Medications Administered No information available. 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 yes Dietary management education, guidance, and counseling [...] Serum or Plasma Clinical Lists Update: Preload CARDADISECHO 60 % Left ventricular Ejection fraction Plan of Care Type Date Detail Appointment 01:00 PM Luis Malone MD, [address], [address], [place], [address], Appointment 03:30 PM Selam Arciniega PA-C, [address], [address], [place], [address], Pending order MMM Pending order Follow Up Appt 3 months Pending order *Hepatic Function Panel Pending order *Lipid Profile CC PCP Pending order *BMP Pending order *CBC with Differential Pending order Left Heart Cath Procedures Code Procedure Name Date Entry Date F/U MMM MMM FUA 3 months Follow Up Appt 3 months 0667-1 *BMP 0788-1 *Hepatic Function Panel 83196-0 *Lipid Profile CC PCP 0184-1 *CBC with [...]
== END ==
PROVIDERS: Family Provider Family Medicine; PCP Family Medicine; Referring Provider Internal Medicine Cardiovascular Disease; Visit Provider Internal Medicine Cardiovascular Disease
DX: I25.10 Atherosclerotic heart disease of native coronary artery without angina pectoris (principal); E78.00 Pure hypercholesterolemia, unspecified
CPT/HCPCS: 36415; 80061; 80076

== ENCOUNTER 2018-10-28 09:36 | Emergency (ER) | payer BC, SELFPAY ==
[2018-05-03 13:34] VITALS: BMI 31.3
[2018-10-28 09:37] VITALS: BP 142/86; PULSE 90; RESP 18; TEMP 36.6; O2SAT 95; BMI 30.9
--- NOTE | 2018-10-28 09:48 | CT_ITS ---
STUDY: CT ABDOMEN AND PELVIS WITHOUT CONTRAST REASON FOR EXAM: Male, 67 years old. Left flank pain RADIATION DOSAGE (If Supplied By Facility): CTDIvol = ( 13.00 ) mGy, DLP = ( 766.54 ) mGycm TECHNIQUE: Transaxial images were obtained from the dome of the diaphragm to the symphysis pubis without oral contrast, and without intravenous contrast. Sagittal and coronal images were reconstructed. Individualized dose optimization techniques were used for this CT. COMPARISON: 06/18/2013 FINDINGS: Fibrotic scarring of both lung bases similar since the prior study with superimposed atelectasis. Persistent 5 mm noncalcified nodule in the subpleural right lower lobe. The visualized portions of the heart are within normal limits. Normal liver. Normal gallbladder and extrahepatic biliary system. Normal spleen. Normal pancreas. Normal bilateral adrenal glands. 5 mm calculus of the right inferior kidney identified on image 88. Mild left hydronephrosis with moderate perinephric stranding with hydroureter extending to the UVJ. There is a punctate (1-2 mm) calculus in the region of the left UVJ on axial image 154. 4 mm calculus of the posterior left mid kidney as seen on image 71. Normal visualized stomach. Normal small intestine. There are multiple colonic diverticula consistent with diverticulosis. The appendix is visualized and appears normal. There is diffuse atherosclerotic calcification of the abdominal aorta, without a demonstrated aneurysm. Normal inferior vena cava. Normal retroperitoneum. Normal urinary bladder. Normal abdominal wall. Multilevel degenerative changes of the lumbar spine with multiple levels of canal narrowing particularly at L3-L4 and L4-L5. CT/Abdomen/Pelvis without Cont IMPRESSION: 1. 1-2 mm left UVJ calculus with mild hydronephrosis/hydroureter and moderate perinephric stranding. 2. Additional bilateral renal calculi. 3. Stable 5 mm nodule in the right lung base. Fibrotic scarring in the bilateral lower lobes with superimposed atelectasis. Electronically Signed: Gil Herndon MD at 10:45 EDT , Service support ,
[2018-10-28] MEDS: 0.9% Normal Saline 1,000 ML 250 ML IV (09:53)
[2018-10-28] MEDS: Ondansetron 4 MG/2 ML Vial IV (09:54)
[2018-10-28] MEDS: Ketorolac 30 MG/ML Syringe 15 MG IV (09:54)
[2018-10-28 10:04] LABS: Absolute Lymphocyte Count 1.06 X10^3/ul (0.83-4.51); Absolute Neutrophil Count 14.8 X10^3/uL (2.0-7.7); Basophil# 0.02 X10^3/uL; Basophil% 0.1 % (0-1); Differential Indicated SCAN CRITERIA MET; Eosinophil# 0.01 X10^3/uL; Eosinophils% 0.1 % (0-5); Hematocrit 49.8 % (40-54); Hemoglobin 17.4 g/dl (13.0-16.5); Lymphocyte # 1.06 X10^3/ul (4.0); Mean Corp Hgb Conc 34.9 g/gl (32-36); Mean Corpuscular Hgb 32.6 pg (27.0-32.0); Mean Corpuscular Volume 93.4 fL (80-94); Mean Platelet Vol. 9.3 fl (6.2-12.0); Monocyte# 1.89 X10^3/uL; Monocyte% 10.6 % (0-10); Neutrophil # 14.77 X10^3/uL (2.7-7.7); Neutrophil % 82.9 % (47-70); POSITIVE COUNT NO; POSITIVE DIFFERENTIAL YES; POSITIVE MORPHOLOGY NO; Platelet Count 213 K/mm3 (150-450); RBC Distribution Width SD 43.6 fl (35.1-43.9); Red Blood Count 5.33 M/mm3 (4.6-6.2); White Blood Count 17.8 K/mm3 (4.4-11.0)
--- NOTE | 2018-10-28 10:06 | ED.VIS.GEN ---
History of Present Illness Chief Complaint: Male Pain/Injury Informant: Patient Onset: Today Context: Sudden Onset Timing: Continuous, Waxes and wanes Quality: Colicky waxing and waning Location: Left flank, left lower quadrant into groin Current Severity: Moderate Maximum Severity: Severe - Nothing unable to find position of comfort Relieved by: Nothing Associated Symptoms: Urgency Narrative: Patient is an elderly male with no prior history of renal ureterolithiasis. He presents with abrupt onset of left flank pain radiating to the left groin and testicle that is not made worse or better by anything. He does report urgency. He denies fever, chills night sweats. There is no history of trauma. Triage nurse documented left testicular swelling. Prior similar symptoms: No Recent Illness/Hospitalization: No - Past Medical History (1) Atherosclerotic heart disease of [place] coronary artery without angina pectoris Status: Chronic Comment: non-obstructive CAD of [place] (2) Hyperlipidemia Status: Chronic Past Medical History - Allergies and Home Meds Allergies/Adverse Reactions: Allergies No Known Allergies Allergy (Verified 10/28/18 09:39) Primary Care Physician: Mainor Childress MD [Primary Care Provider] - Prior records reviewed: Yes Lives: Spouse/ Significant Other Smoking Status: Former smoker Alcohol: Rare Review of Systems General: Denies: Chills, Fever, Sweats Eyes: Denies: Visual changes - bilaterally, Diplopia ENT: Denies: Rhinorrhea, Sore throat Cardiovascular: Denies: Chest pain, Palpitations Respiratory: Denies: Dyspnea, Cough, Dyspnea on exertion Gastrointestinal: Reports: Abdominal pain, Nausea. Denies: Vomiting, Diarrhea, Constipation, Melena, Hematochezia, -, - Genitourinary: Reports: - - He does report urgency. Denies: Dysuria, Hematuria, Frequency Musculoskeletal: Reports: Back pain - Specifically left flank. Denies: Myalgias, Arthralgias, Neck pain, Swelling, Extremity Pain, -, - Skin: Denies: Rash, Wounds Neurological: Denies: Headache, Weakness, Numbness Psych: Denies: Depression Hematologic: Denies: Easy bruising, Easy bleeding Allergy: Denies: Uticaria, Swelling of the mouth Physical Exam Vital Signs/Narrative: Vital Signs Temp Pulse Resp BP Pulse Ox 10/28/18 09:37 97.9 F 90 18 142/86 H 95 Inital Vital Signs reviewed: Yes General: Well nourished, Well developed, No Acute Distress Head: Normocephalic, Atraumatic Eyes: Perrl, EOMI. Negative for: Pale conjunctiva, Scleral icterus, - ENT: Moist mucous membranes, No rhinorrhea Neck: Supple, Nontender, No lymphadenopathy Cardiovascular: Regular rate, Regular rhythm, No murmurs, Normal S1, Normal S2 Respiratory: No distress, CTA bilaterally, Chest nontender Abdomen: Soft, Nondistended, Normal bowel sounds, No masses, Tender - Tenderness over the left kidney. Negative for: Guarding, Rebound tenderness, Hepatomegaly, Splenomegaly, Mass, Pulsatile mass Rectal: Deferred : - - Testicles descended bilateral. There is no epididymal tenderness. There is no obvious swelling. There is no evidence of inguinal hernia. There is no inguinal lymphadenopathy. Back: Nontender, Normal Inspection, CVA tenderness - On the left Extremities: Nontender, No edema Skin: Normal color, No rash, No Trauma. Negative for: Cyanosis, Diaphoresis, Jaundice Neurological: Alert, Oriented x3, Cranial nerves II-XII grossly intact, Normal Strength, Normal Sensation Psychological: Normal affect, Normal Mood Diagnostic/Tx/Re-eval Impressions Abdomen/Pelvis CT 10/28/18 09:48 IMPRESSION: 1. 1-2 mm left UVJ calculus with mild hydronephrosis/hydroureter and moderate perinephric stranding. 2. Additional bilateral renal calculi. 3. Stable 5 mm nodule in the right lung base. Fibrotic scarring in the bilateral lower lobes with superimposed atelectasis. Electronically Signed: Gil Herndon MD at 10:45 EDT , Service support , 10/28/18 09:48 Abdomen/Pelvis without Cont [CT] Stat Laboratory Results 10/28/18 10/28/18 10/28/18 09:50 09:50 11:10 WBC 17.8 H RBC 5.33 Hgb 17.4 H Hct 49.8 MCV 93.4 MCH 32.6 H MCHC 34.9 RDW 13.0 RDW Differential 43.6 Plt Count 213 MPV 9.3 Immature Gran % (Auto) 0.300 Neut % (Auto) 82.9 H Lymph % (Auto) 6.0 L [place] % (Auto) 10.6 H Eos % (Auto) 0.1 Baso % (Auto) 0.1 Absolute Neuts (auto) 14.8 H Absolute Lymphs (auto) 1.06 Total Counted Not Reportable Sodium 139 Potassium 4.2 Chloride 105 Carbon Dioxide 27.0 Anion Gap 7 BUN 26 H Creatinine 2.10 H Estim Creat Clear Calc 33.02 Est GFR (MDRD) Af Amer 41 L Est GFR (MDRD) Non-Af 34 L BUN/Creatinine Ratio 12.4 Glucose 149 H Calcium 10.0 Urine Color Yellow Urine Clarity Sl. Cloudy Urine pH 5.0 Ur Specific [place] 1.020 Urine Protein 30 H Urine Glucose (UA) Normal Urine Ketones Negative Urine Occult Blood 10 H Urine Nitrite Negative Urine Bilirubin Negative Urine Urobilinogen Normal Ur Leukocyte Esterase 25 H Urine RBC 0 SEEN Urine WBC 0-5 SEEN Ur Squamous Epith Cells 0 SEEN Urine Bacteria RARE Urine Mucus 0 SEEN - Medical Decision Making Patient's history and physical exam is suggestive of renal calculi. CBC was obtained to assess white count, UA to assess for blood and rule out infection. CT of the abdomen pelvis was obtained to assess for ureterolithiasis and determine size and location. Creatinine elevated at 2.10. 18 months ago creatinine was normal. CT does reveal a left UVJ stone with hydroureter and hydronephrosis. UA reveals no evidence of infection. Patient was discharged home with appropriate home-going instructions to follow-up with urology. He was informed to not take ibuprofen or Aleve since he has acute renal failure. ED Disposition - Plan for ED Patient: Disposition: Home or Assisted Living Diagnosis: Hydronephrosis concurrent with and due to calculi of kidney and ureter, Chronic renal failure, stage 2 (mild) Instructions: ED Stone Renal W Colic, ED Insufficiency Renal Prescriptions: Oxycodone HCl/Acetaminophen [Percocet 5/325] 1 tablet PO Q6H PRN PRN 5 Days #20 tablet PRN Reason: Pain Referrals: Mainor Childress MD [Primary Care Provider] - 1 Week Brody Granger MD [STAFF PHYSICIAN] - 5-7 Days Additional Instructions: Your prescription was electronically transmitted to [facility] pharmacy located on [facility].
[2018-10-28 10:10] LABS: Anion Gap 7 (5-15); BUN 26 mg/dL (7-18); BUN/Creat Ratio 12.4 RATIO (10-20); Chloride 105 mmol/L (98-107); EST Glomerular Filtration Rate 34 mL/min (>60); Est Glom Filt Rate - Afr Amer 41 mL/min (>60); Estimated Creatinine Clearance 33.02 ml/min; Glucose 149 mg/dL (74-106); Potassium 4.2 mmol/L (3.5-5.1); Sodium Level 139 mmol/L (136-145)
--- NOTE | 2018-10-28 10:11 | ED.DCSUM_ITS ---
History of Present Illness Chief Complaint: Male Pain/Injury Informant: Patient Onset: Today Context: Sudden Onset Timing: Continuous, Waxes and wanes Quality: Colicky waxing and waning Location: Left flank, left lower quadrant into groin Current Severity: Moderate Maximum Severity: Severe - Nothing unable to find position of comfort Relieved by: Nothing Associated Symptoms: Urgency Narrative: Patient is an elderly male with no prior history of renal ureterolithiasis. He presents with abrupt onset of left flank pain radiating to the left groin and testicle that is not made worse or better by anything. He does report urgency. He denies fever, chills night sweats. There is no history of trauma. Triage nurse documented left testicular swelling. Prior similar symptoms: No Recent Illness/Hospitalization: No - Past Medical History (1) Atherosclerotic heart disease of [place] coronary artery without angina pectoris Status: Chronic Comment: non-obstructive CAD of [place] (2) Hyperlipidemia Status: Chronic Past Medical History - Allergies and Home Meds Allergies/Adverse Reactions: Allergies No Known Allergies Allergy (Verified 10/28/18 09:39) Primary Care Physician: Mainor Childress MD [Primary Care Provider] - Prior records reviewed: Yes Lives: Spouse/ Significant Other Smoking Status: Former smoker Alcohol: Rare Review of Systems General: Denies: Chills, Fever, Sweats Eyes: Denies: Visual changes - bilaterally, Diplopia ENT: Denies: Rhinorrhea, Sore throat Cardiovascular: Denies: Chest pain, Palpitations Respiratory: Denies: Dyspnea, Cough, Dyspnea on exertion Gastrointestinal: Reports: Abdominal pain, Nausea. Denies: Vomiting, Diarrhea, Constipation, Melena, Hematochezia, -, - Genitourinary: Reports: - - He does report urgency. Denies: Dysuria, Hematuria, Frequency Musculoskeletal: Reports: Back pain - Specifically left flank. Denies: Myalgi as, Arthralgias, Neck pain, Swelling, Extremity Pain, -, - Skin: Denies: Rash, Wounds Neurological: Denies: Headache, Weakness, Numbness Psych: Denies: Depression Hematologic: Denies: Easy bruising, Easy bleeding Allergy: Denies: Uticaria, Swelling of the mouth Physical Exam Vital Signs/Narrative: Vital Signs Temp Pulse Resp BP Pulse Ox 10/28/18 09:37 97.9 F 90 18 142/86 H 95 Inital Vital Signs reviewed: Yes General: Well nourished, Well developed, No Acute Distress Head: Normocephalic, Atraumatic Eyes: Perrl, EOMI. Negative for: Pale conjunctiva, Scleral icterus, - ENT: Moist mucous membranes, No rhinorrhea Neck: Supple, Nontender, No lymphadenopathy Cardiovascular: Regular rate, Regular rhythm, No murmurs, Normal S1, Normal S2 Respiratory: No distress, CTA bilaterally, Chest nontender Abdomen: Soft, Nondistended, Normal bowel sounds, No masses, Tender - Tenderness over the left kidney. Negative for: Guarding, Rebound tenderness, Hepatomegaly, Splenomegaly, Mass, Pulsatile mass Rectal: Deferred : - - Testicles descended bilateral. There is no epididymal tenderness. There is no obvious swelling. There is no evidence of inguinal hernia. There is no inguinal lymphadenopathy. Back: Nontender, Normal Inspection, CVA tenderness - On the left Extremities: Nontender, No edema Skin: Normal color, No rash, No Trauma. Negative for: Cyanosis, Diaphoresis, Jaundice Neurological: Alert, Oriented x3, Cranial nerves II-XII grossly intact, Normal Strength, Normal Sensation Psychological: Normal affect, Normal Mood Diagnostic/Tx/Re-eval Impressions Abdomen/Pelvis CT 10/28/18 09:48 IMPRESSION: 1. 1-2 mm left UVJ calculus with mild hydronephrosis/hydroureter and moderate perinephric stranding. 2. Additional bilateral renal calculi. 3. Stable 5 mm nodule in the right lung base. Fibrotic scarring in the bilateral lower lobes with superimposed atelectasis. Electronically Signed: Gil Herndon MD at 10:45 EDT , Service support , 10/28/18 09:48 Abdomen/Pelvis without Cont [CT] Stat Laboratory Results 10/28/18 10/28/18 10/28/18 09:50 09:50 11:10 WBC 17.8 H RBC 5.33 Hgb 17.4 H Hct 49.8 MCV 93.4 MCH 32.6 H MCHC 34.9 RDW 13.0 RDW Differential 43.6 Plt Count 213 MPV 9.3 Immature Gran % (Auto) 0.300 Neut % (Auto) 82.9 H Lymph % (Auto) 6.0 L [place] % (Auto) 10.6 H Eos % (Auto) 0.1 Baso % (Auto) 0.1 Absolute Neuts (auto) 14.8 H Absolute Lymphs (auto) 1.06 Total Counted Not Reportable Sodium 139 Potassium 4.2 Chloride 105 Carbon Dioxide 27.0 Anion Gap 7 BUN 26 H Creatinine 2.10 H Estim Creat Clear Calc 33.02 Est GFR (MDRD) Af Amer 41 L Est GFR (MDRD) Non-Af 34 L BUN/Creatinine Ratio 12.4 Glucose 149 H Calcium 10.0 Urine Color Yellow Urine Clarity Sl. Cloudy Urine pH 5.0 Ur Specific [place] 1.020 Urine Protein 30 H Urine Glucose (UA) Normal Urine Ketones Negative Urine Occult Blood 10 H Urine Nitrite Negative Urine Bilirubin Negative Urine Urobilinogen Normal Ur Leukocyte Esterase 25 H Urine RBC 0 SEEN Urine WBC 0-5 SEEN Ur Squamous Epith Cells 0 SEEN Urine Bacteria RARE Urine Mucus 0 SEEN - Medical Decision Making Patient's history and physical exam is suggestive of renal calculi. CBC was obtained to assess white count, UA to assess for blood and rule out infection. CT of the abdomen pelvis was obtained to assess for ureterolithiasis and determine size and location. Creatinine elevated at 2.10. 18 months ago creatinine was normal. CT does reveal a left UVJ stone with hydroureter and hydronephrosis. UA reveals no evidence of infection. Patient was discharged home with appropriate home-going instructions to follow-up with urology. He was informed to not take ibuprofen or Aleve since he has acute renal failure. ED Disposition - Plan for ED Patient: Disposition: Home or Assisted Living Diagnosis: Hydronephrosis concurrent with and due to calculi of kidney and ureter, Chronic renal failure, stage 2 (mild) Instructions: ED Stone Renal W Colic, ED Insufficiency Renal Prescriptions: Oxycodone HCl/Acetaminophen [Percocet 5/325] 1 tablet PO Q6H PRN PRN 5 Days #20 tablet PRN Reason: Pain Referrals: Mainor Childress MD [Primary Care Provider] - 1 Week Brody Granger MD [STAFF PHYSICIAN] - 5-7 Days Additional Instructions: Your prescription was electronically transmitted to [facility] pharmacy located on [facility].
[2018-10-28 11:18] LABS: Mucous, Urine 0 SEEN /hpf (<or=2+); Red Blood Cells-Urine 0 SEEN /hpf (0-5); Squamous Epithelial Cells - UA 0 SEEN /hpf (0-5)
[2018-10-28 11:19] LABS: Color, Urine Yellow (Yellow); Glucose, Dipstick Normal (Normal); Ketone-Dipstick Negative (Negative); Leukocyte Esterase-Dipstick 25 /ul (Negative); Nitrite-Dipstick Negative (Negative); Occult Blood-Urine 10 /ul (Negative); Protein-Dipstick 30 mg/dl (Negative); Urine Bilirubin Dipstick Negative (Negative); Urine Clarity Sl. Cloudy (Clear); Urine Urobilinogen Normal (Normal)
[2018-10-28 11:27] LABS: Bacteria RARE /hpf (None Seen); White Blood Cells 0-5 SEEN /hpf (0-5)
[2018-10-28 11:46] VITALS: BP 163/86; PULSE 73; RESP 18; O2SAT 96
[2018-10-29 15:22] LABS: Pathologist Review Reviewed
== END 2018-10-28 11:48 | disposition home or self-care (01) ==
PROVIDERS: Emergency Provider Emergency Medicine; Family Provider Family Medicine; PCP Family Medicine
DX: N13.2 Hydronephrosis with renal and ureteral calculous obstruction (principal); N18.2 Chronic kidney disease, stage 2 (mild); R91.1 Solitary pulmonary nodule; E78.5 Hyperlipidemia, unspecified; I25.10 Atherosclerotic heart disease of native coronary artery without angina pectoris; Z87.891 Personal history of nicotine dependence
CPT/HCPCS: 74176; 80048; 81001; 85025; 96361; 96374; 96375; 99283; J7030; A4216; J2405

== ENCOUNTER → 2018-11-01 | Outpatient (CLI) | payer BC, SELFPAY ==
[2018-10-28 09:37] VITALS: BMI 30.9
[2018-11-01 14:54] LABS: Microalbumin,Random Urine 63.1 mg/L (NO RANGE EST.); Microalbumin:Creatinine Ratio 42.9 mg/g CRE (<30 mg/g CRE)
== END | disposition home or self-care (01) ==
LOC: LABSPEC 14:22
PROVIDERS: Family Provider Family Medicine; PCP Family Medicine; Referring Provider Family Medicine; Visit Provider Family Medicine
DX: N28.9 Disorder of kidney and ureter, unspecified (principal)
CPT/HCPCS: 82043; 82570

== ENCOUNTER → 2018-11-06 11:26 | Outpatient (CLI) | payer BC, SELFPAY ==
[2018-10-28 09:37] VITALS: BMI 30.9
[2018-11-06 13:15] LABS: Creatinine, Serum 1.19 mg/dL (0.70-1.30); EST Glomerular Filtration Rate 65 mL/min (>60); Est Glom Filt Rate - Afr Amer 78 mL/min (>60)
== END ==
PROVIDERS: Family Provider Family Medicine; PCP Family Medicine; Referring Provider Nurse Practitioner Adult Health; Visit Provider Nurse Practitioner Adult Health
DX: N20.1 Calculus of ureter (principal)
CPT/HCPCS: 36415; 82565

== ENCOUNTER → 2019-07-11 09:24 | Outpatient (CLI) | payer BC, SELFPAY ==
[2019-07-03 08:36] VITALS: BMI 31.7
[2019-07-11 09:33] LABS: Bacteria 0 SEEN /hpf (None Seen); Mucous, Urine 0 SEEN /hpf (<or=2+); Red Blood Cells-Urine 0 SEEN /hpf (0-5); White Blood Cells 0 SEEN /hpf (0-5)
[2019-07-11 10:09] LABS: Basophil# 0.07 X10^3/uL; Basophil% 1.2 % (0-1); Eosinophil# 0.18 X10^3/uL; Eosinophils% 3.1 % (0-5); Hematocrit 51.9 % (40-54); Hemoglobin 17.3 g/dL (13.0-16.5); Mean Corp Hgb Conc 33.3 g/dL (32-36); Mean Corpuscular Hgb 32.3 pg (27.0-32.0); Mean Corpuscular Volume 96.8 fL (80-94); Mean Platelet Vol. 9.2 fl (6.2-12.0); Monocyte# 0.85 X10^3/uL; Monocyte% 14.9 % (0-10); NRBC Flagged by Analyzer 0 % (0-5); Neutrophil % 52.5 % (47-70); Platelet Count 224 K/mm3 (150-450); RBC Distribution Width CV 12.8 % (11.6-14.6); RBC Distribution Width SD 45.6 fl (35.1-43.9); Red Blood Count 5.36 M/mm3 (4.6-6.2); White Blood Count 5.7 K/mm3 (4.4-11.0)
[2019-07-11 10:09] LABS: Color, Urine Yellow (Yellow); Glucose, Dipstick Normal (Normal); Ketone-Dipstick Negative (Negative); Leukocyte Esterase-Dipstick Negative /ul (Negative); Nitrite-Dipstick Negative (Negative); Occult Blood-Urine Negative /ul (Negative); Protein-Dipstick 15 mg/dl (Negative); Urine Bilirubin Dipstick Negative (Negative); Urine Clarity Clear (Clear); Urine Urobilinogen Normal (Normal)
[2019-07-11 10:23] LABS: Hemoglobin A1c 6.6 % (4.2-6.3)
[2019-07-11 10:24] LABS: Squamous Epithelial Cells - UA 0-5 SEEN /hpf (0-5)
[2019-07-11 10:38] LABS: Microalbumin:Creatinine Ratio 78.9 mg/g CRE (<30 mg/g CRE)
[2019-07-11 10:39] LABS: AST(SGOT) 32 U/L (15-37); Alanine Aminotransfer ALT/SGPT 66 U/L (16-61); Albumin, Serum 3.9 g/dL (3.2-5.0); Alkaline Phosphatase 66 U/L (45-117); Anion Gap 2 (5-15); BUN 24 mg/dL (7-18); BUN/Creat Ratio 18.6 RATIO (10-20); Calcium,Total 10.4 mg/dL (8.5-10.1); Chloride 107 mmol/L (98-107); Cholesterol 232 mg/dL (200); Creatinine, Serum 1.29 mg/dL (0.70-1.30); EST Glomerular Filtration Rate 59 mL/min (>60); Est Glom Filt Rate - Afr Amer 71 mL/min (>60); Ferritin 386 ng/mL (26-388); Globulin 4.1 g/dL (2.2-4.2); Glucose 118 mg/dL (74-106); High Density Lipoprotein 46 mg/dL; PSA,Total - Annual Screen 0.92 ng/mL (0.00-4.00); Potassium 4.6 mmol/L (3.5-5.1); Sodium Level 142 mmol/L (136-145); Triglycerides 238 mg/dL; Very Low Density Lipoprotein 48 mg/dL (5-40)
== END ==
PROVIDERS: PCP Family Medicine; Referring Provider Family Medicine; Visit Provider Family Medicine
DX: Z00.00 Encounter for general adult medical examination without abnormal findings (principal); E78.5 Hyperlipidemia, unspecified; D50.0 Iron deficiency anemia secondary to blood loss (chronic); R80.9 Proteinuria, unspecified; R82.90 Unspecified abnormal findings in urine
CPT/HCPCS: 36415; 80053; 80061; 81001; 82043; 82570; 82728; 83036; 84153; 85025; 87086; G0103

== ENCOUNTER → 2019-07-29 06:32 | Outpatient (CLI) | payer BC, SELFPAY ==
[2019-07-03 08:36] VITALS: BMI 31.7
--- NOTE | 2019-07-29 17:19 | STRESSREP ---
Stress Test Report Exercise myocardial perfusion stress test. 68-year-old man with a history of mild coronary artery disease with 50 to 60% ramus intermedius stenosis. Resting EKG. Resting EKG demonstrates normal sinus rhythm with a rate of 62 bpm normal intervals are noted resting blood pressures 140/88 mmHg. The patient exercised according to regular Brandon protocol for total duration of 9 minutes and 43 seconds. Patient completed 43 seconds into stage IV of the Brandon protocol. The maximum heart rate attained was 160 bpm which was 105% of maximum predicted heart rate the maximum workload attained was 11.2 metabolic equivalents. The patient maintained sinus rhythm throughout the recording with one episode of 5 beat wide complex rhythm which appeared to be aberrancy. The resting blood pressure was 140/88 with a peak blood pressure 198/90 mmHg. No clinical angina was noted the test was terminated due to the target heart rate being achieved. Myocardial perfusion protocol. 11.9 mCi of technetium 99m sestamibi was injected at rest. The patient exercised according to regular Brandon protocol for 9 minutes and 43 seconds. At peak exercise 35.1 mCi of technetium 99m sestamibi was injected stress images were obtained stress and rest images were reconstructed and compared in the short axis vertical long and horizontal long axis. Gated images were also obtained. Perfusion SPECT analysis: Review of the stress images demonstrate normal uptake of tracer noted in all areas of the myocardium the resting images similarly demonstrate normal uptake of tracer noted in all areas of the myocardium. No reversibility is noted suggest ischemia no previous infarct is noted. Gated SPECT analysis: The gated ejection fraction is noted to be 70%. Conclusion: Normal exercise myocardial perfusion stress test at a high workload. Preserved ejection fraction. Excellent functional capacity.
== END ==
PROVIDERS: PCP Family Medicine; Referring Provider Internal Medicine Cardiovascular Disease; Visit Provider Internal Medicine Cardiovascular Disease
DX: R07.9 Chest pain, unspecified (principal)
CPT/HCPCS: 78452; 93017; A9500; A4216

== ENCOUNTER → 2020-01-06 08:33 | Outpatient (CLI) | payer BC, SELFPAY ==
[2019-07-03 08:36] VITALS: BMI 31.7
[2020-01-06 12:54] LABS: Absolute Lymphocyte Count 1.38 X10^3/uL (0.83-4.51); Absolute Neutrophil Count 2.3 X10^3/uL (2.0-7.7); Basophil# 0.07 X10^3/uL; Basophil% 1.5 % (0-1); Eosinophil# 0.29 X10^3/uL; Eosinophils% 6.1 % (0-5); Hematocrit 49.6 % (40-54); Hemoglobin 16.4 g/dL (13.0-16.5); Lymphocyte # 1.38 X10^3/ul (4.0); Lymphocyte % 29.2 % (19-41); Mean Corp Hgb Conc 33.1 g/dL (32-36); Mean Corpuscular Hgb 32.9 pg (27.0-32.0); Mean Corpuscular Volume 99.4 fL (80-94); Mean Platelet Vol. 9.9 fl (6.2-12.0); Monocyte# 0.67 X10^3/uL; Monocyte% 14.2 % (0-10); NRBC Flagged by Analyzer 0 % (0-5); Neutrophil % 48.8 % (47-70); Platelet Count 227 K/mm3 (150-450); RBC Distribution Width CV 12.4 % (11.6-14.6); RBC Distribution Width SD 45.1 fl (35.1-43.9); Red Blood Count 4.99 M/mm3 (4.6-6.2); White Blood Count 4.7 K/mm3 (4.4-11.0)
[2020-01-06 13:12] LABS: AST(SGOT) 25 U/L (15-37); Alanine Aminotransfer ALT/SGPT 44 U/L (16-61); Albumin, Serum 3.9 g/dL (3.2-5.0); Alkaline Phosphatase 57 U/L (45-117); Anion Gap 5 (5-15); BUN 24 mg/dL (7-18); BUN/Creat Ratio 20.9 RATIO (10-20); Calcium,Total 10.5 mg/dL (8.5-10.1); Chloride 107 mmol/L (98-107); Cholesterol 208 mg/dL (200); Creatinine, Serum 1.15 mg/dL (0.70-1.30); EST Glomerular Filtration Rate 67 mL/min (>60); Est Glom Filt Rate - Afr Amer 81 mL/min (>60); Globulin 3.9 g/dL (2.2-4.2); Glucose 103 mg/dL (74-106); High Density Lipoprotein 45 mg/dL; Potassium 4.7 mmol/L (3.5-5.1); Protein, Total 7.8 g/dL (6.4-8.2); Sodium Level 142 mmol/L (136-145); Triglycerides 198 mg/dL; Very Low Density Lipoprotein 40 mg/dL (5-40)
[2020-01-06 13:16] LABS: Hemoglobin A1c 5.9 % (3.8-5.6)
== END ==
PROVIDERS: PCP Family Medicine; Visit Provider Family Medicine
DX: R73.03 Prediabetes (principal)
CPT/HCPCS: 36415; 80053; 80061; 83036; 85025

== ENCOUNTER → 2020-04-01 09:00 | Outpatient (CLI) | payer BC, SELFPAY ==
[2019-07-03 08:36] VITALS: BMI 31.7
[2020-04-01 10:07] LABS: Hematocrit 49.2 % (40-54); Hemoglobin 16.1 g/dL (13.0-16.5); Mean Corp Hgb Conc 32.7 g/dL (32-36); Mean Corpuscular Hgb 31.9 pg (27.0-32.0); Mean Corpuscular Volume 97.6 fL (80-94); Mean Platelet Vol. 9.5 fl (6.2-12.0); Platelet Count 223 K/mm3 (150-450); RBC Distribution Width CV 12.5 % (11.6-14.6); RBC Distribution Width SD 45.1 fl (35.1-43.9); Red Blood Count 5.04 M/mm3 (4.6-6.2); White Blood Count 7.8 K/mm3 (4.4-11.0)
[2020-04-01 10:50] LABS: Cholesterol 191 mg/dL (200); High Density Lipoprotein 53 mg/dL; Triglycerides 198 mg/dL; Very Low Density Lipoprotein 40 mg/dL (5-40)
== END ==
PROVIDERS: PCP Family Medicine; Referring Provider Family Medicine; Visit Provider Family Medicine
DX: E88.81 Metabolic syndrome and other insulin resistance (principal); I25.10 Atherosclerotic heart disease of native coronary artery without angina pectoris; D72.821 Monocytosis (symptomatic)
CPT/HCPCS: 36415; 80061; 83036; 85027

== ENCOUNTER → 2020-09-01 12:06 | Outpatient (CLI) | payer OTHER, SELFPAY ==
[2020-07-07 09:15] VITALS: BMI 30.1
[2020-09-01 15:24] LABS: Erythrocyte Sedimentation Rate 15 mm/hr (0-20)
[2020-09-01 15:26] LABS: Hematocrit 49.4 % (40-54); Hemoglobin 16.1 g/dL (13.0-16.5); Mean Corp Hgb Conc 32.6 g/dL (32-36); Mean Corpuscular Hgb 32.3 pg (27.0-32.0); Mean Corpuscular Volume 99.2 fL (80-94); Mean Platelet Vol. 9.8 fl (6.2-12.0); Platelet Count 262 K/mm3 (150-450); RBC Distribution Width CV 12.5 % (11.6-14.6); RBC Distribution Width SD 46.1 fl (35.1-43.9); Red Blood Count 4.98 M/mm3 (4.6-6.2); White Blood Count 6.6 K/mm3 (4.4-11.0)
[2020-09-01 15:39] LABS: ALB/GLOB Ratio 0.8 RATIO (0.9-2.4); AST(SGOT) 20 U/L (15-37); Alanine Aminotransfer ALT/SGPT 37 U/L (16-61); Albumin, Serum 3.7 g/dL (3.2-5.0); Alkaline Phosphatase 77 U/L (45-117); Anion Gap 4 (5-15); BUN 17 mg/dL (7-18); BUN/Creat Ratio 13.9 RATIO (10-20); Calcium,Total 10.4 mg/dL (8.5-10.1); Chloride 102 mmol/L (98-107); Creatinine, Serum 1.22 mg/dL (0.70-1.30); EST Glomerular Filtration Rate 63 mL/min (>60); Est Glom Filt Rate - Afr Amer 76 mL/min (>60); Globulin 4.4 g/dL (2.2-4.2); Glucose 97 mg/dL (74-106); Potassium 4.6 mmol/L (3.5-5.1); Protein, Total 8.1 g/dL (6.4-8.2); Sodium Level 137 mmol/L (136-145)
== END ==
PROVIDERS: PCP Family Medicine; Visit Provider Family Medicine
DX: R10.32 Left lower quadrant pain (principal)
CPT/HCPCS: 36415; 80053; 85027; 85652; 86140; 87086

== ENCOUNTER → 2020-09-01 16:19 | Outpatient (CLI) | payer OTHER, SELFPAY ==
[2020-07-07 09:15] VITALS: BMI 30.1
--- NOTE | 2020-09-01 16:41 | CT_ITS ---
STUDY: CT ABDOMEN AND PELVIS WITHOUT CONTRAST REASON FOR EXAM: Male, 69 years old. COLICKY LLQ ABD PAIN,LLQ PAIN AFTER START OF BACK/FLANK PAIN -- DIVERTICULITIS MOST LIKELY YET MAY HAVE HYDRONEPHROSIS, HX NEPHROLITHIASIS RADIATION DOSAGE (If Supplied By Facility): CTDIvol = ( 14.01 ) mGy, DLP = ( 712.84 ) mGycm TECHNIQUE: Transaxial images were obtained from the dome of the diaphragm to the symphysis pubis without oral contrast, and without intravenous contrast. Sagittal and coronal images were reconstructed. Individualized dose optimization techniques were used for this CT. COMPARISON: CT of abdomen and pelvis dated OCTOBER 28, 2018 FINDINGS: There are chronic interstitial fibrotic changes of the lung bases. Normal liver. No intrahepatic biliary duct dilatation or liver mass. Normal gallbladder and extrahepatic biliary system. Normal spleen. Normal pancreas. Normal bilateral adrenal glands. 6.7 mm calyceal stone in lower pole of the right kidney and 9.3 mm calyceal stone of the left kidney. No hydronephrosis. Stable small simple cyst of the right kidney. No additional imaging is needed. Normal visualized stomach. Normal small intestine. Mild acute diverticulitis of the proximal sigmoid colon with mild pericolonic inflammation. Extensive diverticula of the descending and sigmoid colon are present. No free air or free fluid. Surgical suture material and anastomotic changes are present in the mid transverse colon. Prior right hemicolectomy. No bowel dilatation or obstruction. The appendix is visualized and appears normal. Normal abdominal aorta. Normal inferior vena cava. Normal retroperitoneum. Normal urinary bladder. Normal abdominal wall. There are diffuse degenerative changes of the visualized lumbar spine. CT/Abdomen/Pelvis without Cont IMPRESSION: 1. Acute sigmoid diverticulitis 2. Stable bilateral kidney stones Electronically Signed: Jani Akers MD at 18:35 EDT , Service support ,
== END ==
PROVIDERS: PCP Family Medicine; Referring Provider Family Medicine; Visit Provider Family Medicine
DX: R10.32 Left lower quadrant pain (principal)
CPT/HCPCS: 74176

== ENCOUNTER → 2020-11-03 10:15 | Outpatient (CLI) | payer OTHER, SELFPAY ==
[2020-07-07 09:15] VITALS: BMI 30.1
[2020-11-03 12:12] LABS: Erythrocyte Sedimentation Rate 6 mm/hr (0-20)
[2020-11-03 12:14] LABS: Absolute Lymphocyte Count 1.39 X10^3/uL (0.83-4.51); Absolute Neutrophil Count 3.3 X10^3/uL (2.0-7.7); Basophil# 0.06 X10^3/uL; Eosinophil# 0.33 X10^3/uL; Eosinophils% 5.7 % (0-5); Hematocrit 48.5 % (40-54); Hemoglobin 16.2 g/dL (13.0-16.5); Lymphocyte # 1.39 X10^3/ul (0.83-4.51); Lymphocyte % 23.8 % (19-41); Mean Corp Hgb Conc 33.4 g/dL (32-36); Mean Corpuscular Hgb 32.5 pg (27.0-32.0); Mean Corpuscular Volume 97.2 fL (80-94); Mean Platelet Vol. 9.5 fl (6.2-12.0); Monocyte# 0.74 X10^3/uL; Monocyte% 12.7 % (0-10); NRBC Flagged by Analyzer 0 % (0-5); Neutrophil # 3.31 X10^3/uL (2.7-7.7); Neutrophil % 56.6 % (47-70); Platelet Count 215 K/mm3 (150-450); RBC Distribution Width CV 12.8 % (11.6-14.6); RBC Distribution Width SD 45.5 fl (35.1-43.9); Red Blood Count 4.99 M/mm3 (4.6-6.2); White Blood Count 5.8 K/mm3 (4.4-11.0)
[2020-11-03 12:34] LABS: AST(SGOT) 25 U/L (15-37); Alanine Aminotransfer ALT/SGPT 53 U/L (16-61); Albumin, Serum 3.9 g/dL (3.2-5.0); Alkaline Phosphatase 73 U/L (45-117); Anion Gap 2 (5-15); BUN 20 mg/dL (7-18); BUN/Creat Ratio 20.4 RATIO (10-20); CRP < 2.90 mg/L (0.0-3.0); Calcium,Total 10.6 mg/dL (8.5-10.1); Chloride 106 mmol/L (98-107); Creatinine, Serum 0.98 mg/dL (0.70-1.30); EST Glomerular Filtration Rate 81 mL/min (>60); Est Glom Filt Rate - Afr Amer 98 mL/min (>60); Glucose 100 mg/dL (74-106); Potassium 4.8 mmol/L (3.5-5.1); Protein, Total 7.9 g/dL (6.4-8.2); Sodium Level 140 mmol/L (136-145)
[2020-11-05 07:50] LABS: PTHIN 52.8 pg/mL (18.4-80.1)
== END ==
PROVIDERS: PCP Family Medicine; Visit Provider Family Medicine
DX: K57.32 Diverticulitis of large intestine without perforation or abscess without bleeding (principal); E83.52 Hypercalcemia
CPT/HCPCS: 36415; 80053; 83970; 85025; 85652; 86140

== ENCOUNTER 2020-11-27 16:58 | Emergency (ER) | payer OTHER, SELFPAY ==
[2020-07-07 09:15] VITALS: BMI 30.1
[2020-11-27 16:58] VITALS: BP 157/91; PULSE 88; RESP 18; TEMP 36.8; O2SAT 97; BMI 28.6
--- NOTE | 2020-11-27 18:09 | CT_ITS ---
HISTORY: Left flank pain EXAMINATION: CT Abdomen And Pelvis W/O Contrast Injection TECHNIQUE: Multiple axial images were obtained of the abdomen and pelvis without oral or IV contrast. A radiation dose optimization technique was used for this scan. IV Contrast dosage and agent: None. Oral contrast: None. COMPARISON: 09/01/20, October 28, 2018 FINDINGS: LOWER CHEST: Bibasilar dependent and/or fibrotic changes with 2 stable 5 mm pleural-based nodules right lung base since the 2019 study. No cardiomegaly or pericardial effusion. LIVER: Stable small low-attenuation lesion left lobe liver. No focal mass. GALLBLADDER AND BILIARY TREE: No calcified gallstones. No gallbladder distension or wall edema. No intra- or extrahepatic biliary ductal dilation. PANCREAS: No focal cystic or solid mass. SPLEEN: Normal size without focal cystic or solid mass. ADRENAL GLANDS: No nodules. KIDNEYS AND URETERS: Stable right renal cyst and nonobstructing calculus. Left hydronephrosis with 7 mm calculus in the proximal left ureter at the level of L5. PERITONEUM: No ascites or free air. BOWEL: Stable changes from right hemicolectomy. No stomach or bowel distension. Colonic diverticulosis without focal inflammatory bowel wall changes. LYMPH NODES: No enlarged mesenteric or retroperitoneal lymph nodes. VESSELS: Aorta is non-dilated. URINARY BLADDER: Nondistended. REPRODUCTIVE ORGANS: No pelvic masses. ABDOMINAL WALL: Stable small fat-containing supraumbilical and umbilical hernias. BONES: No acute or aggressive abnormality. CT/Abdomen/Pelvis without Cont IMPRESSION: Partially obstructing 7 mm left ureteral calculus at the level of L5. Individualized dose optimization techniques were used for this CT. at 1919 Reported and signed by: Shree Rangel MD Electronically Signed: Shree Rangel MD at 19:17 EDT Tel , Service support ,
--- NOTE | 2020-11-27 18:10 | EX.ED.DYSGE1 ---
HPI History of Present Illness Chief Complaint: Flank Pain Informant: patient Onset/Context/Timing Onset: Days (2) Context: Sudden Onset Timing: Continuous Quality: Aching Location: Left flank Worsened by: Nothing Relieved by: Naproxen Narrative Narrative: Patient presents with left flank pain that has been constant for the past 2 days. Patient states it began rather suddenly. Patient states he has a history of kidney stones. Patient states the pain is over the left flank area. Patient describes as aching. Patient states that occasionally radiates into his left groin. Patient states the pain improves with naproxen. Patient denies any dysuria or hematuria. Patient admits to some nausea but denies any vomiting. Patient denies any fevers or chills. [facility] Medical History (Updated 11/27/20 @ 20:[address] Mainor Carbajal DO) Adenocarcinoma, colon Anemia Atherosclerotic heart disease of [place] coronary artery without angina pectoris Bilateral kidney stones Essential (primary) hypertension Hyperlipidemia Home Medications aspirin 81 mg tablet,delayed release 81 mg PO DAILY 05/09/19 [History Last Taken Unknown] ferrous sulfate 325 mg (65 mg iron) tablet 325 mg PO DAILY 07/03/19 [History Last Taken Unknown] B-complex with vitamin C 1 cap PO DAILY 07/07/20 [History Last Taken Unknown] chromium picolinate 200 mcg tablet 200 mcg PO DAILY 07/07/20 [History Last Taken Unknown] garlic 1,000 mg capsule 1,000 mg PO QPC 07/07/20 [History Last Taken Unknown] nitroglycerin 0.4 mg sublingual tablet 0.4 mg SUBLINGUAL Q5-15M tab 07/07/20 [History Last Taken Unknown] quinapril 5 mg tablet 5 mg PO DAILY #90 tab 07/07/20 [Rx Last Taken Unknown] red yeast rice 600 mg capsule 600 mg PO DAILY 07/07/20 [History Last Taken Unknown] oxycodone-acetaminophen 1 tab PO Q6H PRN PRN 3 Days #12 tablet 11/27/20 [Rx Last Taken Unknown] Allergy/AdvReac Type Severity Reaction Status Date / Time No Known Allergies Allergy Verified 07/07/20 09:16 Surgical History H/O hemicolectomy History of left heart catheterization (11/13/17) Social History Smoking Status: Former smoker alcohol intake: current alcohol intake frequency: holidays/special occasions only Alcohol type: beer ROS ROS ED Constitutional Constitutional ED: Denies chills or fever(s) Eyes Eyes: Denies blurry vision or change in vision ENT ENT ED: Denies rhinorrhea or sore throat Cardiovascular Cardiovascular: Denies chest pain or palpitations Respiratory/Chest Respiratory/Chest: Denies cough or dyspnea Gastrointestinal Gastrointestinal: Reports nausea; Denies vomiting Genitourinary Genitourinary ED: Denies dysuria or hematuria Musculoskeletal Musculoskeletal: Reports back pain; Denies neck pain Integumentary Denies abscess or rash Neurologic Neurologic: Denies headache(s) or weakness Allergic/Immunologic Allergic/Immunologic ED: Denies mouth swelling or urticaria EXAM Physical Exam Const Vital Signs: 11/27/20 16:58 11/27/20 18:19 Temperature 98.3 F Temperature Source Temporal Pulse Rate 88 88 Respiratory Rate 18 15 Blood Pressure 157/91 H 158/80 H Blood Pressure Mean 113 106 Pulse Ox 97 97 Oxygen Delivery Method Room Air Room Air Positive well nourished and well developed General Appearance ED: well developed HEENT Reports moist mucous membranes Neck supple and no JVD Resp normal respiratory effort and clear to auscultation bilaterally Cardio regular rate, regular rhythm and no murmurs GI normal to inspection, nondistended, normoactive bowel sounds and non-tender Palpation: soft Back/Spine General Back: CVA tenderness left Extremity normal to inspection General Extremety ED: Negative for edema or tenderness General Extremity: Negative for edema Neuro oriented x3, CN's II-XII intact bilaterally and no sensory deficits noted Sensorium / Orientation: alert Motor Exam: strength 5/5 throughout Psych mental status grossly normal Skin no rashes or lesions noted MDM MDM MDM Narrative Medical decision making narrative: Patient was given IV fluids, morphine, and Zofran. CBC shows a mild leukocytosis of 14.3. Comprehensive metabolic profile showed a slightly elevated creatinine of 1.93 and BUN of 27. Urinalysis does not show any evidence of urinary tract infection. Patient is feeling comfortable on reevaluation. Case was discussed with Dr. Granger. He will follow up with the patient as an outpatient. Patient was given a prescription for Percocet to take as needed for pain. Patient was advised that this may require surgical intervention to remove the stone. Patient understood and was agreeable with the plan. All questions were answered. Lab Data Labs: Laboratory Results - last 24 hr 11/27/20 11/27/20 11/27/20 17:30 17:30 18:28 WBC 14.3 H RBC 4.99 Hgb 16.2 Hct 48.4 MCV 97.0 H MCH 32.5 H MCHC 33.5 RDW Std Deviation 44.9 H RDW Coeff of Stephen 12.6 Plt Count 228 MPV 9.2 Immature Gran % (Auto) 0.400 Neut % (Auto) 82.3 H Lymph % (Auto) 6.4 L [place] % (Auto) 9.7 Eos % (Auto) 0.8 Baso % (Auto) 0.4 Absolute Neuts (auto) 11.8 H Absolute Lymphs (auto) 0.92 Nucleated RBC % 0 Sodium 140 Potassium 4.6 Chloride 104 Carbon Dioxide 31.0 Anion Gap 5 BUN 27 H Creatinine 1.93 H Estim Creat Clear Calc 34.95 Est GFR (MDRD) Af Amer 45 L Est GFR (MDRD) Non-Af 37 L BUN/Creatinine Ratio 14.0 Glucose 115 H Calcium 10.3 H Total Bilirubin 0.90 AST 27 ALT 58 Alkaline Phosphatase 76 Total Protein 8.0 Albumin 3.9 Globulin 4.1 Albumin/Globulin Ratio 1.0 Urine Color Yellow Urine Clarity Clear Urine pH 5.0 Ur Specific [place] 1.025 Urine Protein 15 H Urine Glucose (UA) Normal Urine Ketones 50 H Urine Occult Blood 150 H Urine Nitrite Negative Urine Bilirubin Negative Urine Urobilinogen Normal Ur Leukocyte Esterase Negative Urine RBC 5-10 SEEN Urine WBC 0 SEEN Ur Squamous Epith Cells 0 SEEN Urine Bacteria 0 SEEN Urine Mucus 0 SEEN Radiography Diagnostic Testing: Radiology Impression Abdomen/Pelvis CT 11/27/20 18:09 IMPRESSION: Partially obstructing 7 mm left ureteral calculus at the level of L5. Individualized dose optimization techniques were used for this CT. at 1919 Reported and signed by: Shree Rangel MD Electronically Signed: Shree Rangel MD at 19:17 EDT Tel , Service support , Discharge Plan Triage Chief Complaint: Flank Pain ED Provider: Mainor Carbajal Dx/Rx/DC Orders Clinical Impression: Left ureteral calculus Instructions: ED Kidney Stone w/ Colic Prescriptions: New oxycodone-acetaminophen [oxycodone-acetaminophen] 1 TABLET tablet 1 tab PO Q6H PRN PRN (Reason: Pain) 3 Days Qty: 12 RF: 0 No Action aspirin [Adult Aspirin Regimen] 81 mg tablet,delayed release (DR/EC) 81 mg PO DAILY RF: 0 ferrous sulfate [FeroSul] 325 mg (65 mg iron) tablet 325 mg PO DAILY RF: 0 red yeast rice 600 mg capsule 600 mg PO DAILY RF: 0 B-complex with vitamin C [Super B/C] Capsule 1 cap PO DAILY RF: 0 chromium picolinate 200 mcg tablet 200 mcg PO DAILY RF: 0 nitroglycerin 0.4 mg tablet, sublingual 0.4 mg SUBLINGUAL Q5-15M RF: 0 garlic 1,000 mg capsule 1,000 mg PO QPC RF: 0 quinapril 5 mg tablet 5 mg PO DAILY Qty: 90 RF: 3 Primary Care Provider: Mainor Childress Referrals: Mainor Childress MD [Primary Care Provider] - 5-7 Days Brody Granger MD [STAFF PHYSICIAN] - 3-5 Days Disposition Disposition: Home, Self Care
[2020-11-27 18:18] LABS: Absolute Lymphocyte Count 0.92 X10^3/uL (0.83-4.51); Absolute Neutrophil Count 11.8 X10^3/uL (2.0-7.7); Basophil# 0.05 X10^3/uL; Basophil% 0.4 % (0-1); Eosinophil# 0.12 X10^3/uL; Eosinophils% 0.8 % (0-5); Hematocrit 48.4 % (40-54); Hemoglobin 16.2 g/dL (13.0-16.5); Lymphocyte # 0.92 X10^3/ul (0.83-4.51); Lymphocyte % 6.4 % (19-41); Mean Corp Hgb Conc 33.5 g/dL (32-36); Mean Corpuscular Hgb 32.5 pg (27.0-32.0); Mean Platelet Vol. 9.2 fl (6.2-12.0); Monocyte# 1.39 X10^3/uL; Monocyte% 9.7 % (0-10); NRBC Flagged by Analyzer 0 % (0-5); Neutrophil # 11.75 X10^3/uL (2.7-7.7); Neutrophil % 82.3 % (47-70); Platelet Count 228 K/mm3 (150-450); RBC Distribution Width CV 12.6 % (11.6-14.6); RBC Distribution Width SD 44.9 fl (35.1-43.9); Red Blood Count 4.99 M/mm3 (4.6-6.2); White Blood Count 14.3 K/mm3 (4.4-11.0)
[2020-11-27 18:19] VITALS: BP 158/80; PULSE 88; RESP 15; O2SAT 97
[2020-11-27] MEDS: Ondansetron 4 MG/2 ML Vial IV (18:21)
[2020-11-27] MEDS: 0.9% Normal Saline 1,000 ML 1000 ML IV (18:21)
[2020-11-27] MEDS: Morphine 4 MG/ML Syringe IV (18:21)
[2020-11-27 18:31] LABS: AST(SGOT) 27 U/L (15-37); Alanine Aminotransfer ALT/SGPT 58 U/L (16-61); Albumin, Serum 3.9 g/dL (3.2-5.0); Alkaline Phosphatase 76 U/L (45-117); Anion Gap 5 (5-15); BUN 27 mg/dL (7-18); Calcium,Total 10.3 mg/dL (8.5-10.1); Chloride 104 mmol/L (98-107); Creatinine, Serum 1.93 mg/dL (0.70-1.30); EST Glomerular Filtration Rate 37 mL/min (>60); Est Glom Filt Rate - Afr Amer 45 mL/min (>60); Estimated Creatinine Clearance 34.95 ml/min; Globulin 4.1 g/dL (2.2-4.2); Glucose 115 mg/dL (74-106); Potassium 4.6 mmol/L (3.5-5.1); Sodium Level 140 mmol/L (136-145)
[2020-11-27 18:31] LABS: Bacteria 0 SEEN /hpf (None Seen); Mucous, Urine 0 SEEN /hpf (<or=2+); Squamous Epithelial Cells - UA 0 SEEN /hpf (0-5); White Blood Cells 0 SEEN /hpf (0-5)
[2020-11-27 18:37] LABS: Color, Urine Yellow (Yellow); Glucose, Dipstick Normal (Normal); Ketone-Dipstick 50 mg/dl (Negative); Leukocyte Esterase-Dipstick Negative /ul (Negative); Nitrite-Dipstick Negative (Negative); Occult Blood-Urine 150 /ul (Negative); Protein-Dipstick 15 mg/dl (Negative); Specific Gravity, Urine 1.025 (1.002-1.030); Urine Bilirubin Dipstick Negative (Negative); Urine Clarity Clear (Clear); Urine Urobilinogen Normal (Normal)
[2020-11-27 18:42] LABS: Red Blood Cells-Urine 5-10 SEEN /hpf (0-5)
[2020-11-27 20:15] VITALS: BP 140/81; PULSE 78; RESP 15; O2SAT 98
[2020-11-27 20:25] VITALS: BP 140/81; PULSE 75; RESP 16; O2SAT 97
[2020-11-27] MEDS: oxyCODONE 5 MG Tablet PO (20:30)
== END 2020-11-27 20:32 | disposition home or self-care (01) ==
PROVIDERS: Emergency Provider Emergency Medicine; PCP Family Medicine
DX: N20.1 Calculus of ureter (principal); Z87.891 Personal history of nicotine dependence; I25.10 Atherosclerotic heart disease of native coronary artery without angina pectoris; I10 Essential (primary) hypertension; E78.5 Hyperlipidemia, unspecified; D64.9 Anemia, unspecified; Z87.442 Personal history of urinary calculi; Z79.82 Long term (current) use of aspirin
CPT/HCPCS: 74176; 80053; 81001; 85025; 99284; J7030; J2405

== ENCOUNTER 2020-12-04 07:08 | Day surgery (SDC) | payer OTHER, SELFPAY ==
[2020-12-04 07:45] VITALS: BP 123/73; PULSE 85; RESP 16; TEMP 37.3; O2SAT 95; BMI 28.0
[2020-12-04] MEDS: Lactated Ringers 1,000 ML 100 ML IV ×2 (07:59→09:47)
[2020-12-04] MEDS: Cefazolin 2 GM in 0.9% Normal Saline 100 ML IV (08:41)
--- NOTE | 2020-12-04 08:46 | HP.PCM_ITS ---
HPI - General HPI Narrative ADITI WILLIAMSON, is a 69 M who presents for treatment of a left ureteral calculi causing obstruction. Plan the laser and place a stent. [facility] Medical History (Updated 12/03/20 @ 14:07 by Rossy Gonzalez) Adenocarcinoma, colon Anemia Atherosclerotic heart disease of [place] coronary artery without angina pectoris Bilateral kidney stones Cancer Cardiology follow-up encounter Essential (primary) hypertension Former smoker History of diverticulitis History of echocardiogram History of restless legs syndrome History of stress test Hyperlipidemia Redness of skin Sleep apnea Wears dentures Wears glasses Home Medications aspirin 81 mg tablet,delayed release 81 mg PO DAILY 05/09/19 [History Last Taken 11/29/20] ferrous sulfate 325 mg (65 mg iron) tablet 325 mg PO DAILY 07/03/19 [History Last Taken 11/29/20] B-complex with vitamin C 1 cap PO DAILY 07/07/20 [History Last Taken 11/29/20] chromium picolinate 200 mcg tablet 200 mcg PO DAILY 07/07/20 [History Last Taken 11/29/20] garlic 1,000 mg capsule 1,000 mg PO QPC 07/07/20 [History Last Taken 11/29/20] nitroglycerin 0.4 mg sublingual tablet 0.4 mg SUBLINGUAL Q5-15M tab 07/07/20 [History Last Taken Unknown] quinapril 5 mg tablet 5 mg PO DAILY #90 tab 07/07/20 [Rx Last Taken 12/04/20 05:30 5 MG] red yeast rice 600 mg capsule 600 mg PO DAILY 07/07/20 [History Last Taken 11/29/20] oxycodone-acetaminophen 1 tab PO Q6H PRN PRN 3 Days #12 tablet 11/27/20 [Rx Last Taken 11/28/20] Super Beets 1 cap PO/SL DAILY 12/03/20 [History Last Taken 11/29/20] ciprofloxacin HCl [Cipro] 500 mg PO BID #10 tab 12/04/20 [Rx Last Taken Unknown] oxycodone-acetaminophen 1 tab PO Q4H PRN 7 Days #14 tab 12/04/20 [Rx Last Taken Unknown] Allergy/AdvReac Type Severity Reaction Status Date / Time No Known Allergies Allergy Verified 12/03/20 13:45 Surgical History (Updated 12/03/20 @ 14:13 by Rossy Gonzalez) H/O hemicolectomy History of left heart catheterization (04/10/17) Social History Smoking Status: Former smoker alcohol intake: current alcohol intake frequency: holidays/special occasions only Alcohol type: beer ROS Constitutional Constitutional: Denies chills, fever(s) or malaise Eyes Eyes: Denies blurry vision or change in vision ENT HEENT: Reports none Cardiovascular Cardiovascular: Denies chest pain or palpitations Respiratory/Chest Respiratory/Chest: Denies cough or shortness of breath with exertion Gastrointestinal Gastrointestinal: Denies abdominal pain, constipation or diarrhea Musculoskeletal Musculoskeletal: Denies back pain, joint stiffness or joint swelling Integumentary Integumentary: Denies dry skin, jaundice, lesions or rash Neurologic Neurologic: Denies confusion, syncope or weakness Psychiatric Psychiatric: Reports none; Denies anxiety or depression Endocrine Endocrinology: Denies excessive sweating, fatigue or flushing Hematologic/Lymphatic Hematologic/Lymphatic: Denies anemia, easy bleeding or easy bruising Vital Signs Vital Signs Vital Signs: 12/04/20 07:45 Temperature 99.2 F H Temperature Source Temporal Pulse Rate 85 Respiratory Rate 16 Respiratory Pattern Bradypnea Blood Pressure 123/73 H Blood Pressure Mean 89 Blood Pressure Source Monitor Blood Pressure Position Sitting Blood Pressure Location Left Arm Pulse Ox 95 Oxygen Delivery Method Room Air Weight Weight: 83.8 kg Body Mass Index (BMI) 28.0 Physical Exam Const alert and oriented x3 General Appearance: cooperative HEENT normocephalic, head/scalp atraumatic, EAC's normal and TM's normal bilaterally Eyes PERRL and EOMs intact bilaterally Pupil: sluggish Neck no lymphadenopathy, supple and no JVD General: trachea midline Lymph Lymphatic: no lymphadenopathy noted, lymphedema and lymphadenopathy Resp normal respiratory effort, normal air movement and clear to auscultation bilaterally Cardio regular rate, regular rhythm and peripheral pulses 2+ throughout GI soft to palpation, non-tender and non-distended Extremity normal capillary refill and no clubbing, cyanosis or edema General Extremity: no tenderness to palpation of joints or extremities Skin no rashes or lesions noted General Skin Exam: turgor normal Lesions: no lesions Rashes: no rashes Neuro CN's II-XII intact bilaterally Speech: speech normal Motor Exam: strength 5/5 throughout; Negative for general weakness Psych thought process normal, cooperative and affect normal Appearance: appropriate Assessment & Plan Assessment/Plan (1) Left ureteral calculus: PLAN: Plan to proceed with left ureteroscopy laser lithotripsy of stone and stent.
--- NOTE | 2020-12-04 08:47 | PCM.DC ---
Discharge Instructions Diet Discharge Diet: No restrictions Activity Discharge Activity: Return to Normal Activity and May Not Drive (while taking narcotic pain medications.) Dressing / Incision Call your doctor if you observe: Fever of 101 or Higher Follow Up Care Please Follow Up With: Brody Granger MD When: Call [phone] for an appointment Test Results: Test results from this visit will be discussed in further detail at your follow-up appointment, if applicable. Discharge Plan Admission Primary Reason for Your Visit: laser of left stone and stent Attending Provider: Brody Granger Primary Care Provider: Mainor Childress Instructions Patient Instructions: ED Chest Pain, Noncardiac Discharge Orders/Prescriptions Prescriptions: New ciprofloxacin HCl [Cipro] 500 mg tablet 500 mg PO BID Qty: 10 RF: 0 oxycodone-acetaminophen 5-325 mg tablet 1 tab PO Q4H PRN (Reason: pain) 7 Days Qty: 14 RF: 0 Continued aspirin [Adult Aspirin Regimen] 81 mg tablet,delayed release (DR/EC) 81 mg PO DAILY RF: 0 ferrous sulfate [FeroSul] 325 mg (65 mg iron) tablet 325 mg PO DAILY RF: 0 red yeast rice 600 mg capsule 600 mg PO DAILY RF: 0 B-complex with vitamin C [Super B/C] Capsule 1 cap PO DAILY RF: 0 chromium picolinate 200 mcg tablet 200 mcg PO DAILY RF: 0 nitroglycerin 0.4 mg tablet, sublingual 0.4 mg SUBLINGUAL Q5-15M RF: 0 garlic 1,000 mg capsule 1,000 mg PO QPC RF: 0 quinapril 5 mg tablet 5 mg PO DAILY Qty: 90 RF: 3 oxycodone-acetaminophen 1 TABLET tablet 1 tab PO Q6H PRN PRN (Reason: Pain) 3 Days Qty: 12 RF: 0 Super Beets 1 cap PO/SL DAILY RF: 0 Referrals / Follow Up: Mainor Childress MD [Primary Care Provider] - Brody Granger MD [STAFF PHYSICIAN] - Disposition Disposition (needs filled in before D/C Order can be placed): Home, Self Care
--- NOTE | 2020-12-04 09:21 | PCM.OPRPT ---
Report of Operation Date of Procedure: 12/04/20 Pre-Operative Diagnosis: Left ureteral calculi Post-Operative Diagnosis: Same Surgery/Procedure Performed:: Cystoscopy, balloon dilation, left ureteroscopy,left retrograde,, laser lithotripsy of stone and stent placement Description of Surgical Findings:: This is a patient who presents to the hospital for treatment for an obstructing distal ureter calculi. I discussed with the patient how the surgery would be performed and we reviewed the risks and benefits of the surgery. The risk and benefits include the risk of failure to remove the stone completely and that the patient may need multiple procedures. We discussed the risk of an infection, the risk of bleeding. We discussed the very rare risk of serious complicated injury to the ureter. The patient understands that if the stone is not able to be removed safely that we may abort the procedure and place a stent. After full discussion and all questions address with the patient the consent form was signed the side was marked appropriately and the patient was taken back to the operating room for the procedure. The patient was taken back to the operating room. After induction of anesthesia by the anesthesiology team the patient was placed in dorsolithotomy position. The genitals were prepped and draped in usual sterile fashion. I went into the bladder with a 21 [place] rigid cystourethroscope through the urethra. Upon entering the bladder I inspected the trigone the left and right ureteral orifice and the bladder itself. I then cannulated the left ureteral orifice and advanced a 0.038 Glidewire up into the kidney. Then over the Glidewire I advanced a 5 Fr Ureteral catheter and performed a retrograde pyelogram with about 10cc of contrast, to delineate the anatomy and identify the stone location. Then a ureteral balloon dilator was advanced over the wire and the distal ureter was balloon dilated with a 12 Fr x 5cm balloon dilator. After 3 minutes of dilating the ureter the balloon was backloaded off the 0.038 glidewire then the safety wire was left in place. I then placed a second 0.038 Guidewire as a working wire and over the working 0.038 guidewire I went in with a Flexible 7.9fr ureteroscope. I was able to go inside with the 7.9Fr flexible utereroscope and I pulled out the working guidewire and then through the 7.9 fr flexible ureteroscope I ascended up the ureter with direct visualization until the stone was located, then I engaged the stone with laser lithotripsy using a 270miron laser fiber with energy setting of 6 Hertz and 0.6 J until the stone was lasered into tiny little pieces that should pass on their own. After successful laser lithotripsy of the stone and stone fragements, a retrograde pyelogram was performed with 10cc of contrast and no extravasation of contrast or perforation was identified in the ureter. I then backed out of the ureter left the wire in place and then over the 0.038 guidewire I placed a double coiled pigtail ureteral stent. The ureteral stent was advanced over the 0.038 guidewire under direct fluoroscopic guidance and direct cystoscopic visual guidance, once the stent was in good position I pulled the wire and the stent coiled in the kidney and bladder in good position. I then drained the patient's bladder and the cystoscope was removed and the patient was taken back to the recovery room in good position. The patient was given discharge instructions to call the office for instructions on when to come to the office to have the stent removed. Surgeon: salvador Type of Anesthesia: General Drains: left stent Admit VTE Documentation VTE Present on Admission: No VTE Mechan Device Prophylaxis: SCD's
[2020-12-04 09:32] VITALS: BP 123/73; BP 131/79; PULSE 81; RESP 16; TEMP 36; O2SAT 93
[2020-12-04 09:45] VITALS: BP 123/73; BP 128/76; PULSE 78; RESP 16; O2SAT 92
[2020-12-04] MEDS: Ketorolac 15 MG/ML Vial IV (09:50)
[2020-12-04 10:00] VITALS: BP 123/73; BP 131/72; PULSE 74; RESP 16; TEMP 35.9; O2SAT 92
[2020-12-04 10:34] VITALS: BP 123/73
== END 2020-12-04 10:34 | disposition home or self-care (01) ==
LOC: SDC 07:09 → AC 07:10
PROVIDERS: PCP Family Medicine; Referring Provider Urology; Visit Provider Urology
PROC: 0TJ98ZZ Inspection of Ureter, Via Natural or Artificial Opening Endoscopic (ICD-10-PCS; CPT 52352; principal; 2020-12-04 09:05)
DX: N13.2 Hydronephrosis with renal and ureteral calculous obstruction (principal); I10 Essential (primary) hypertension; D64.9 Anemia, unspecified; G25.81 Restless legs syndrome; E78.5 Hyperlipidemia, unspecified; G47.30 Sleep apnea, unspecified; I25.10 Atherosclerotic heart disease of native coronary artery without angina pectoris; Z87.19 Personal history of other diseases of the digestive system; Z87.442 Personal history of urinary calculi; Z85.038 Personal history of other malignant neoplasm of large intestine; Z79.82 Long term (current) use of aspirin; Z79.899 Other long term (current) drug therapy; Z87.891 Personal history of nicotine dependence
CPT/HCPCS: 52356; 76000; C1769; C2617; J2405

== ENCOUNTER → 2021-03-18 12:21 | Outpatient (CLI) | payer OTHER, SELFPAY ==
[2021-03-18 15:45] LABS: Absolute Lymphocyte Count 1.64 X10^3/uL (0.83-4.51); Absolute Neutrophil Count 2.8 X10^3/uL (2.0-7.7); Basophil# 0.07 X10^3/uL; Basophil% 1.3 % (0-1); Eosinophil# 0.26 X10^3/uL; Eosinophils% 4.8 % (0-5); Hematocrit 47.9 % (40-54); Hemoglobin 15.6 g/dL (13.0-16.5); Lymphocyte # 1.64 X10^3/ul (0.83-4.51); Lymphocyte % 30.1 % (19-41); Mean Corp Hgb Conc 32.6 g/dL (32-36); Mean Corpuscular Hgb 31.3 pg (27.0-32.0); Mean Corpuscular Volume 96.2 fL (80-94); Mean Platelet Vol. 9.3 fl (6.2-12.0); Monocyte# 0.67 X10^3/uL; Monocyte% 12.3 % (0-10); NRBC Flagged by Analyzer 0 % (0-5); Neutrophil # 2.78 X10^3/uL (2.7-7.7); Neutrophil % 51.1 % (47-70); Platelet Count 241 K/mm3 (150-450); RBC Distribution Width SD 46.5 fl (35.1-43.9); Red Blood Count 4.98 M/mm3 (4.6-6.2); White Blood Count 5.4 K/mm3 (4.4-11.0)
[2021-03-18 16:14] LABS: AST(SGOT) 34 U/L (15-37); Alanine Aminotransfer ALT/SGPT 65 U/L (16-61); Albumin, Serum 3.8 g/dL (3.2-5.0); Alkaline Phosphatase 68 U/L (45-117); Anion Gap 5 (5-15); BUN 18 mg/dL (7-18); BUN/Creat Ratio 13.7 RATIO (10-20); Calcium,Total 10.2 mg/dL (8.5-10.1); Chloride 107 mmol/L (98-107); Creatinine, Serum 1.31 mg/dL (0.70-1.30); EST Glomerular Filtration Rate 58 mL/min (>60); Est Glom Filt Rate - Afr Amer 70 mL/min (>60); Glucose 114 mg/dL (74-106); Lipase 234 U/L (73-393); Potassium 4.7 mmol/L (3.5-5.1); Protein, Total 7.8 g/dL (6.4-8.2); Sodium Level 141 mmol/L (136-145); Thyroid Stim Hormone (TSH) 2.57 uIU/mL (0.358-3.74)
[2021-03-23 08:09] LABS: Endomysial Antibody IgA Negative (Negative)
[2021-03-23 09:40] LABS: Immunoglobulin A 316 mg/dL (61-437); t-Transglutaminase IgA <2 U/mL (0-3)
== END ==
PROVIDERS: PCP Family Medicine; Referring Provider Family Medicine; Visit Provider Family Medicine
DX: R19.4 Change in bowel habit (principal); R19.7 Diarrhea, unspecified
CPT/HCPCS: 36415; 80053; 82784; 83516; 83690; 84443; 85025; 86255

== ENCOUNTER → 2021-03-22 | Outpatient (CLI) | payer OTHER, SELFPAY ==
[2021-03-24 18:59] LABS: Calprotectin, Stool 26 ug/g (0-120)
== END | disposition home or self-care (01) ==
LOC: LABSPEC 10:57
PROVIDERS: PCP Family Medicine; Referring Provider Family Medicine; Visit Provider Family Medicine
DX: R19.4 Change in bowel habit (principal); R19.7 Diarrhea, unspecified
CPT/HCPCS: 83630; 83986; 83993; 87493; 87506

== ENCOUNTER → 2021-03-25 07:16 | Outpatient (CLI) | payer OTHER, SELFPAY ==
--- NOTE | 2021-03-25 07:19 | US_ITS ---
STUDY: ABDOMINAL ULTRASOUND REASON FOR EXAM: Male, 70 years old. RUQ pain and post-prandial diarrhea/abdominal pain TECHNIQUE: Transabdominal ultrasound was performed with real-time and static schmidt scale imaging. TECHNICAL QUALITY: Adequate. COMPARISON: None. FINDINGS: Liver: The liver measures 13 cm. There is normal echogenicity of the liver. The bile ducts are within normal limits. There is hepatic color flow. The direction of portal flow is hepatopetal. There is no demonstrated mass lesion. Gallbladder: Normal distended gallbladder. The gallbladder wall measures 1.1 mm. There is a negative sonographic Pantoja''s sign. There is no pericholecystic fluid. There are no gallstones. Multiple small gallbladder polyps are seen. The largest measures 3 mm. Common Bile Duct (C.B.D.): The common bile duct measures 3.0 mm. Pancreas: Normal size of the head, body and tail of the pancreas. There is normal echogenicity of the pancreas. There is no demonstrated pancreatic mass or cyst. Spleen: Normal size of the spleen. The spleen measures 9 cm x 4.5 size by 3.2 cm. Right Kidney: Normal size of the right kidney. The right kidney measures 10.3 cm x 5.3 cm x 6.1 cm. Normal renal cortex. The right cortex measures 1.7 cm. There is a 2 cm x 2.3 cm x 1.9 cm cyst. There is no right hydronephrosis. There is a 7 mm x 8 mm x 6 mm calculus. Left Kidney: Normal size of the left kidney. The left kidney measures 11.9 cm x 4.3 cm x 5.3 cm. Normal renal cortex. The left cortex measures 1.7 cm. There is evidence of a 1.2 cm x 1.2 cm x 0.9 cm cyst. There is no left hydronephrosis. Aorta: Unremarkable I.V.C.: The IVC is patent. There is no ascites. US/Abdomen Complete IMPRESSION: Multiple small gallbladder polyps. Bilateral renal cysts. Nonobstructive right intrarenal calculus. Electronically Signed: Flaco Peña MD at 12:40 EDT , Service support ,
== END ==
PROVIDERS: PCP Family Medicine; Referring Provider Family Medicine; Visit Provider Family Medicine
DX: R10.13 Epigastric pain (principal)
CPT/HCPCS: 76700

== ENCOUNTER 2021-06-25 10:54 | Outpatient (CLI) | payer BC, SELFPAY ==
[2021-06-25 12:22] LABS: Absolute Lymphocyte Count 1.52 X10^3/uL (0.83-4.51); Absolute Neutrophil Count 4.7 X10^3/uL (2.0-7.7); Basophil# 0.07 X10^3/uL; Basophil% 0.9 % (0-1); Eosinophil# 0.18 X10^3/uL; Eosinophils% 2.4 % (0-5); Hematocrit 49.3 % (40-54); Hemoglobin 16.3 g/dL (13.0-16.5); Lymphocyte # 1.52 X10^3/ul (0.83-4.51); Lymphocyte % 20.6 % (19-41); Mean Corp Hgb Conc 33.1 g/dL (32-36); Mean Corpuscular Volume 96.7 fL (80-94); Mean Platelet Vol. 9.5 fl (6.2-12.0); Monocyte# 0.85 X10^3/uL; Monocyte% 11.5 % (0-10); NRBC Flagged by Analyzer 0 % (0-5); Neutrophil # 4.72 X10^3/uL (2.7-7.7); Neutrophil % 64.2 % (47-70); Platelet Count 248 K/mm3 (150-450); RBC Distribution Width CV 12.4 % (11.6-14.6); RBC Distribution Width SD 43.9 fl (35.1-43.9); White Blood Count 7.4 K/mm3 (4.4-11.0)
[2021-06-25 12:49] LABS: PTHIN 65.4 pg/mL (18.4-80.1)
[2021-06-25 12:51] LABS: Vitamin D,25 Hydroxy 43.4 ng/mL
[2021-06-25 13:08] LABS: AST(SGOT) 33 U/L (15-37); Alanine Aminotransfer ALT/SGPT 65 U/L (16-61); Albumin, Serum 3.9 g/dL (3.2-5.0); Alkaline Phosphatase 71 U/L (45-117); Anion Gap 3 (5-15); BUN 17 mg/dL (7-18); BUN/Creat Ratio 15.9 RATIO (10-20); Calcium,Total 10.2 mg/dL (8.5-10.1); Chloride 104 mmol/L (98-107); Creatinine, Serum 1.07 mg/dL (0.70-1.30); EST Glomerular Filtration Rate 73 mL/min (>60); Est Glom Filt Rate - Afr Amer 88 mL/min (>60); Globulin 4.1 g/dL (2.2-4.2); Glucose 87 mg/dL (74-106); Potassium 4.3 mmol/L (3.5-5.1); Sodium Level 138 mmol/L (136-145); Thyroid Stim Hormone (TSH) 5.82 uIU/mL (0.358-3.74)
[2021-06-28 18:51] LABS: Lipase 330 U/L (73-393)
== END 2021-06-25 23:59 | disposition short-term general hospital (02) ==
LOC: MTLAB 10:57
PROVIDERS: PCP Family Medicine; Referring Provider Family Medicine; Visit Provider Family Medicine
DX: E83.52 Hypercalcemia (principal); R19.7 Diarrhea, unspecified; R10.13 Epigastric pain
CPT/HCPCS: 36415; 80053; 82306; 83690; 83970; 84443; 85025

== ENCOUNTER 2021-06-29 09:53 | Outpatient (CLI) | payer BC, SELFPAY | END 2021-06-29 23:59 | disposition short-term general hospital (02) | PROVIDERS: PCP Family Medicine; Referring Provider Family Medicine; Visit Provider Family Medicine | DX: E83.52 Hypercalcemia (principal); R19.7 Diarrhea, unspecified; R10.13 Epigastric pain ==

== ENCOUNTER 2021-07-27 09:37 | Outpatient (CLI) | payer BC, SELFPAY ==
--- NOTE | 2021-07-27 09:39 | NM_ITS ---
CLINICAL: 70-year-old male with history of epigastric pain. RADIONUCLIDE HEPATOBILIARY SCINTIGRAPHY COMPARISON: Abdominal ultrasound report 03/25/2021 FINDINGS: Following the intravenous administration of 5.2 mCi of 99m Tc Mebrofenin, hepatobiliary images reveal: 1. Relatively prompt and homogeneous radiopharmaceutical concentration is noted by a normal sized liver. No parenchymal defects are identified. 2. Gallbladder activity is identified at 30 minutes post radiopharmaceutical administration. 3. Small intestinal tract is observed at 15 minutes following tracer injection. 4. Washout of the radiopharmaceutical by the hepatic parenchyma appears qualitatively normal. The patient was administered a fatty meal (8 ounces of post). The post fatty meal ingestion gallbladder ejection fraction calculated at 60 minutes following fatty meal administration was noted to be 33.0 % (normal greater than 30%). Duodenal-gastric reflux is demonstrated following the administration and consumption of the fatty meal. NM/Hepatobilliary Img w/Pharm Int IMPRESSION: 1. A gallbladder ejection fraction calculated to be greater than 30% following the administration of an ingested fatty meal makes the probability of functional hepatobiliary disease (gallbladder and/or sphincter of Oddi dyskinesia) and/or organic hepatobiliary disease (chronic acalculous cholecystitis and/or cystic duct syndrome) to be low. (Jeffry and Bishnu, J Nucl Med 43: 1603, 2002). 2. There is scintigraphic evidence of post fatty meal duodenal gastric reflux as defined above. Electronically Signed: Christopher Forman DO at 22:45 EST ,
== END 2021-07-27 23:59 | disposition home or self-care (01) ==
LOC: NM 09:39
PROVIDERS: PCP Family Medicine; Referring Provider Family Medicine; Visit Provider Family Medicine
DX: R10.13 Epigastric pain (principal)
CPT/HCPCS: 78227; A9537

== ENCOUNTER 2021-08-23 10:57 | Outpatient (CLI) | payer BC, SELFPAY ==
[2021-08-23 12:40] LABS: Erythrocyte Sedimentation Rate 20 mm/hr (0-20)
[2021-08-23 12:42] LABS: Absolute Lymphocyte Count 1.41 X10^3/uL (0.83-4.51); Basophil# 0.06 X10^3/uL; Basophil% 0.9 % (0-1); Eosinophil# 0.18 X10^3/uL; Eosinophils% 2.8 % (0-5); Hemoglobin 16.9 g/dL (13.0-16.5); Lymphocyte # 1.41 X10^3/ul (0.83-4.51); Mean Corp Hgb Conc 34.5 g/dL (32-36); Mean Corpuscular Hgb 33.6 pg (27.0-32.0); Mean Corpuscular Volume 97.4 fL (80-94); Mean Platelet Vol. 9.5 fl (6.2-12.0); Monocyte# 0.76 X10^3/uL; Monocyte% 11.9 % (0-10); NRBC Flagged by Analyzer 0 % (0-5); Neutrophil # 3.97 X10^3/uL (2.7-7.7); Neutrophil % 62.1 % (47-70); Platelet Count 235 K/mm3 (150-450); RBC Distribution Width CV 12.8 % (11.6-14.6); RBC Distribution Width SD 45.4 fl (35.1-43.9); Red Blood Count 5.03 M/mm3 (4.6-6.2); White Blood Count 6.4 K/mm3 (4.4-11.0)
[2021-08-23 13:25] LABS: ALB/GLOB Ratio 0.9 RATIO (0.9-2.4); AST(SGOT) 23 U/L (15-37); Alanine Aminotransfer ALT/SGPT 49 U/L (16-61); Albumin, Serum 3.9 g/dL (3.2-5.0); Alkaline Phosphatase 78 U/L (45-117); Anion Gap 5 (5-15); BUN 16 mg/dL (7-18); BUN/Creat Ratio 14.2 RATIO (10-20); Bilirubin, Direct 0.17 mg/dL (0.00-0.30); CRP < 2.90 mg/L (0.0-3.0); Calcium,Total 10.1 mg/dL (8.5-10.1); Chloride 103 mmol/L (98-107); Creatinine, Serum 1.13 mg/dL (0.70-1.30); EST Glomerular Filtration Rate 68 mL/min (>60); Est Glom Filt Rate - Afr Amer 82 mL/min (>60); Globulin 4.5 g/dL (2.2-4.2); Glucose 100 mg/dL (74-106); LDH 132 U/L (87-241); Potassium 4.4 mmol/L (3.5-5.1); Protein, Total 8.4 g/dL (6.4-8.2); Sodium Level 140 mmol/L (136-145)
[2021-08-25 21:27] LABS: Gastrin, Serum 55 pg/mL (0-115)
== END 2021-08-23 23:59 | disposition home or self-care (01) ==
LOC: LAB 10:59
PROVIDERS: PCP Family Medicine; Referring Provider Nurse Practitioner Adult Health; Visit Provider Nurse Practitioner Adult Health
DX: K52.9 Noninfective gastroenteritis and colitis, unspecified (principal)
CPT/HCPCS: 36415; 80053; 82248; 82941; 83615; 85025; 85652; 86140

== ENCOUNTER 2021-08-25 09:06 | Outpatient (CLI) | payer BC, SELFPAY ==
[2021-08-27 08:10] LABS: H. PYLORI STOOL AG Negative (Negative)
[2021-08-27 09:42] LABS: Giardia Lamblia, Stool EIA Negative (Negative)
== END 2021-08-25 23:59 | disposition home or self-care (01) ==
PROVIDERS: PCP Family Medicine; Referring Provider Nurse Practitioner Adult Health; Visit Provider Nurse Practitioner Adult Health
DX: K52.9 Noninfective gastroenteritis and colitis, unspecified (principal); Z85.038 Personal history of other malignant neoplasm of large intestine; K57.90 Diverticulosis of intestine, part unspecified, without perforation or abscess without bleeding
CPT/HCPCS: 87177; 87209; 87329; 87493; 87506

== ENCOUNTER 2021-09-13 07:41 | Outpatient (CLI) | payer BC, SELFPAY ==
--- NOTE | 2021-09-13 07:45 | CT_ITS ---
STUDY: CT Abdomen And Pelvis W/ Contrast Injection 09/13/2021 3:10 PM REASON FOR EXAM: Male, 70 years old. ABDOMINAL PAIN postprandial epigastric pain TECHNIQUE: Transaxial images were obtained without oral contrast, and IV 100mL [id number] intravenous contrast. Technologist Notes diarrhea x 1 year, partial colectomy for colon cancer, hx stones, hypertension. Individualized dose optimization techniques were used for this CT. COMPARISON: None. FINDINGS: The visualized lung bases are unremarkable. The visualized portions of the heart are within normal limits. Stable hypodensity in the right lobe of the liver. Normal gallbladder and extrahepatic biliary system. Normal spleen. There is diffuse enlargement of the pancreas with karo-pancreatic edema suggesting acute pancreatitis. Normal bilateral adrenal glands. Non obstructive 8mm right renal parenchymal stones. No acute findings of the left kidney. Focal wall thickening of the antrum of stomach. This can suggest a gastritis. Normal small intestine. There are multiple colonic diverticula consistent with diverticulosis. Right hemicolectomy changes. There are calcifications of the abdominal aorta. This is consistent for atherosclerotic disease. There is no abdominal aortic aneurysm. Normal inferior vena cava. Subcentimeter mesenteric lymph nodes. Urinary bladder wall has wall thickening. This can be related to a partially contractile state. However, a cystitis is not excluded. Urinalysis should be performed in an effort to exclude cystitis. There is an umbilical hernia containing fat. There are diffuse degenerative changes of the visualized lumbar spine. There is bilateral neural foraminal stenosis at L4-5 and L5-S1. IMPRESSION: (NOT LISTED IN ORDER OF SIGNIFICANCE) There are right upper quadrant inflammatory changes. This can represent gastritis or acute pancreatitis. Urinary bladder wall has wall thickening. This can be related to a partially contractile state. However, a cystitis is not excluded. Urinalysis should be performed in an effort to exclude cystitis. There are multiple colonic diverticula consistent with diverticulosis. Other findings as above. Electronically Signed: Nathaniel Hurt MD at 15:14 EDT , CT/Abdomen/Pelvis WITH Contrast
== END 2021-09-13 23:59 | disposition home or self-care (01) ==
PROVIDERS: PCP Family Medicine; Referring Provider Family Medicine; Visit Provider Family Medicine
DX: R10.13 Epigastric pain (principal)
CPT/HCPCS: 74177; Q9967

== ENCOUNTER 2021-11-22 09:38 | Day surgery (SDC) | payer BC, SELFPAY ==
[2021-11-22] VITALS (8 sets, daily range): BP systolic 109–140; BP diastolic 74–80; PULSE 56–73; RESP 14–16; TEMP 36.1–36.8; O2SAT 95–97; BMI 25.3
[2021-11-22] MEDS: Lactated Ringers 1,000 ML 15 ML IV (10:08)
--- NOTE | 2021-11-22 10:12 | HP.PCM_ITS ---
History and Physical Date of Admission: 11/22/21 70 M who presents to the office today for one month f/u chronic postprandial watery diarrhea. Workup so far has revealed normal stool studies for infection or inflammation; normal gastrin level; Within 5-10 minutes of eating he has watery diarrhea. Only very rare formed stool. Worse with oil or fat. Poor appetite. Drinks protein shakes. He lost about 30 lbs in the past year. Has belly pain daily, rates from 2-8/10, constant across upper abd, worse after eating, never resolves. Diarrhea occas wakes him at night (but only if he ate later than usual). History of colon cancer in 2013; Dr. Hall did laparoscopic extended right hemicolectomy; pathology demonstrated invasive adenocarcinoma, surgical margins were free of disease.? Lymph nodes were negative no adjuvant therapy.? He has diverticular disease and history of diverticulitis.? He has upper abdominal pain chronically since diarrhea began.? CT abdomen and pelvis without contrast in August 2020 demonstrated diverticulitis.? CT in November 2020 demonstrated left ureteral calculus.? Ultrasound in February 2021 showed small gallbladder polyps.? HIDA scan was normal other than duodenal gastric reflux.? DDx includes gastritis, H pylori, gastric or duodenal ulcer, microcytic colitis, SCAD, infection, malignancy.? He was curious about EPI; we can try pancreatic enzymes; samples of Zenpep to take with meals for the next couple of days, he can let me know if that is effective.? If not effective then we can try colestipol for diarrhea.? Stool tests are ordered to check for infection.? Will update CBC and CMP today as well as inflammatory markers, LDH and gastrin level.? Follow-up in 1 month.? EGD and colonoscopy are scheduled in October, then follow-up [address] Rahman. Less gas in last few days since stopping benefiber. GasX no relief. Dr Brooke did colonoscopy December 2020, no biopsies Hx colon cancer in 2013, had partial bowel resection by Dr Brooke then. No adjuvant therapy. No heartburn. No dysphagia. No hematochezia or melena. CT August 2020 diverticulitis, CT November 2020 left ureteral calculus US February 2021 small gallbladder polyps HIDA July 2021 duodenal gastric reflux Labs--negative celiac.? No anemia.? Metabolic panel normal.? Lipase normal.? TSH elevated 5.82. Stool tests--normal calprotectin, normal elastase, negative for C diff/O&P/giardia/enteric pathogens, negative fecal lactoferrin 09/13/21 CT abd pel: IMPRESSION: (NOT LISTED IN ORDER OF SIGNIFICANCE) There are right upper quadrant inflammatory changes. This can represent gastritis or? acute pancreatitis. There is diffuse enlargement of the pancreas with karo-pancreatic edema suggesting acute pancreatitis. Urinary bladder wall has wall thickening. This can be related to a partially contractile state. However, a cystitis is not excluded. Urinalysis should be performed in an effort to exclude cystitis. There are multiple colonic diverticula consistent with diverticulosis. Other findings as above. ROS Const Constitutional: No fatigue ENT ENT: No difficulty swallowing Gastro GI: Positive for abdominal pain, bloating, diarrhea and excessive flatus; No belching, change in bowel habits, change in stool character, coffee ground emesis, constipation, cramping, heartburn, difficulty swallowing, feeling full early, incontinent of stools, Vomiting blood/hematemesis, Blood in stool, loose stools, Black,tarry stools, nausea/dyspepsia, pain with swallowing, vomiting or other Musc Musculoskeletal: Positive for joint pain, back pain, stiffness and Arthritis Skin Skin: No yellowing of the eye or itchy eyes Psych Psychiatric: No anxiety and No depression Endo Endocrine: No fatigue Aller/Imm Allergy/Immunologic: No itchy eyes Elfego/Lymp Hematologic/Lymphatic: No easy bleeding or easy bruising Quality Reporting Tobacco Screening ([facility] 138) Smoking Status: Former smoker Assessment and Plan Plan Details Other Medications: ?New: ? sucralfate 1 g PO QAC 90 tabs 0RF ? ? ? colestipol 1 g PO BID 60 tabs 1RF ? ? I have re-examined the patient. There are no clinical changes since date of exam.
--- NOTE | 2021-11-22 10:45 | IMM_PTH ---
PATIENT: ADITI WILLIAMSON LOC: EN U#:[id number] AGE/SX: 70/M ROOM: RE11/22/[address]: Dr. Adilson Rahman DO : 1950 BED: DIS: 11/22/2021 SPEC #: [id number] RECD: 11/23/21 08:27 STATUS: RASTA REQ #: [id number] DYLAN: 11/22/21 10:[address]: Adilson Rahman DEPT: IMMUNOHISTOCHEMISTRY RECD BY: Chey Iverson ENTERED: 11/23/21 08:28 SP TYPE: IMMUNO OTHR DR: Dr. Mainor Childress MD Tissues: C - Stomach, NOS Procedures: H Pylori (initial) PHYSICIAN & INSTITUTION [place] [id number] SPECIMEN INFORMATION: Tissue Source: C ? Gastric body biopsy Clinical Info: History of colon cancer, diarrhea Specimen Number: [id number] CPT code: 95501 METHODOLOGY: Deparaffinized sections of prefer/formalin-fixed tissue or PAP/DQ stained slides are incubated with monoclonal/polyclonal antibodies/oligonucleotide probes. Localization is made via biotin free immunoperoxidase method. Appropriate controls are performed and reacted as expected. Results on target cell population are indicated in the following table: RESULTS: ANTIBODY / CLONE RESULT Block C H Pylori (polyclonal) negative These tests were developed and their performance characteristics determined by [facility]. They may not have been cleared or approved by the U.S. Food and Drug Administration. The FDA has determined that such clearance or approval is not necessary. The above immunohistochemical/dualISH markers are ordered and reviewed by the Pathologist. INTERPRETATION: C. Gastric body, biopsy: Negative for Helicobacter pylori organisms. AM:bryce 11/24/2021
--- NOTE | 2021-11-22 10:45 | COLBX_PTH ---
PATIENT: ADITI WILLIAMSON LOC: EN U#:[id number] AGE/SX: 70/M ROOM: RE11/22/[address]: Dr. Adilson Rahman DO : 1950 BED: DIS: 11/22/2021 SPEC #: [id number] RECD: 11/22/21 13:56 STATUS: RASTA ROBERTSRakan #: [id number] DYLAN: 11/22/21 10:[address]: Adilson Rahman DEPT: SURGICAL PATHOLOGY RECD BY: Raisa Lopez ENTERED: 11/23/21 07:13 SP TYPE: COLON BX OTHR DR: Dr. Mainor Childress MD Tissues: A - Duodenum, NOS B - Gastric mucous membrane C - Gastric mucous membrane D - Esophagus, NOS E - Ileum, NOS F - COLON BIOPSY G - Ascending colon H - Sigmoid colon biopsy Procedures: Special Stain Group II Surgery Specimen Level IV Alcian Blue/PAS (control) HEADER OPERATION: [place]oscopy with biopsy[place] [place] PRE-OP DIAGNOSIS: History of colon cancer, diarrhea TISSUE SUBMITTED: A ? Duodenum biopsy, B ? Gastric pylorus biopsy, C ? Gastric body biopsy, D ? Distal esophagus biopsy, E ? Terminal ileum biopsy, F ? Random colon biopsy, G ? Ascending colon polyp biopsy, H ? Sigmoid colon biopsy MICROSCOPIC DIAGNOSIS A. Duodenum, biopsy: Gastric metaplasia. B. Gastric pylorus, biopsy: Mild chronic inflammation. C. Gastric body, biopsy: Mild chronic inflammation. See comment. D. Distal esophagus, biopsy: Gastroesophageal junctional mucosa with mild chronic inflammation. Focal changes of reflux. No evidence of goblet cell metaplasia. See comment. E. Terminal ileum, biopsy: No pathologic change. F. Colon, random biopsy: No pathologic change. G. Ascending colon polyp, biopsy: Tubular adenoma. H. Sigmoid colon, biopsy: Fragments of colonic mucosa with focal hyperplastic change. AM:bryce 11/24/2021 COMMENT C. The results of immunohistochemistry for Helicobacter pylori will be reported separately ([id number]). D. Alcian blue/PAS stain with matched control supports the above diagnosis. MICROSCOPIC DESCRIPTION Slides are reviewed. GROSS DESCRIPTION A - Received in fixative is one container labeled with the patient's name and designated duodenum biopsy. The specimen consists of multiple irregular fragments of light bah soft tissue that in aggregate measure 1 x 0.5 x 0.1 cm. The specimen is totally submitted in one cassette. B - Received in fixative is one container labeled with the patient's name and designated gastric pylorus biopsy. The specimen consists of one irregular fragment of light bah soft tissue that measures 0.5 x 0.3 x 0.1 cm. The specimen is totally submitted in one cassette. C - Received in fixative is one container labeled with the patient's name and designated gastric body biopsy. The specimen consists of two irregular fragments of light bah soft tissue that in aggregate measure 0.9 x 0.3 x 0.1 cm. The specimen is totally submitted in one cassette. D - Received in fixative is one container labeled with the patient's name and designated distal esophagus biopsy. The specimen consists of two irregular fragments of light bah soft tissue that in aggregate measure 1 x 0.3 x 0.1 cm. The specimen is totally submitted in one cassette. E - Received in fixative is one container labeled with the patient's name and designated terminal ileum biopsy. The specimen consists of two irregular fragments of light bah soft tissue that in aggregate measure 0.6 x 0.5 x 0.1 cm. The specimen is totally submitted in one cassette. F - Received in fixative is one container labeled with the patient's name and designated random colon biopsy. The specimen consists of multiple irregular fragments of light bah soft tissue that in aggregate measure 2 x 0.5 x 0.1 cm. The specimen is totally submitted in one cassette. G - Received in fixative is one container labeled with the patient's name and designated ascending colon polyp biopsy. The specimen consists of two irregular fragments of light bah soft tissue that in aggregate measure 0.7 x 0.4 x 0.1 cm. The specimen is totally submitted in one cassette. H - Received in fixative is one container labeled with the patient's name and designated sigmoid colon biopsy. The specimen consists of one irregular fragment of light bah soft tissue that measures 0.4 x 0.3 x 0.1 cm. The specimen is totally submitted in one cassette. / SJ:rg 11/23/2021 TC:5 CPT: 22465 x8, 88920
--- NOTE | 2021-11-22 11:12 | OP.EGD_ITS ---
Patient Name: Christopher Gross Procedure Date: 11/22/2021 9:58 AM Date of : 1950 Age: 70 Procedure: Upper GI endoscopy Indications: Epigastric abdominal pain Providers: Adilson Rahman DO Medicines: Monitored Anesthesia Care Patient Profile: This is a 70 year old male. Refer to note in patient chart for documentation of history and physical. Patient has symptoms of acute abdominal cramping. Complications: No immediate complications. Procedure: Pre-Anesthesia Assessment: - Prior to the procedure, a History and Physical was performed, and patient medications and allergies were reviewed. The patient is competent. The risks and benefits of the procedure and the sedation options and risks were discussed with the patient. All questions were answered and informed consent was obtained. Patient identification and proposed procedure were verified by the physician in the pre-procedure area. Mental Status Examination: alert and oriented. Airway Examination: normal oropharyngeal airway and neck mobility. Respiratory Examination: clear to auscultation. CV Examination: normal. Prophylactic Antibiotics: The patient does not require prophylactic antibiotics. Prior Anticoagulants: The patient has taken no previous anticoagulant or antiplatelet agents. ASA Grade Assessment: II - A patient with mild systemic disease. After reviewing the risks and benefits, the patient was deemed in satisfactory condition to undergo the procedure. The anesthesia plan was to use moderate sedation / analgesia (conscious sedation). Immediately prior to administration of medications, the patient was re-assessed for adequacy to receive sedatives. The heart rate, respiratory rate, oxygen saturations, blood pressure, adequacy of pulmonary ventilation, and response to care were monitored throughout the procedure. The physical status of the patient was re-assessed after the procedure. After obtaining informed consent, the endoscope was passed under direct vision. Throughout the procedure, the patient's blood pressure, pulse, and oxygen saturations were monitored continuously. The colonoscope was introduced through the mouth, and advanced to the second part of duodenum. The upper GI endoscopy was accomplished without difficulty. The patient tolerated the procedure well. Moderate Sedation: Moderate (conscious) sedation was personally administered by an anesthesia professional. The following parameters were monitored: oxygen saturation, heart rate, blood pressure, respiratory rate, EKG, adequacy of pulmonary ventilation, and response to care. Scope In: 10:28:25 AM Scope Out: 10:38:22 AM Total Procedure Duration Time 0 hours 9 minutes 57 seconds Findings: The Z-line was irregular and was found 39 cm from the incisors. Biopsies were taken with a cold forceps for histology. Verification of patient identification for the specimen was done. Estimated blood loss was minimal. A few localized, 5 mm non-bleeding erosions were found in the gastric body. There were no stigmata of recent bleeding. Biopsies were taken with a cold forceps for histology. Verification of patient identification for the specimen was done. Estimated blood loss was minimal. A few localized, 5 mm non-bleeding erosions were found at the pylorus. There were no stigmata of recent bleeding. Biopsies were taken with a cold forceps for histology. Verification of patient identification for the specimen was done. Estimated blood loss was minimal. Moderate inflammation characterized by congestion (edema), granularity and aphthous ulcerations was found in the duodenal bulb. Biopsies were taken with a cold forceps for histology. Biopsies were taken with a cold forceps for histology. Verification of patient identification for the specimen was done. Estimated blood loss was minimal. Impression: - Z-line irregular, 39 cm from the incisors. Biopsied. - Non-bleeding erosive gastropathy. Biopsied. - Non-bleeding erosive gastropathy. Biopsied. - Duodenitis. Biopsied. Recommendation: - Discharge patient to home. - Resume previous diet. - Continue present medications. - Await pathology results. Procedure Code(s): --- Professional --- 95800, Esophagogastroduodenoscopy, flexible, transoral; with biopsy, single or multiple CPT copyright 2017 [employer]. All rights reserved. The codes documented in this report are preliminary and upon fiber analyst review may be revised to meet current compliance requirements. Adilson Rahman DO 11/22/2021 11:11:10 AM This report has been signed electronically. Number of Addenda: 1 Note Initiated On: 11/22/2021 9:58 AM Addendum Number: 1 Addendum Date: 03/01/2022 6:06:47 AM MAC was used as sedation for this procedure. Adilson Rahman DO 03/01/2022 6:06:51 AM This report has been signed electronically.
--- NOTE | 2021-11-22 11:12 | OP.CCLET_ITS ---
03/01/2022 Mainor Childress [address] [place] [address] Re : Upper GI endoscopy procedure for Christopher Gross Dear Dr. Childress This procedure was performed on Monday, November 22, 2021. My impressions and recommendations are as follows: Impressions : - Z-line irregular, 39 cm from the incisors. Biopsied. - Non-bleeding erosive gastropathy. Biopsied. - Non-bleeding erosive gastropathy. Biopsied. - Duodenitis. Biopsied. Recommendations : - Discharge patient to home. - Resume previous diet. - Continue present medications. - Await pathology results. My findings are described in the full procedure note, which is enclosed. If I can be of further assistance, please feel free to contact me at . Sincerely, Adilson Rahman, 11/22/2021 11:11:10 AM This report has been signed electronically.
--- NOTE | 2021-11-22 11:19 | OP.COLON_ITS ---
Patient Name: Christopher Gross Procedure Date: 11/22/2021 10:38 AM Date of : 1950 Age: 70 Procedure: Colonoscopy Indications: Abdominal pain in the left lower quadrant, Chronic diarrhea, Personal history of malignant neoplasm of the colon Providers: Adilson Rahman DO Medicines: Monitored Anesthesia Care Patient Profile: This is a 70 year old male. Refer to note in patient chart for documentation of history and physical. Patient has symptoms of acute abdominal cramping. Last Colonoscopy: 1 year ago. Complications: No immediate complications. Procedure: Pre-Anesthesia Assessment: - Prior to the procedure, a History and Physical was performed, and patient medications and allergies were reviewed. The patient is competent. The risks and benefits of the procedure and the sedation options and risks were discussed with the patient. All questions were answered and informed consent was obtained. Patient identification and proposed procedure were verified by the physician in the pre-procedure area. Mental Status Examination: alert and oriented. Airway Examination: normal oropharyngeal airway and neck mobility. Respiratory Examination: clear to auscultation. CV Examination: normal. Prophylactic Antibiotics: The patient does not require prophylactic antibiotics. Prior Anticoagulants: The patient has taken no previous anticoagulant or antiplatelet agents. ASA Grade Assessment: II - A patient with mild systemic disease. After reviewing the risks and benefits, the patient was deemed in satisfactory condition to undergo the procedure. The anesthesia plan was to use moderate sedation / analgesia (conscious sedation). Immediately prior to administration of medications, the patient was re-assessed for adequacy to receive sedatives. The heart rate, respiratory rate, oxygen saturations, blood pressure, adequacy of pulmonary ventilation, and response to care were monitored throughout the procedure. The physical status of the patient was re-assessed after the procedure. After I obtained informed consent, the scope was passed under direct vision. Throughout the procedure, the patient's blood pressure, pulse, and oxygen saturations were monitored continuously. The colonoscope was introduced through the anus and advanced to the terminal ileum. The colonoscopy was performed without difficulty. The patient tolerated the procedure well. The quality of the bowel preparation was fair. Scope In: 10:41:03 AM Scope Withdrawal Time 0 hours 16 minutes 25 seconds Scope Out: 11:02:13 AM Total Procedure Duration Time 0 hours 21 minutes 10 seconds Findings: The perianal and digital rectal examinations were normal. A 5 mm polyp was found in the ascending colon. The polyp was sessile. The polyp was removed with a cold snare. Resection and retrieval were complete. Estimated blood loss was minimal. Ileocolonic anastomosis was seen and appeared to be in good health without any ulceration. An area of moderately congested mucosa was found in the recto-sigmoid colon and in the sigmoid colon. Biopsies were taken with a cold forceps for histology. Verification of patient identification for the specimen was done. Estimated blood loss was minimal. There was also significant rectosigmoid to descending colon diverticular disease. The terminal ileum appeared normal. Biopsies were taken with a cold forceps for histology. Verification of patient identification for the specimen was done. Estimated blood loss was minimal. Impression: - Preparation of the colon was fair. - One 5 mm polyp in the ascending colon, removed with a cold snare. Resected and retrieved. - Congested mucosa in the recto-sigmoid colon and in the sigmoid colon. Biopsied. - The examined portion of the ileum was normal. Biopsied. Recommendation: - Discharge patient to home. - Resume previous diet. - Continue present medications. - Await pathology results. - Repeat colonoscopy in 3 years for surveillance. Procedure Code(s): --- Professional --- 61835, Colonoscopy, flexible; with removal of tumor(s), polyp(s), or other lesion(s) by snare technique 26128, 59, Colonoscopy, flexible; with biopsy, single or multiple CPT copyright 2017 [employer]. All rights reserved. The codes documented in this report are preliminary and upon medical biller coder review may be revised to meet current compliance requirements. Adilson Rahman DO 11/22/2021 11:18:44 AM This report has been signed electronically. Number of Addenda: 1 Note Initiated On: 11/22/2021 10:38 AM Addendum Number: 1 Addendum Date: 03/01/2022 6:07:02 AM MAC was used as sedation for this procedure. Adilson Rahman DO 03/01/2022 6:07:06 AM This report has been signed electronically.
--- NOTE | 2021-11-22 11:20 | OP.CCLET_ITS ---
03/01/2022 Mainor Childress [address] [place] [address] Re : Colonoscopy procedure for Christopher Gross Dear Dr. Childress This procedure was performed on Monday, November 22, 2021. My impressions and recommendations are as follows: Impressions : - Preparation of the colon was fair. - One 5 mm polyp in the ascending colon, removed with a cold snare. Resected and retrieved. - Congested mucosa in the recto-sigmoid colon and in the sigmoid colon. Biopsied. - The examined portion of the ileum was normal. Biopsied. Recommendations : - Discharge patient to home. - Resume previous diet. - Continue present medications. - Await pathology results. - Repeat colonoscopy in 3 years for surveillance. My findings are described in the full procedure note, which is enclosed. If I can be of further assistance, please feel free to contact me at . Sincerely, Adilson Rahman, 11/22/2021 11:18:44 AM This report has been signed electronically.
[2021-11-22 12:44] LABS: Erythrocyte Sedimentation Rate 12 mm/hr (0-20)
[2021-11-22 13:22] LABS: Amylase 66 U/L (25-115); CRP < 2.90 mg/L (0.0-3.0); Lipase 153 U/L (73-393)
[2021-11-23 13:08] LABS: Anti-Centromere B Ab <0.2 AI (0.0-0.9); Anti-Chromatin <0.2 AI (0.0-0.9); Anti-Jo <0.2 AI (0.0-0.9); Anti-Scleroderma-70 AB <0.2 AI (0.0-0.9); RNP Ab <0.2 AI (0.0-0.9); SJOGREN'S Anti-SS-A test < 0.2 AI (0.0-0.9); SJOGREN'S Anti-SS-B test < 0.2 AI (0.0-0.9); Smith Ab <0.2 AI (0.0-0.9)
[2021-11-23 15:07] LABS: Endomysial Antibody IgA Negative (Negative); Immunoglobulin A 276 mg/dL (61-437)
[2021-11-24 15:54] LABS: Anti-dsDNA Ab <1 IU/mL (0-9)
[2021-11-25 16:38] LABS: Carbohydrate Ag 19-9 2261 < 2 U/mL (0-35); t-Transglutaminase IgA <2 U/mL (0-3)
[2021-11-26 11:08] LABS: Albumin 3.2 g/dL (2.9-4.4); Alpha-1-Globulins 0.2 g/dL (0.0-0.4); Alpha-2-Globulins 0.8 g/dL (0.4-1.0); Cytoplasmic Ab (C-ANCA) <1:20 titer (Neg:<1:20); Immunoglobulin A 243 mg/dL (61-437); Immunoglobulin G 1047 mg/dL (603-1613); Immunoglobulin M 27 mg/dL (20-172); PROEL- TOTAL PROTEIN 6.3 g/dL (6.0-8.5)
[2021-11-26 17:44] LABS: Gastrin, Serum 63 pg/mL (0-115); IMMUNOFIXATION RESULT,S Comment: (.); Immunoglobulin E 45 IU/mL (6-495); Perinuclear Ab (P-ANCA) <1:20 titer (Neg:<1:20)
== END 2021-11-22 11:56 | disposition home or self-care (01) ==
LOC: EN 09:39 → AC 09:41
PROVIDERS: PCP Family Medicine; Referring Provider Family Medicine; Visit Provider Internal Medicine Gastroenterology
PROC: 0DJD8ZZ Inspection of Lower Intestinal Tract, Via Natural or Artificial Opening Endoscopic (ICD-10-PCS; CPT 45378; principal; 2021-11-22 10:40)
DX: D12.2 Benign neoplasm of ascending colon (principal); K52.9 Noninfective gastroenteritis and colitis, unspecified; R10.32 Left lower quadrant pain; K63.5 Polyp of colon; K29.80 Duodenitis without bleeding; Z87.891 Personal history of nicotine dependence; Z85.038 Personal history of other malignant neoplasm of large intestine
CPT/HCPCS: 45385; 45380; 43239; 82150; 82784; 82785; 82941; 83516; 83690; 84165; 85652; 86140; 86225; 86235; 86255; 86256; 86301; 86334; 88305; 88313; 88342; J7120; J2405

== ENCOUNTER → 2021-12-01 | Outpatient (CLI) | payer BC, SELFPAY ==
--- NOTE | 2021-12-01 06:14 | MRI_ITS ---
EXAM: MR ABDOMEN WITHOUT INTRAVENOUS CONTRAST, MRCP PROTOCOL CLINICAL INDICATION: acute recurrent pancreatitis/weight loss -- 40 lb weight loss TECHNIQUE: Multiplanar and multisequence MR images of the abdomen without intravenous contrast obtained with MRCP sequence. Three-dimensional post-processing reconstructions were performed. This report was created using [employer] report generation technology. COMPARISON: CT abdomen and pelvis September 13, 2021 FINDINGS: LOWER THORAX: Unremarkable. No pleural effusion. LIVER: Stable 7 mm cyst noted within hepatic segment 4. GALLBLADDER AND BILE DUCTS: Unremarkable. No gallstones. No gallbladder distention or wall edema. No intra- or extrahepatic biliary ductal dilation. No choledochal filling defect. PANCREAS: 9 mm cyst noted within the head of the pancreas. No pancreatic duct dilatation. No evidence of acute pancreatitis SPLEEN: Unremarkable. Non-enlarged. ADRENALS: Unremarkable. No nodules. KIDNEYS AND URETERS: Bilateral renal cysts are noted. No specific follow-up indicated. Normal renal size and position. No hydronephrosis. INTRAPERITONEAL SPACE: Unremarkable. No ascites or other fluid collection. VASCULATURE: Unremarkable. Abdominal aorta is non-dilated. LYMPH NODES: No enlarged lymph nodes. MRI/MRCP Abdomen without Contrast IMPRESSION: 1. 9 mm cyst within the pancreatic head. 2. No evidence of common bile duct stone or obstruction. Electronically Signed: Duglas Hanson MD at 9:54 EDT ,
== END | disposition home or self-care (01) ==
LOC: MRI 06:14
PROVIDERS: PCP Family Medicine; Visit Provider Internal Medicine Gastroenterology
DX: K85.90 Acute pancreatitis without necrosis or infection, unspecified (principal); K86.2 Cyst of pancreas; N28.1 Cyst of kidney, acquired; R63.4 Abnormal weight loss; K52.9 Noninfective gastroenteritis and colitis, unspecified
CPT/HCPCS: 74181

== ENCOUNTER → 2022-02-17 | Outpatient (CLI) | payer BC, SELFPAY | END | disposition home or self-care (01) | PROVIDERS: PCP Family Medicine; Referring Provider Internal Medicine Gastroenterology; Visit Provider Internal Medicine Gastroenterology | DX: K52.9 Noninfective gastroenteritis and colitis, unspecified (principal); K85.90 Acute pancreatitis without necrosis or infection, unspecified | CPT/HCPCS: 36415 ==

== ENCOUNTER → 2022-05-02 | Outpatient (CLI) | payer BC, SELFPAY ==
[2022-05-02 09:48] LABS: Rubella IgG Reactive (Nonreactive)
[2022-05-04 22:06] LABS: HEPATITIS B SURFACE AG Negative (Negative); Hep C Antibodies <0.1 s/co ratio (0.0-0.9); Hepatitis A IgM Antibody Negative (Negative); Hepatitis B Core AB IgM Negative (Negative); QNTFERON TB Mitogen Value > 10.00 IU/mL (.); QNTFERON TB Nil Value 0 IU/mL (.); QNTFERON TB1+ Ag Value 0 IU/mL (.); QNTFERON TB2+ Ag Value 0 IU/mL (.)
[2022-05-04 22:16] LABS: B. pertussis IgG 2.48 index (0.00-0.94); Mumps Antibody, IgM 1.28 AU (0.00-0.79); QNTIFERON TB Positive Criteria Negative (Negative); V-Zoster IgG (Immunity) > 4000 index (Immune >165)
== END | disposition home or self-care (01) ==
PROVIDERS: PCP Family Medicine; Referring Provider Internal Medicine Gastroenterology; Visit Provider Internal Medicine Gastroenterology
DX: K50.90 Crohn's disease, unspecified, without complications (principal)
CPT/HCPCS: 36415; 80074; 86480; 86615; 86735; 86762; 86787

== ENCOUNTER 2022-06-17 09:17 | Emergency (ER) | payer BC, SELFPAY ==
[2022-06-17 09:18] VITALS: BP 162/78; PULSE 77; RESP 15; TEMP 36.1; O2SAT 99; BMI 21.2
--- NOTE | 2022-06-17 09:33 | CT_ITS ---
STUDY: CT ABDOMEN AND PELVIS WITH CONTRAST REASON FOR EXAM: Male, 71 years old. Abdominal pain. History of Crohn''s disease, pancreatitis and colon cancer. Prior hemicolectomy. RADIATION DOSAGE (If Supplied By Facility): CTDIvol = ( 16.75 ) mGy, DLP = ( 528.37 ) mGycm TECHNIQUE: Transaxial images were obtained from the dome of the diaphragm to the symphysis pubis without oral contrast. IV 100mL Isovue-300 was administered. Sagittal and coronal images were reconstructed. Individualized dose optimization techniques were used for this CT. COMPARISON: Comparison is made with prior study dated 09/13/2021. FINDINGS: The visualized lung bases are unremarkable. Coronary artery calcification. 1 cm cyst in the anterior aspect of the right lobe of liver. Normal gallbladder and extrahepatic biliary system. Normal spleen. Normal pancreas. Prominence of the soft tissues surrounding the superior mesenteric artery extending into the region of the emily hepatis. This may represent adenopathy. Normal bilateral adrenal glands. There is an 8.8 mm nonobstructive calculus in the lower pole calyx of the right kidney. There is a 2.3 cm septated cyst in the mid and inferior pole of the right kidney. Normal left kidney. There is a small hiatal hernia. Normal small intestine. There are scattered colonic diverticula consistent with diverticulosis. The patient is status post right hemicolectomy. There is diffuse atherosclerotic calcification of the abdominal aorta, without a demonstrated aneurysm. Normal inferior vena cava. Normal retroperitoneum. Normal urinary bladder. There is enlargement of the prostate gland. The prostate measures 4.2 cm x 4.1 cm. There is a small umbilical hernia containing fat. There are diffuse degenerative changes of the visualized lumbar spine. CT/Abdomen/Pelvis W IV Cont ONLY IMPRESSION: Soft tissue prominence in the region of the superior mesenteric artery at its origin extending into the region of the emily hepatis. Localized adenopathy should be ruled out. Status post right hemicolectomy. Sigmoid diverticulosis. Small right renal cyst and nonobstructive calculus in the right kidney. Electronically Signed: Flaco Peña MD at 10:52 EST ,
--- NOTE | 2022-06-17 09:34 | EDS_ITS ---
HPI HPI - GI History of Present Illness Chief Complaint: Abd Pain Narrative Narrative: 71-year-old male with abdominal pain. He states he has had this for years. Over the last 2 years it has been worse. He does have a history of colon cancer, partial colon resection, kidney stones, pancreatitis, recent diagnosis of Crohn's disease. Patient states that over the last evening he has been vomiting all night. He has not had a fever. He states his abdominal pain is now very severe. Dr. Rahman did do upper endoscopy and did diagnose him with Crohn's disease. He has been on prednisone for about 3 months he states. He has not any sandra pain medication. He denies urinary complaints. [facility] Medical History Abrasion Adenocarcinoma, colon Anemia Atherosclerotic heart disease of [place] coronary artery without angina pectoris Bilateral kidney stones Cancer Cardiology follow-up encounter Chronic diarrhea Diverticulosis Duodenogastric reflux Essential (primary) hypertension Former smoker History of colon cancer History of diverticulitis History of echocardiogram History of restless legs syndrome History of stress test Hyperlipidemia Redness of skin Sleep apnea Wears dentures Wears glasses Home Medications nitroglycerin 0.4 mg sublingual tablet 0.4 mg sublingual Q5-15M PRN CP 07/07/20 [History Last Taken Unknown] quinapril 5 mg tablet 5 mg PO DAILY #90 tabs 07/07/21 [Rx Last Taken Unknown] gsijxv-gkiyiezq-avgfaio 36,000-114,000-180,000 unit capsule,delay rel (Creon) 3 cap PO TID 30 days #270 caps 02/17/22 [Rx Last Taken Unknown] obeticholic acid 10 mg tablet (Ocaliva) 10 mg PO DAILY #30 tabs 02/17/22 [Rx Last Taken Unknown] eluxadoline 100 mg tablet (Viberzi) 100 mg PO BID #60 tabs 04/19/22 [Rx Last Taken Unknown] risankizumab-rzaa 360 mg/2.4 mL (150 mg/mL) subcut wearable injector (Skyrizi) 360 mg (2.4 mL) subcut Q8W #2.4 mL 05/06/22 [Rx Last Taken Unknown] prednisone 10 mg tablet 30 mg PO DAILY #90 tabs 05/26/22 [Rx Last Taken Unknown] hydrocodone-acetaminophen 5-325mg 5mg-325mg 1 tab PO Q6H PRN pain 3 days #12 tabs 06/17/22 [Rx Last Taken Unknown] ondansetron 4 mg disintegrating tablet 4 mg PO Q8H PRN nausea and vomiting #14 tabs 06/17/22 [Rx Last Taken Unknown] Allergy/AdvReac Type Severity Reaction Status Date / Time No Known Allergies Allergy Verified 06/17/22 09:21 Surgical History H/O hemicolectomy History of left heart catheterization (04/10/17) Hx of lithotripsy (~11/2020) Social History Smoking Status: Former smoker how long ago did patient quit smokin years ago alcohol intake: current alcohol intake frequency: holidays/special occasions only Alcohol type: beer substance use type: does not use caffeine: No ROS ROS ED Constitutional Constitutional ED: Denies chills or fever(s) ENT ENT ED: Denies rhinorrhea or sore throat Cardiovascular Cardiovascular: Denies chest pain or palpitations Respiratory/Chest Respiratory/Chest: Denies cough or dyspnea Gastrointestinal Gastrointestinal: Reports abdominal pain, nausea and vomiting; Denies constipation, diarrhea or melena Genitourinary Genitourinary ED: Denies dysuria or hematuria Musculoskeletal Musculoskeletal: Denies arthralgias Integumentary Denies abscess Neurologic Neurologic: Denies headache(s) Psychiatric Psychiatric: Denies anxiety or depression Endocrine Endocrinology: Denies polydipsia or polyphagia EXAM Physical Exam Const Vital Signs: 06/17/22 09:18 06/17/22 11:35 06/17/22 12:05 Temperature 97 F L Temperature Source Temporal Pulse Rate 77 47 L Respiratory Rate 15 16 16 Blood Pressure 162/78 H 152/83 H Blood Pressure Mean 106 106 Pulse Ox 99 98 Oxygen Delivery Method Room Air Room Air Positive well nourished General Appearance ED: NAD; Negative for pallor HEENT Reports TM's clear and moist mucous membranes normocephalic and atraumatic Tympanic Membrane ED: Yes TM's clear Eyes PERRL and EOMs intact bilaterally Resp normal respiratory effort and clear to auscultation bilaterally Auscultation: Negative for rales, rhonchi or wheezes Cardio regular rate and regular rhythm GI Palpation: tender epigastric and periumbilical Back/Spine no CVA tenderness Neuro CN's II-XII intact bilaterally Sensorium / Orientation: alert Motor Exam: strength 5/5 throughout Psych mental status grossly normal and thought process normal Skin no wounds General Skin Exam: Negative for jaundice or pallor MDM MDM MDM Narrative Medical decision making narrative: 71-year-old male presenting with acute exacerbation of chronic abdominal pain. Recently diagnosed with Crohn's disease. He is currently on prednisone. I did speak with Dr. Rahman and he wants me to add inflammatory markers including CRP and ESR due to his history of inflammatory bowel disease. We will obtain CBC except for white blood cell count elevation, hemoglobin, platelets. Patient has history of pancreatitis, Crohn's disease, colon cancer status postresection and we will obtain a CMP to check his liver function, renal function, electrolytes, glucose as he is recently been on steroids. Lipase will be added due to his history of pancreatitis. Urinalysis will be obtained to assess for infection and the patient does have a history of kidney stones. IV line was established. Patient was medicated with 0.5 mg of Dilaudid and 4 mg of Zofran. Patient is given a liter of normal saline. Differential currently is pretty broad. This could be a Crohn's flare, pancreatitis, kidney stone, gastritis, colon cancer, bowel obstruction, bowel perforation. Patient's CBC returned with a white blood cell count of 17.1 however he has been vomiting and has been on prednisone. Motorcycle. His hemoglobin is slightly hemoconcentrated at 17.8. Creatinine 1.24 which is near baseline. Electrolytes unremarkable. Patient's BUN/creatinine ratio slightly elevated at 24.2. Patient was given a liter of IV fluids. Inflammatory markers including CRP and ESR are both normal. Urinalysis shows no evidence of infection or occult blood. On reevaluation patient is having increased pain and was given another dose of 0.[address] of the abdomen pelvis with IV contrast was obtainedSoft tissue prominence in the region of the superior mesenteric artery at its origin extending into the region of the emily hepatis.? This showed localized adenopathy. Patient was again discussed with Dr. Rahman and he did recommend if the patient needed that he could be admitted for pain control. This does not appear to be a Crohn's flare. We have ruled out major causes for abdominal pain at this point. Discussed with patient at length and did sales counselor him that this was acute on chronic condition and he likely will need pain management involvement if he continues to have pain is severe. He does not want to stay in the hospital. At this point I will have the patient follow-up with his primary care physician Dr. Rahman as needed. Patient states he is already reached out to [facility] to be assessed there as well. Patient was given a prescription for [place] and prescription for Zofran, but I did sales counselor him that if he needs long-term pain control he will need to either have his primary care physician provide this or be referred to a spray painting machine operator. He acknowledges understanding. Impression: 1. Abdominal pain 2. Nausea/vomiting 3. History of Crohn's disease 4. History of pancreatitis Lab Data Labs: Laboratory Results - last 24 hr 06/17/22 06/17/22 06/17/22 09:47 09:47 10:47 WBC 17.1 H RBC 5.68 Hgb 17.8 H Hct 52.6 MCV 92.6 MCH 31.3 MCHC 33.8 RDW Std Deviation 48.1 H RDW Coeff of Stephen 13.9 Plt Count 229 MPV 9.2 Immature Gran % (Auto) 0.600 Neut % (Auto) 85.6 H Lymph % (Auto) 4.3 L [place] % (Auto) 9.3 Eos % (Auto) 0.0 Baso % (Auto) 0.2 Absolute Neuts (auto) 14.7 H Absolute Lymphs (auto) 0.74 L Nucleated RBC % 0 Differential Comment COMMENT Diff Path Review May foll ESR 6 Sodium 136 Potassium 4.4 Chloride 97 L Carbon Dioxide 27.0 Anion Gap 12 BUN 30 H Creatinine 1.24 Estim Creat Clear Calc 49.08 Est GFR (MDRD) Af Amer 74 Est GFR (MDRD) Non-Af 61 BUN/Creatinine Ratio 24.2 H Glucose 181 H Calcium 10.8 H Total Bilirubin 1.00 AST 22 ALT 84 H Alkaline Phosphatase 62 C-React Prot Ext Range < 2.90 Total Protein 7.5 Albumin 3.6 Globulin 3.9 Albumin/Globulin Ratio 0.9 Lipase 172 Urine Color Yellow Urine Clarity Clear Urine pH 6.5 Ur Specific [place] 1.010 Urine Protein Negative Urine Glucose (UA) Normal Urine Ketones 50 H Urine Occult Blood Negative Urine Nitrite Negative Urine Bilirubin Negative Urine Urobilinogen Normal Ur Leukocyte Esterase Negative Urine RBC 0 SEEN Urine WBC 0-5 SEEN Ur Squamous Epith Cells 0 SEEN Urine Bacteria RARE Urine Mucus 0 SEEN Radiography Diagnostic Testing: Clinical Impression(s) from Imaging Studies Abdomen/Pelvis CT 06/17/22 09:33 IMPRESSION: Soft tissue prominence in the region of the superior mesenteric artery at its origin extending into the region of the emily hepatis. Localized adenopathy should be ruled out. Status post right hemicolectomy. Sigmoid diverticulosis. Small right renal cyst and nonobstructive calculus in the right kidney. Electronically Signed: Flaco Peña MD at 10:52 EST , Discharge Plan Triage Chief Complaint: Abd Pain ED Provider: Héctor Robison Dx/Rx/DC Orders Instructions: ED Abdominal Pain Unkn Cause Male... Prescriptions: New hydrocodone-acetaminophen 5-325 mg tablet 1 tab PO Q6H PRN (Reason: pain) 3 Days Qty: 12 0RF ondansetron 4 mg tablet,disintegrating 4 mg PO Q8H PRN (Reason: nausea and vomiting) Qty: 14 0RF No Action nitroglycerin 0.4 mg tablet, sublingual 0.4 mg SUBLINGUAL Q5-15M PRN (Reason: CP) Label Comments: DISSOLVE ONE TABLET UNDER THE TONGUE EVERY 5 MINUTES NEEDED FOR CHEST PAIN. DO NOT EXCEED A TOTAL OF 3 DOSES quinapril 5 mg tablet 5 mg PO DAILY Qty: 90 3RF Ocaliva 10 mg tablet 10 mg PO DAILY Qty: 30 1RF Creon 36,000-114,000- 180,000 unit capsule,delayed release(DR/EC) 3 cap PO TID 30 Days Qty: 270 1RF Rx Instructions: administer with meals and/or snacks Viberzi 100 mg tablet 100 mg PO BID Qty: 60 2RF Rx Instructions: must administer with a meal/food Skyrizi 360 mg/2.4 mL (150 mg/mL) wearable injector 360 mg subcut Q8W Qty: 2.4 6RF prednisone 10 mg tablet 30 mg PO DAILY Qty: 90 1RF Primary Care Provider: Mainor Childress Referrals: Mainor Childress MD [Primary Care Provider] - Adilson Rahman DO [Med Staff - Active Staff] - 3-5 Days Disposition Disposition: Home, Self Care
[2022-06-17] MEDS: Ondansetron 4 MG/2 ML Vial IV (09:55)
[2022-06-17] MEDS: 0.9% Normal Saline 1,000 ML 1000 ML IV (09:56)
[2022-06-17] MEDS: HYDROmorphone 0.5 MG/0.5 ML SYRINGE IV ×2 (09:56→11:59)
[2022-06-17 09:58] LABS: Absolute Lymphocyte Count 0.74 X10^3/uL (0.83-4.51); Absolute Neutrophil Count 14.7 X10^3/uL (2.0-7.7); Basophil# 0.04 X10^3/uL; Basophil% 0.2 % (0-1); Hematocrit 52.6 % (40-54); Hemoglobin 17.8 g/dL (13.0-16.5); Lymphocyte # 0.74 X10^3/ul (0.83-4.51); Lymphocyte % 4.3 % (19-41); Mean Corp Hgb Conc 33.8 g/dL (32-36); Mean Corpuscular Hgb 31.3 pg (27.0-32.0); Mean Corpuscular Volume 92.6 fL (80-94); Mean Platelet Vol. 9.2 fl (6.2-12.0); Monocyte% 9.3 % (0-10); NRBC Flagged by Analyzer 0 % (0-5); Neutrophil # 14.65 X10^3/uL (2.7-7.7); Neutrophil % 85.6 % (47-70); POSITIVE DIFFERENTIAL YES; Platelet Count 229 K/mm3 (150-450); RBC Distribution Width CV 13.9 % (11.6-14.6); RBC Distribution Width SD 48.1 fl (35.1-43.9); Red Blood Count 5.68 M/mm3 (4.6-6.2); White Blood Count 17.1 K/mm3 (4.4-11.0)
[2022-06-17 10:12] LABS: ALB/GLOB Ratio 0.9 RATIO (0.9-2.4); AST(SGOT) 22 U/L (15-37); Alanine Aminotransfer ALT/SGPT 84 U/L (16-61); Albumin, Serum 3.6 g/dL (3.2-5.0); Alkaline Phosphatase 62 U/L (45-117); Anion Gap 12 (5-15); BUN 30 mg/dL (7-18); BUN/Creat Ratio 24.2 RATIO (10-20); CRP < 2.90 mg/L (0.0-3.0); Calcium,Total 10.8 mg/dL (8.5-10.1); Chloride 97 mmol/L (98-107); Creatinine, Serum 1.24 mg/dL (0.70-1.30); EST Glomerular Filtration Rate 61 mL/min (>60); Est Glom Filt Rate - Afr Amer 74 mL/min (>60); Estimated Creatinine Clearance 49.08 ml/min; Globulin 3.9 g/dL (2.2-4.2); Glucose 181 mg/dL (74-106); Lipase 172 U/L (73-393); Potassium 4.4 mmol/L (3.5-5.1); Protein, Total 7.5 g/dL (6.4-8.2); Sodium Level 136 mmol/L (136-145)
[2022-06-17 10:33] LABS: Differential Indicated SCAN CRITERIA MET
[2022-06-17 10:44] LABS: Erythrocyte Sedimentation Rate 6 mm/hr (0-20)
[2022-06-17 10:51] LABS: Mucous, Urine 0 SEEN /hpf (<or=2+); Red Blood Cells-Urine 0 SEEN /hpf (0-5); Squamous Epithelial Cells - UA 0 SEEN /hpf (0-5)
[2022-06-17 10:55] LABS: Color, Urine Yellow (Yellow); Glucose, Dipstick Normal (Normal); Ketone-Dipstick 50 mg/dl (Negative); Leukocyte Esterase-Dipstick Negative /ul (Negative); Nitrite-Dipstick Negative (Negative); Occult Blood-Urine Negative /ul (Negative); Protein-Dipstick Negative (Negative); Urine Bilirubin Dipstick Negative (Negative); Urine Clarity Clear (Clear); Urine Urobilinogen Normal (Normal); Urine pH 6.5 (5.0 - 8.0)
[2022-06-17 11:07] LABS: Bacteria RARE /hpf (None Seen); White Blood Cells 0-5 SEEN /hpf (0-5)
[2022-06-17 11:35] VITALS: RESP 16
[2022-06-17 12:05] VITALS: BP 152/83; PULSE 47; RESP 16; O2SAT 98
[2022-06-17 12:44] VITALS: BP 175/81; PULSE 47; RESP 18; O2SAT 94
[2022-06-21 09:39] LABS: Pathologist Review Reviewed
== END 2022-06-17 13:30 | disposition home or self-care (01) ==
PROVIDERS: Emergency Provider Student in an Organized Health Care Education/Training Program; PCP Family Medicine; Visit Provider Student in an Organized Health Care Education/Training Program
DX: R11.2 Nausea with vomiting, unspecified (principal); K50.90 Crohn's disease, unspecified, without complications; R10.9 Unspecified abdominal pain; Z87.891 Personal history of nicotine dependence; I25.10 Atherosclerotic heart disease of native coronary artery without angina pectoris; I10 Essential (primary) hypertension; E78.5 Hyperlipidemia, unspecified; Z85.038 Personal history of other malignant neoplasm of large intestine
CPT/HCPCS: 74177; 80053; 81001; 83690; 85025; 85652; 86140; 99283; J7030; Q9967; A4216; J2405

== ENCOUNTER → 2022-07-29 | Outpatient (CLI) | payer BC, SELFPAY ==
[2022-07-29 11:45] LABS: BNP,B-Type NATRIURETIC PEPTIDE 83.7 pg/mL (0-100)
[2022-07-29 11:46] LABS: Anion Gap 9 (5-15); BUN 21 mg/dL (7-18); BUN/Creat Ratio 31.2 RATIO (10-20); Calcium,Total 9.6 mg/dL (8.5-10.1); Chloride 106 mmol/L (98-107); Creatinine, Serum 0.67 mg/dL (0.70-1.30); EST Glomerular Filtration Rate 123 mL/min (>60); Est Glom Filt Rate - Afr Amer 149 mL/min (>60); Glucose 112 mg/dL (74-106); Potassium 4.4 mmol/L (3.5-5.1); Sodium Level 144 mmol/L (136-145)
== END | disposition home or self-care (01) ==
LOC: LAB 11:00
PROVIDERS: PCP Family Medicine; Visit Provider Nurse Practitioner Family
DX: R06.02 Shortness of breath (principal)
CPT/HCPCS: 36415; 80048; 83880

== ENCOUNTER → 2022-08-15 | Outpatient (CLI) | payer BC, SELFPAY ==
--- NOTE | 2022-08-15 14:50 | ECHOD_ITS ---
Reason For Study: SOB Procedure This was a 2D Doppler, Color Flow transthoracic echocardiogram. Myocardial strain analysis was performed in this exam to aid in the assessment of cardiac function. Exam performed in department. Left Ventricle Normal LV size. Left ventricular systolic function is normal. The estimated ejection fraction is 60 %. Stage 1 diastolic dysfunction. No regional wall motion abnormalities noted. Right Ventricle Normal RV size. Normal systolic function. Atria Normal left atrium. Normal right atrium. Mitral Valve Normal mitral valve. Mild (1+) eccentric mitral valve insufficiency. Tricuspid Valve Normal tricuspid valve. Mild tricuspid valve insufficiency. Pulmonary artery systolic pressure is 21 mmHg. Aortic Valve Normal aortic valve. Pulmonic Valve Normal pulmonic valve. Great Vessels Normal aortic root. The pulmonary artery is normal size. Normal inferior vena cava. Pericardium/Pleural No pericardial effusion. MMode/2D Measurements & Calculations LVIDd: 4.3 cm IVSd: 1.2 cm Ao root diam: 3.6 cm LVIDs: 3.0 cm LVPWd: 1.1 cm RVDd: 3.3 cm FS: 30.0 % LAV(MOD-bp): 33.9 ml LVAd ap4: 23.9 cm2 SV(MOD-sp4): 33.2 ml LAV(MOD-bp) Indexed: 18.8 ml/m2 LVLd ap4: 8.5 cm LAV(MOD-sp2): 42.7 ml EDV(MOD-sp4): 55.1 ml LAV(MOD-sp4): 24.9 ml EDV(sp4-el): 57.5 ml LVAs ap4: 13.0 cm2 LVLs ap4: 6.8 cm ESV(MOD-sp4): 21.9 ml ESV(sp4-el): 21.1 ml EF(MOD-sp4): 60.2 % EF(sp4-el): 63.3 % SV(sp4-el): 36.4 ml LA A4 area: 12.1 cm2 LA dimension(2D): 3.6 cm RA A4 area: 11.3 cm2 Time Measurements MV dec time: 0.27 sec Doppler Measurements & Calculations MV E max derek: 41.9 cm/sec Lat Peak E' Derek: 8.3 cm/sec Med Peak E' Derek: 7.5 cm/sec MV A max derek: 46.0 cm/sec E/E' lat: 5.0 E/E' med: 5.6 MV E/A: 0.91 Ao V2 max: 126.8 cm/sec LV V1 max: 103.2 cm/sec MV dec slope: 156.8 cm/sec2 Ao max P.4 mmHg LV V1 max P.3 mmHg Ao V2 mean: 92.5 cm/sec Ao mean P.7 mmHg Ao V2 VTI: 23.2 cm PA V2 max: 117.9 cm/sec TR max derek: 214.0 cm/sec TR max P.3 mmHg ECHO/Echo Complete Interpretation Summary Normal LV size. Left ventricular systolic function is normal. The estimated ejection fraction is 60 %. Stage 1 diastolic dysfunction. The global longitudinal strain is borderline abnormal. The global longitudinal strain = -16.6% (abnormal). Ordering Physician: Jj Osborn Referring Physician: Mainor Childress Performed By: Ailyn Osborn, RDCS, RVT
== END | disposition home or self-care (01) ==
LOC: CVS 14:49
PROVIDERS: PCP Family Medicine; Visit Provider Nurse Practitioner Family
DX: R06.02 Shortness of breath (principal); R07.9 Chest pain, unspecified
CPT/HCPCS: 93306